=== PATIENT | female | born 1945 | race Caucasian/White ===

== ENCOUNTER 2017-10-27 00:20 | Inpatient (IN) | payer MEDICARE ==
[~2017-10-27] VITALS: Ht 157.5 cm; Wt 48.2 kg
[2017-10-27] MEDS ORDERED: CARB1TAB5 PO (00:30)
[2017-10-27] MEDS ORDERED: QUET25TA5 PO (00:30)
[2017-10-27] MEDS ORDERED: CLON0.5T3 PO (00:30)
[2017-10-27] MEDS ORDERED: MELA5TAB PO (00:30)
[2017-10-27] MEDS ORDERED: CARB1TAB2 PO (00:30)
[2017-10-27] MEDS ORDERED: ESCITALOPRAM OXA5 MG PO (00:30)
[2017-10-27] MEDS ORDERED: ONDA4TAB12 PO (01:00)
[2017-10-27] MEDS ORDERED: MAGN2400 PO (01:00)
[2017-10-27] MEDS ORDERED: ACET325T21 PO (01:00)
[2017-10-27] MEDS ORDERED: METHYL SALICYLATE/MENTHOL TOPICAL OINTMENT 29GM TUBE. TP PRN (01:00)
[2017-10-27] MEDS ORDERED: LOPE2CAP88 PO (01:00)
[2017-10-27] MEDS ORDERED: MAG355OR11 PO (01:00)
[2017-10-27] MEDS ORDERED: MECL25TA3 PO (01:00)
[2017-10-27] MEDS ORDERED: MAG HYDROX/AL HYDROX/SIMETH 30 ML ORAL.SUSP PO PRN (01:15)
[2017-10-27] MEDS ORDERED: MECLIZINE 12.5 MG TABLET. PO PRN (01:15)
[2017-10-27] MEDS ORDERED: LOPERAMIDE 2 MG CAPSULE PO PRN (01:15)
[2017-10-27 01:48] LABS: BACTERIA,URINE FEW /HPF (0-FEW); BILIRUBIN,URINE NEG (NEG); CLARITY,URINE CLEAR; COLOR,URINE YELLOW; GLUCOSE,URINE NEG (NEG); NITRITE,URINE NEG (NEG); RBC,URINE 0 /HPF (0-2); SQUAMOUS EPITHELIAL CELL,UR FEW /LPF; UROBILINOGEN,URINE 0.2 mg/dL (0.2 mg/dL)
[2017-10-27 03:50] VITALS: BP 174/94
[2017-10-27 06:35] VITALS: BP 173/67
[2017-10-27] MEDS: CARBIDOPA/LEVODOPA 25/100MG TABLET PO SCH ×3 (06:39→16:02)
[2017-10-27 07:40] LABS: BASO % 1 % (0-3); EOS % 1 % (0-3); HEMATOCRIT 35.9 % (36.0-47.0); HEMOGLOBIN 12.5 g/dL (12.0-15.5); LYMPH # 0.9 x10^3/uL (1.0-4.8); LYMPH % 16 % (24-48); MEAN CORPUSCULAR HEMOGLOBIN 33 pg (25-35); MEAN CORPUSCULAR HGB CONC 35 g/dL (31-37); MEAN CORPUSCULAR VOLUME 94 fL (79-100); MONO # 0.3 x10^3/uL (0.0-1.1); MONO % 5 % (0-9); NEUT # 4.4 x10^3uL (1.8-7.7); NEUT % 79 % (31-73); PLATELET COUNT 230 x10^3/uL (140-400); RED BLOOD COUNT 3.81 x10^6/uL (3.50-5.40); RED CELL DISTRIBUTION WIDTH 14.8 % (11.5-14.5); WHITE BLOOD COUNT 5.6 x10^3/uL (4.0-11.0)
[2017-10-27 08:00] LABS: ALBUMIN 3.7 g/dL (3.4-5.0); ALBUMIN/GLOBULIN RATIO 0.9 (1.0-1.7); CALCIUM 9.1 mg/dL (8.5-10.1); CREATININE 0.7 mg/dL (0.6-1.0); GFR 82.7; MAGNESIUM 2.1 mg/dL (1.8-2.4); POTASSIUM 3.4 mmol/L (3.5-5.1); TOTAL BILIRUBIN 0.7 mg/dL (0.2-1.0); TOTAL PROTEIN 7.7 g/dL (6.4-8.2)
[2017-10-27] MEDS ORDERED: CITALOPRAM 10 MG TABLET. PO SCH (09:00)
[2017-10-27] MEDS: QUEtiapine 25 MG TABLET. PO SCH (10:12)
[2017-10-27] MEDS: clonazePAM 0.5 MG TABLET PO SCH ×3 (10:12→19:56)
--- NOTE | 2017-10-27 12:34 | EKG ---
[address] [address] Test Date: 2017-10-27 Test Time: 11:27:26 Pat Name: TYLER ODOM Department: Room: [address] [place] [address] Gender: F Outreach Analyst: ASHOK : 1945 Requested By: MARIAH SEAMAN Order Number: [id number] Reading MD: Renaldo Mccoy MD Measurements Intervals [place] Rate: 61 P: 54 HI: 152 QRS: 11 QRSD: 86 T: 21 QT: 464 QTc: 473 Interpretive Statements SINUS RHYTHM NON-SPECIFIC ST/T CHANGES Electronically Signed On 11-04-2017 11:42:23 CDT by Renaldo Mccoy MD
[2017-10-27 14:57] LABS: THYROID STIM HORMONE (TSH) 6.263 uIU/mL (0.358-3.740)
[2017-10-27 16:49] VITALS: BP 170/79
[2017-10-27 18:14] LABS: T3 TOTAL 129 ng/dL (71-180); THYROXINE 6.4 ug/dL (4.5-12.0)
[2017-10-27] MEDS ORDERED: amLODIPine BESYLATE 5 MG TABLET PO ONE (18:45)
[2017-10-27] MEDS: CARBIDOPA/LEVODOPA CR 50/200MG TABLET.SA PO SCH (19:56)
[2017-10-27] MEDS: POTASSIUM CHLORIDE 20 MEQ TABLET.ER. PO SCH (19:57)
[2017-10-27] MEDS: rOPINIRole 0.5 MG TABLET. PO SCH (19:59)
--- NOTE | 2017-10-27 20:56 | PDOC ---
Exam Note: Mike Note: Please also refer to the separate dictated note~for this date of service dictated separately.~Patient seen individually. Discussed the patient with Nursing staff reviewed the chart.~Reviewed interim history and current functioning. Reviewed vital signs,~Labs/ Radiology~and current medications noted below. Continue current treatment with the changes noted in the dictated addendum note Assessment: Vital Signs: Vital Signs Date Time Temp Pulse Resp B/P (MAP) Pulse Ox O2 Delivery O2 Flow Rate FiO2 10/27/17 19:58 59 138/67 10/27/17 16:49 97.1 20 100 10/27/17 03:50 Room Air I&O Intake and Output 10/27/17 07:00 Intake Total 80 ml Balance 80 ml Intake Oral 80 ml Labs: Laboratory Tests Test 10/27/17 01:10 10/27/17 07:23 Urine Collection Type Unknown Urine Color Yellow Urine Clarity Clear Urine pH 7.0 Urine Specific [place] 1.015 Urine Protein Neg (NEG-TRACE) Urine Glucose (UA) Neg mg/dL (NEG) Urine Ketones (Stick) Trace mg/dL (NEG) Urine Blood Neg (NEG) Urine Nitrite Neg (NEG) Urine Bilirubin Neg (NEG) Urine Urobilinogen Dipstick 0.2 mg/dL (0.2 mg/dL) Urine Leukocyte Esterase Trace (NEG) Urine RBC 0 /HPF (0-2) Urine WBC 1-4 /HPF (0-4) Urine Squamous Epithelial Cells Few /LPF Urine Bacteria Few /HPF (0-FEW) White Blood Count 5.6 x10^3/uL (4.0-11.0) Red Blood Count 3.81 x10^6/uL (3.50-5.40) Hemoglobin 12.5 g/dL (12.0-15.5) Hematocrit 35.9 % (36.0-47.0) L Mean Corpuscular Volume 94 fL (79-100) Mean Corpuscular Hemoglobin 33 pg (25-35) Mean Corpuscular Hemoglobin Concent 35 g/dL (31-37) Red Cell Distribution Width 14.8 % (11.5-14.5) H Platelet Count 230 x10^3/uL (140-400) Neutrophils (%) (Auto) 79 % (31-73) H Lymphocytes (%) (Auto) 16 % (24-48) L Monocytes (%) (Auto) 5 % (0-9) Eosinophils (%) (Auto) 1 % (0-3) Basophils (%) (Auto) 1 % (0-3) Neutrophils # (Auto) 4.4 x10^3uL (1.8-7.7) Lymphocytes # (Auto) 0.9 x10^3/uL (1.0-4.8) L Monocytes # (Auto) 0.3 x10^3/uL (0.0-1.1) Eosinophils # (Auto) 0.0 x10^3/uL (0.0-0.7) Basophils # (Auto) 0.0 x10^3/uL (0.0-0.2) Sodium Level 141 mmol/L (136-145) Potassium Level 3.4 mmol/L (3.5-5.1) L Chloride Level 102 mmol/L (98-107) Carbon Dioxide Level 31 mmol/L (21-32) Anion Gap 8 (6-14) Blood Urea Nitrogen 10 mg/dL (7-20) Creatinine 0.7 mg/dL (0.6-1.0) Estimated GFR (Cockcroft-Gault) 82.7 BUN/Creatinine Ratio 14 (6-20) Glucose Level 97 mg/dL (70-99) Calcium Level 9.1 mg/dL (8.5-10.1) Magnesium Level 2.1 mg/dL (1.8-2.4) Iron Level 114 ug/dL (50-170) Total Iron Binding Capacity 258 ug/dL (250-450) Iron Saturation 44 % (15-34) H Total Bilirubin 0.7 mg/dL (0.2-1.0) Aspartate Amino Transferase (AST) 10 U/L (15-37) L Alanine Aminotransferase (ALT) 9 U/L (14-59) L Alkaline Phosphatase 64 U/L (46-116) Total Protein 7.7 g/dL (6.4-8.2) Albumin 3.7 g/dL (3.4-5.0) Albumin/Globulin Ratio 0.9 (1.0-1.7) L Triglycerides Level 94 mg/dL (0-150) Cholesterol Level 224 mg/dL (0-200) H LDL Cholesterol, Calculated 148 mg/dL (0-100) H VLDL Cholesterol, Calculated 18 mg/dL (0-40) Non-HDL Cholesterol Calculated 166 mg/dL (0-129) H HDL Cholesterol 58 mg/dL (40-60) Cholesterol/HDL Ratio 3.0 Thyroid Stimulating Hormone (TSH) 6.263 uIU/mL (0.358-3.740) Thyroxine (T4) 6.4 ug/dL (4.5-12.0) Total Triiodothyronine (TT3) 129 ng/dL (71-180) Rapid Plasma Reagin Pending Current Medications: Meds: Current Medications Multi-Ingredient Ointment (Analgesic [place]) 1 cherie PRN QID PRN TP MUSCLE PAIN; Start 10/27/17 at 01:00 Clonazepam (KlonoPIN) 0.5 mg TID PO Last administered on 10/27/17at 19:56; Start 10/27/17 at 09:00 Quetiapine Fumarate (SEROquel) 12.5 mg DAILY PO Last administered on 10/27/17at 10:12; Start 10/27/17 at 09:00 Citalopram Hydrobromide (CeleXA) 30 mg DAILY PO Last administered on 10/27/17at 10:12; Start 10/27/17 at 09:00; Stop 10/27/17 at 18:35; Status DC Melatonin 3 mg PRN QHS PRN PO INSOMNIA; Start 10/27/17 at 01:15 Acetaminophen (Tylenol) 650 mg PRN Q4HRS PRN PO PAIN / TEMP; Start 10/27/17 at 01:15 Carbidopa/Levodopa (Sinemet 25/100) 1 tab TIDAC PO Last administered on at 16:02; Start 10/27/17 at 07:30 Carbidopa/Levodopa (Sinemet Cr) 1 tab.sa QHS PO Last administered on 10/27/17at 19:56; Start 10/27/17 at 21:00 Loperamide HCl (Imodium) 2 mg PRN QID PRN PO DIARRHEA; Start 10/27/17 at 01:15 Ondansetron HCl (Zofran Odt) 4 mg PRN BID PRN PO NAUSEA/VOMITING; Start at 01:15 Al Hydroxide/Mg Hydroxide (Mylanta Plus Xs) 30 ml PRN Q4HRS PRN PO DYSPEPSIA; Start 10/27/17 at 01:15 Magnesium Hydroxide (Milk Of Magnesia) 2,400 mg PRN DAILY PRN PO CONSTIPATION; Start 10/27/17 at 01:15 Meclizine HCl (Antivert) 25 mg PRN TID PRN PO Dizziness; Start 10/27/17 at 01:15 Duloxetine HCl (Cymbalta) 30 mg DAILY PO ; Start 10/28/17 at 09:00; Stop 10/31/17 at 08:59 Duloxetine HCl (Cymbalta) 60 mg DAILY PO ; Start 10/31/17 at 09:00 Amlodipine Besylate (Norvasc) 5 mg 1X ONCE PO Last administered on 10/27/17at 19 :58; Start 10/27/17 at 18:45; Stop 10/27/17 at 18:49; Status DC Amlodipine Besylate (Norvasc) 10 mg DAILY PO ; Start 10/28/17 at 09:00 Potassium Chloride (Klor-Con) 20 meq TID PO Last administered on 10/27/17at 19:57 ; Start 10/27/17 at 21:00 Ropinirole HCl (Requip) 0.5 mg TID PO Last administered on 10/27/17at 19:59; Start 10/27/17 at 21:00 Active Scripts Active Reported Meclizine Hcl 25 Mg Tablet 25 Mg PO PRN TID PRN Milk Of Magnesia (Magnesium Hydroxide) 2,400 Mg/10 Ml Oral.susp 2,400 Mg PO PRN DAILY PRN Maalox Advanced Suspension (Mag Hydrox/Aluminum Hyd/Simeth) 355 Ml Oral.susp 30 Ml PO PRN Q4HRS PRN Ondansetron Odt (Ondansetron) 4 Mg Tab.rapdis 4 Mg PO PRN BID PRN Imodium A-D (Loperamide HCl) 2 Mg Capsule 2 Mg PO PRN PRN Acetaminophen 325 Mg Tablet 650 Mg PO PRN Q4HRS PRN Sinemet Cr 50-200 Tablet (Carbidopa/Levodopa) 1 Each Tablet.er 1 Tab PO QHS Sinemet 25-100 Mg Tablet (Carbidopa/Levodopa) 1 Each Tablet 1 Tab PO TID AT 0 Seroquel (Quetiapine Fumarate) 25 Mg Tablet 12.5 Mg PO DAILY Melatonin 5 Mg Tablet 5 Mg PO PRN QHS PRN Escitalopram Oxalate 5 Mg Tablet 15 Mg PO DAILY Clonazepam 0.5 Mg Tablet 0.5 Mg PO TID AT 01/07/1900 I have reviewed the current psychotropics carefully including drug interactions. Risk benefit ratio favors no change other than as noted in my dictated progress note. Diagnosis: Problems: (1) Anxiety disorder (2) Major depressive disorder, recurrent episode (3) Impulse control disorder MARIAH SEAMAN MD October 27, 2017 20:56
[2017-10-28 00:13] LABS: HEMOGLOBIN A1C 4.8 % (4.8-5.6)
[2017-10-28 05:39] VITALS: BP 136/77
[2017-10-28] MEDS: CARBIDOPA/LEVODOPA 25/100MG TABLET PO SCH ×3 (07:23→16:48)
[2017-10-28] MEDS: ACETAMINOPHEN 325 MG TABLET PO PRN (07:33)
--- NOTE | 2017-10-28 07:36 | HP ---
ADMIT DATE: 10/27/2017 PSYCHIATRIC ADMISSION HISTORY/EVALUATION This is a late entry for date of service 10/27/2017 and covers the elements not covered in my initial note of 10/27/2017. SUBJECTIVE: I met with the patient evening of 10/27/2017 for this evaluation. Discussed with nursing staff, reviewed the chart and previously discussed with nursing staff on 2 or 3 occasions to gather background historical information prompting this referral for admission from the [facility] Emergency Room, where she presented from [facility] referred by her primary care physician after she attempted suicide by cutting her left forearm with a razor blade and had left a suicide note for the family. CHIEF COMPLAINT: "Yes, I cut my wrist. I cannot deal with this." The patient related to her Parkinson disease and the tremors that is causing her worsening symptoms of depression as a consequence of this. HISTORY OF PRESENT ILLNESS: The patient relates being increasingly depressed, feeling hopeless, helpless, worthless over the past several weeks. She was previously an inpatient at [facility] in 05/2017 and since then has been back at the [facility]. She complains of being overwhelmed with her worsening Parkinson's, having some sleep and appetite changes, and then the resulting suicidal ideation when she decided to end her life and slashed her wrist resulting in their trip to the ER and referral to us. No clear history of bipolar disorder or homicidal ideation. PAST PSYCHIATRIC HISTORY: As above. MEDICAL HISTORY: Parkinson disease, hypertension, short term memory deficits. UA was sent for culture at admission. ALLERGIES: CODEINE, FLAGYL, SULFA. CODE STATUS: DNR. DIET: Regular. Accu-Cheks: None. MEDICATIONS: Takes her medications whole. AMBULATES: with walker. CURRENT PSYCHOTROPICS: Seroquel 12.5 mg daily, started 10/23/2017; Celexa 30 mg a day, Klonopin 0.5 mg 3 times a day, melatonin 3 mg at bedtime. FAMILY HISTORY: Noncontributory. SOCIAL HISTORY: No history of alcohol or drug abuse, physical, sexual or elder abuse. She is not known to be a perpetrator. 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 REACTION TO HOSPITALIZATION: The patient accepting of this assets, stable living at the facility and supportive family. MENTAL STATUS EXAMINATION: The patient was seen individually evening of 10/27/2017. She is alert, oriented, quite verbal open forthcoming. Mood is depressed. Affect is mood congruent. She is quite anxious. She does admit to feeling hopeless, helpless, worthless, speech coherent. Thought processes goal directed. No active suicidal or homicidal ideation, but she does admit she tried to end her life by slashing her wrist. LABORATORY DATA: Reviewed. IMPRESSION: Major depressive disorder, recurrent with suicidal ideation; anxiety disorder, unspecified; cognitive disorder, unspecified. Rest as above. PLAN: Admit to Geropsychiatry Unit at [facility]. I will see the patient daily individually from a psychiatric standpoint, medical followup per Dr. Walters/Dr. Camargo. We will go ahead and change the patient's Celexa to Cymbalta 30 mg a day increasing in 3-5 days up to 60 mg a day in an attempt to change her SSRI to an SNRI, hopefully with added efficacy. May consider augmentation with an increase in Seroquel in due course. Neurology consult with Dr. Crowell for her Parkinson's and further followup at [facility] for her Parkinson disease, where she sees Dr. Baxter. Estimated length of stay 10-12 days and she will return back to [facility] at discharge. MAN Yeni SEAMAN MD DR: SONALI/giovana JOB#: [id number] / [id number]
[2017-10-28] MEDS: POTASSIUM CHLORIDE 20 MEQ TABLET.ER. PO SCH ×3 (09:55→19:48)
[2017-10-28] MEDS: QUEtiapine 25 MG TABLET. PO SCH (09:55)
[2017-10-28] MEDS: rOPINIRole 0.5 MG TABLET. PO SCH ×3 (09:55→19:48)
[2017-10-28] MEDS: DULoxetine HCL 30 MG CAPSULE.DR PO SCH (09:58)
[2017-10-28] MEDS: amLODIPine BESYLATE 10 MG TABLET PO SCH (09:58)
[2017-10-28] MEDS: clonazePAM 0.5 MG TABLET PO SCH ×3 (09:58→19:49)
--- NOTE | 2017-10-28 13:48 | PN ---
DATE: 10/28/2017 SUBJECTIVE: The patient denies any new medical or neurological complaints. She has had Parkinson disease since 2014 and currently presented with chief complaints of resting tremor of the extremities, more prominent in the lower extremities. She has been suffering from major depressions with recent suicidal ideations and attempt by cutting her left forearm. Currently, she stated her tremor has somewhat improved and I did not see any resting tremor of the lower extremity. OBJECTIVE: GENERAL: Well-developed, well-nourished white female, not in acute distress. VITAL SIGNS: Blood pressure is 136/77, respiratory rate 20, pulse is 61, temperature 98.4, oxygen saturation is 96%. HEENT: Normocephalic, atraumatic, otherwise unremarkable. NECK: Supple. Negative for carotid bruit, lymphadenopathy, or thyromegaly. LUNGS: Clear to A and P. CARDIOVASCULAR: Regular rate and rhythm, normal S1, S2. ABDOMEN: Soft. Bowel sounds positive. EXTREMITIES: Negative for cyanosis, clubbing, pitting edema. NEUROLOGICAL EXAMINATION: Mental Status: The patient is alert and oriented x 3. Speech is fluent. There is no language dysfunction. Memory, judgment, and abstracting thinking are fair. The patient denies hallucination or delusion. Cranial nerves are intact. No focal motor or sensory deficit. The patient does not have any resting tremor this morning. Deep tendon reflexes are symmetric and active without pathology responses. Gait: The stance is steady. The patient uses a walker for ambulation. IMPRESSION: 1. Parkinson disease. Currently, started on a dopamine agonist ropinirol at 0.5 mg t.i.d. 2. Hypertension -- improved. 3. Multiple psychiatric problems include depressions, anxiety, and suicidal ideation and recent suicidal attempt. RECOMMENDATIONS: We will continue with current medical and psychiatric care. M Lianne KERNS MD DR: ALIYAH/giovana JOB#: [id number] / [id number] MANUELITO
--- NOTE | 2017-10-28 13:56 | CONS ---
DATE OF CONSULTATION: 10/27/2017 NEUROLOGY CONSULTATION REASON FOR CONSULTATION: Management of Parkinson's disease. HISTORY OF PRESENT ILLNESS: This is a 71-year-old right-handed female who was admitted geropsychiatric unit because of increasing symptoms of depressions. A neuro consult was requested because the patient has had a history of Parkinson's disease diagnosed in 2013. The patient presented to [facility] with a chief complaint of resting tremors of the lower extremities and sometimes of the upper extremities. She has had constant bradykinesia and intermittent balance impairment resulted in multiple falls. The patient has been on carbidopa/levodopa since the diagnosis, but in the last 3 weeks, she has noticed increased symptoms of tremor of the lower extremities, more prominent at rest. The patient was admitted to [facility] Emergency Room, transferred from [facility] after she had suicidal attempt by cutting her left forearm with a scissor blade and left a suicidal note. Currently, she denies headaches, visual disturbances, nausea, vomiting, chest pain, shortness of breath or palpitation, dysarthria, dysphagia, weakness, or paresthesia. PAST MEDICAL HISTORY: Significant for Parkinson disease diagnosed in 2013, hypertension, memory loss, severe depression, and recently suicidal attempt as described above. SOCIAL HISTORY: The patient is a resident of [facility]. 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 She denies smoking, alcohol drinking, or illicit drug use. FAMILY HISTORY: Noncontributory. CURRENT HOME MEDICATIONS: Tylenol, carbidopa/levodopa CR 50/100 at bedtime and carbidopa/levodopa 25/100 t.i.d., clonazepam, Celexa, Imodium, meclizine, melatonin, and Seroquel. ALLERGIES: SULFONAMIDE ANTIBIOTICS, SULFA DRUGS, CODEINE, and metronidazole. REVIEW OF SYSTEMS: Consistent with symptoms of parkinsonism of resting tremor of the upper and lower extremities, bradykinesia, frequent falls, and impaired balance along with depressions. PHYSICAL EXAMINATION: GENERAL: Well developed, well nourished white female, not in acute distress. She weighs 102.3 pounds. VITAL SIGNS: Blood pressure 170/79, respiratory rate 20, pulse is 60, temperature 97.1, oxygen saturation is 100% on room air. HEENT: Normocephalic, atraumatic, otherwise unremarkable. NECK: Supple. Negative for carotid bruit, lymphadenopathy, or thyromegaly. LUNGS: Clear to A and P. CARDIOVASCULAR: Regular rate and rhythm, normal S1-S2. There is no S3, S4 or murmur. ABDOMEN: Soft. Bowel sounds positive. EXTREMITIES: Negative for cyanosis, clubbing, or pitting edema. NEUROLOGICAL: MENTAL STATUS: The patient is alert and oriented x 3. The speech is fluent. There is no language dysfunction. The patient recalls 2/3 immediately and after 1 and 3 minutes. Judgment and abstracting thinking are fair. The patient appears to be anxious and depressed. CRANIAL NERVES: Visual brand are full. The pupils are reactive to light and accommodation. The extraocular movements are intact. There is no nystagmus. There is no facial motor or sensory deficit. Hearing is intact bilaterally. The palate is elevated symmetrically. Sternocleidomastoid muscles are powerful bilaterally. The patient shrugs her shoulders symmetrically. Protrudes her tongue in the midline without fasciculation or atrophy. MOTOR: No focal muscle bulk is seen. The tone is normal. The strength is 5/5 throughout. Sensory examination reveals normal pinprick, light touch, vibratory, and position senses. Deep tendon reflexes are symmetric and active without pathologic responses. Gait: The stance is steady. The patient uses a walker for ambulation. The patient does not swing her arms when she does not use a walker and she has a masked face typical for parkinsonism. Intermittent resting tremor of the lower extremities, more prominent on the left side, was noted, but the tremor disappeared when she stands up. Intermittent tremor of the left upper extremity was also noted, which disappeared when she extends her upper extremities. IMPRESSION: 1. Parkinson disease diagnosed in 2013, presented with intermittent resting tremor of the upper and lower extremities, more prominent in the left lower extremity. The tremor resolved by standing or moving her arms or legs. 2. Major depressions with suicidal ideation and attempt. 3. Anxiety disorders. 4. Hypertension. 5. Possible early dementia. RECOMMENDATION: 1. We will start the patient ropinirole 0.5 mg t.i.d. 2. Continue with current management with carbidopa/levodopa as stated above: 3. Continue with current psychiatric care initiated by Dr. Monreal. M Lianne KERNS MD DR: Vanessa JOB#: [id number] / [id number] MANUELITO
[2017-10-28 16:23] VITALS: BP 123/74
[2017-10-28] MEDS: CARBIDOPA/LEVODOPA CR 50/200MG TABLET.SA PO SCH (19:48)
[2017-10-28] MEDS: MELATONIN 3 MG TABLET PO PRN (19:50)
--- NOTE | 2017-10-28 21:02 | PDOC ---
Exam Note: Mike Note: Please also refer to the separate dictated note~for this date of service dictated separately.~Patient seen individually. Discussed the patient with Nursing staff reviewed the chart.~Reviewed interim history and current functioning. Reviewed vital signs,~Labs/ Radiology~and current medications noted below. Continue current treatment with the changes noted in the dictated addendum note Assessment: Vital Signs: Vital Signs Date Time Temp Pulse Resp B/P (MAP) Pulse Ox O2 Delivery O2 Flow Rate FiO2 10/28/17 16:23 97.1 56 18 123/74 (90) 99 10/27/17 03:50 Room Air I&O Intake and Output 10/28/17 07:00 Intake Total 560 ml Balance 560 ml Intake Oral 560 ml Current Medications: Meds: Current Medications Multi-Ingredient Ointment (Analgesic [place]) 1 cherie PRN QID PRN TP MUSCLE PAIN; Start 10/27/17 at 01:00 Clonazepam (KlonoPIN) 0.5 mg TID PO Last administered on 10/28/17 19:49; Start 10/27/17 at 09:00 Quetiapine Fumarate (SEROquel) 12.5 mg DAILY PO Last administered on 10/28/17 09:55; Start 10/27/17 at 09:00 Citalopram Hydrobromide (CeleXA) 30 mg DAILY PO Last administered on 10/27/17at 10:12; Start 10/27/17 at 09:00; Stop 10/27/17 at 18:35; Status DC Melatonin 3 mg PRN QHS PRN PO INSOMNIA Last administered on 10/28/17at 19:50; Start 10/27/17 at 01:15 Acetaminophen (Tylenol) 650 mg PRN Q4HRS PRN PO PAIN / TEMP Last administered on 10/28/17 07:33; Start 10/27/17 at 01:15 Carbidopa/Levodopa (Sinemet 25/100) 1 tab TIDAC PO Last administered on 16:48; Start 10/27/17 at 07:30 Carbidopa/Levodopa (Sinemet Cr) 1 tab.sa QHS PO Last administered on 10/28/17 19:48; Start 10/27/17 at 21:00 Loperamide HCl (Imodium) 2 mg PRN QID PRN PO DIARRHEA; Start 10/27/17 at 01:15 Ondansetron HCl (Zofran Odt) 4 mg PRN BID PRN PO NAUSEA/VOMITING; Start at 01:15 Al Hydroxide/Mg Hydroxide (Mylanta Plus Xs) 30 ml PRN Q4HRS PRN PO DYSPEPSIA; Start 10/27/17 at 01:15 Magnesium Hydroxide (Milk Of Magnesia) 2,400 mg PRN DAILY PRN PO CONSTIPATION; Start 10/27/17 at 01:15 Meclizine HCl (Antivert) 25 mg PRN TID PRN PO Dizziness; Start 10/27/17 at 01:15 Duloxetine HCl (Cymbalta) 30 mg DAILY PO Last administered on 10/28/17at 09:58; Start 10/28/17 at 09:00; Stop 10/31/17 at 08:59 Duloxetine HCl (Cymbalta) 60 mg DAILY PO ; Start 10/31/17 at 09:00 Amlodipine Besylate (Norvasc) 5 mg 1X ONCE PO Last administered on 10/27/17at 19 :58; Start 10/27/17 at 18:45; Stop 10/27/17 at 18:49; Status DC Amlodipine Besylate (Norvasc) 10 mg DAILY PO Last administered on 10/28/17at 09: 58; Start 10/28/17 at 09:00 Potassium Chloride (Klor-Con) 20 meq TID PO Last administered on 10/28/17at 19:48 ; Start 10/27/17 at 21:00 Ropinirole HCl (Requip) 0.5 mg TID PO Last administered on 10/28/17at 19:48; Start 10/27/17 at 21:00 Active Scripts Active Reported Meclizine Hcl 25 Mg Tablet 25 Mg PO PRN TID PRN Milk Of Magnesia (Magnesium Hydroxide) 2,400 Mg/10 Ml Oral.susp 2,400 Mg PO PRN DAILY PRN Maalox Advanced Suspension (Mag Hydrox/Aluminum Hyd/Simeth) 355 Ml Oral.susp 30 Ml PO PRN Q4HRS PRN Ondansetron Odt (Ondansetron) 4 Mg Tab.rapdis 4 Mg PO PRN BID PRN Imodium A-D (Loperamide HCl) 2 Mg Capsule 2 Mg PO PRN PRN Acetaminophen 325 Mg Tablet 650 Mg PO PRN Q4HRS PRN Sinemet Cr 50-200 Tablet (Carbidopa/Levodopa) 1 Each Tablet.er 1 Tab PO QHS Sinemet 25-100 Mg Tablet (Carbidopa/Levodopa) 1 Each Tablet 1 Tab PO TID AT 0 Seroquel (Quetiapine Fumarate) 25 Mg Tablet 12.5 Mg PO DAILY Melatonin 5 Mg Tablet 5 Mg PO PRN QHS PRN Escitalopram Oxalate 5 Mg Tablet 15 Mg PO DAILY Clonazepam 0.5 Mg Tablet 0.5 Mg PO TID AT 01/07/1900 I have reviewed the current psychotropics carefully including drug interactions. Risk benefit ratio favors no change other than as noted in my dictated progress note. Diagnosis: Problems: (1) Anxiety disorder (2) Major depressive disorder, recurrent episode (3) Impulse control disorder MARIAH SEAMAN MD October 28, 2017 21:02
--- NOTE | 2017-10-29 03:59 | CONS ---
DATE OF CONSULTATION: 10/28/2017 REASON FOR CONSULTATION: Medical management. HISTORY OF PRESENT ILLNESS: The patient is a 71-year-old patient, who basically was referred for admission from [facility], where she presented from [facility] after she attempted suicide by cutting her left forearm with a razor blade, had left a suicide note for her family stating that she cut her wrist and cannot deal with this anymore, stating that her Parkinson disease and tremors are causing her worsening symptoms and depression as a consequence of this. 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 She was basically admitted because of suicidal attempt. PAST MEDICAL HISTORY: Significant for Parkinson's disease, hypertension. ALLERGIES: SHE IS ALLERGIC TO CODEINE, FLAGYL, AND SULFA. MEDICATIONS: She is currently on the following: She is on 650 mg every 4 hours as needed, clonazepam 0.5 mg 3 times a day, escitalopram oxalate 15 mg once a day, quetiapine fumarate 12.5 mg daily, carbidopa/levodopa 25/100 mg 1 tablet 3 times a day and carbidopa and levodopa at bedtime. She is on Maalox 30 mL every 4 hours, loperamide 2 mg p.o. as needed for diarrhea, magnesium hydroxide, milk of magnesia 30 mL p.o. daily for constipation, meclizine 25 mg 3 times a day for dizziness, ondansetron 4 mg twice a day and melatonin for insomnia. FAMILY HISTORY: Unremarkable. SOCIAL HISTORY: She is , has 3 children. She does not smoke, drink alcohol or recreational drugs. She is now living in assisted living. PHYSICAL EXAMINATION: GENERAL: When I examined her this afternoon, she was sitting comfortably in her chair, in no apparent respiratory distress, slightly pale, but no jaundice, cyanosis or thyromegaly. No jugular venous distention. No limb edema. VITAL SIGNS: Her heart rate was 56, blood pressure 123/74, temperature was 97.1, respiratory rate was 18 and oxygen saturation was 99% on room air. HEAD, EYES, EARS, NOSE, and THROAT: Showed normocephalic, atraumatic. NECK: Supple. HEART: Showed normal first and second heart sounds. No gallop, rub or murmur. CHEST: Clear to auscultation. No crepitation or rhonchi. ABDOMEN: Soft, nontender. NEUROLOGIC: She is awake, alert, responding appropriately. All cranial nerves intact. EXTREMITIES: She moves extremities without difficulty. She ambulates with a walker with a slow shuffling gait. She at least when I saw her, she had displayed no evidence of any parkinsonian tremors, although she seemed to be experiencing what . LABORATORY DATA: Her lab work showed a white cell count of 5600, hemoglobin 12.5, hematocrit 36, MCV 94 and platelet count 230,000 with normal manual differential. Her chemistry showed a serum sodium of 141, potassium 3.4, chloride 102, bicarbonate 31, anion gap of 8, BUN 10, creatinine 0.7, estimated GFR was 83, glucose 97, calcium was 9.1, magnesium was 2.1. Total bilirubin, AST, ALT, alkaline phosphatase were normal. Total protein 7.7, albumin 3.7. Her serum Hemoglobin A1c was 4.8%. Serum iron of 14, TIBC 258 and percent saturation was 44%. Her serum triglycerides were 94, total cholesterol 224, LDL was 148, VLDL was only 18 and HDL cholesterol was 58, ratio was 3. Her TSH was slightly elevated 6.63, but total T4 and total T3 were normal. Her vitamin B12 was 333 pg/mL and 25-hydroxyvitamin D was 41 ng/mL, which is well within normal range. Urinalysis was essentially unremarkable and the RPR is nonreactive. IMPRESSION: In summary, this is a 71-year-old female patient, who basically was admitted because she cut her forearm with a razor as a suicidal attempt and left a note to her family. All this in the account of increasingly depressed, feeling hopeless, helpless, worthless over the last several weeks because of worsening Parkinson's disease with recurrent falls. From a medical point of view, at least her vital signs seemed to be stable. Her lab work and medications seemed to be all appropriate. We have already consulted Dr. Crowell to assist with the management of his Parkinson's disease. Meanwhile, I will continue to follow all the lab work, it is still pending at the time of this dictation and make necessary recommendation. Thank you, Dr. Monreal for allowing me to participate in the care of this patient. RENETTA ALVARADO MD DR: RUCHI/giovana JOB#: [id number] / [id number]
[2017-10-29 05:55] VITALS: BP 123/57
[2017-10-29] MEDS: CARBIDOPA/LEVODOPA 25/100MG TABLET PO SCH ×3 (07:17→16:56)
[2017-10-29] MEDS: ACETAMINOPHEN 325 MG TABLET PO PRN (07:20)
[2017-10-29] MEDS: POTASSIUM CHLORIDE 20 MEQ TABLET.ER. PO SCH ×3 (07:46→19:30)
[2017-10-29] MEDS: DULoxetine HCL 30 MG CAPSULE.DR PO SCH (07:46)
[2017-10-29] MEDS: rOPINIRole 0.5 MG TABLET. PO SCH ×3 (07:46→19:30)
[2017-10-29] MEDS: amLODIPine BESYLATE 10 MG TABLET PO SCH (07:47)
[2017-10-29] MEDS: QUEtiapine 25 MG TABLET. PO SCH (07:47)
[2017-10-29] MEDS: clonazePAM 0.5 MG TABLET PO SCH ×3 (07:48→19:30)
[2017-10-29 15:55] VITALS: BP 108/65
[2017-10-29] MEDS: CARBIDOPA/LEVODOPA CR 50/200MG TABLET.SA PO SCH (19:30)
--- NOTE | 2017-10-29 21:04 | PDOC ---
Exam Note: Mike Note: Please also refer to the separate dictated note~for this date of service dictated separately.~Patient seen individually. Discussed the patient with Nursing staff reviewed the chart.~Reviewed interim history and current functioning. Reviewed vital signs,~Labs/ Radiology~and current medications noted below. Continue current treatment with the changes noted in the dictated addendum note Assessment: Vital Signs: Vital Signs Date Time Temp Pulse Resp B/P (MAP) Pulse Ox O2 Delivery O2 Flow Rate FiO2 10/29/17 15:55 97.0 66 16 108/65 (79) 98 10/27/17 03:50 Room Air I&O Intake and Output 10/29/17 07:00 Intake Total 600 ml Balance 600 ml Intake Oral 600 ml Current Medications: Meds: Current Medications Multi-Ingredient Ointment (Analgesic [place]) 1 cherie PRN QID PRN TP MUSCLE PAIN; Start 10/27/17 at 01:00 Clonazepam (KlonoPIN) 0.5 mg TID PO Last administered on 10/29/17 19:30; Start 10/27/17 at 09:00 Quetiapine Fumarate (SEROquel) 12.5 mg DAILY PO Last administered on 10/29/17 07:47; Start 10/27/17 at 09:00 Citalopram Hydrobromide (CeleXA) 30 mg DAILY PO Last administered on 10/27/17 10:12; Start 10/27/17 at 09:00; Stop 10/27/17 at 18:35; Status DC Melatonin 3 mg PRN QHS PRN PO INSOMNIA Last administered on 10/28/17 19:50; Start 10/27/17 at 01:15 Acetaminophen (Tylenol) 650 mg PRN Q4HRS PRN PO PAIN / TEMP Last administered on 10/29/17 07:20; Start 10/27/17 at 01:15 Carbidopa/Levodopa (Sinemet 25/100) 1 tab TIDAC PO Last administered on 16:56; Start 10/27/17 at 07:30 Carbidopa/Levodopa (Sinemet Cr) 1 tab.sa QHS PO Last administered on 10/29/17 19:30; Start 10/27/17 at 21:00 Loperamide HCl (Imodium) 2 mg PRN QID PRN PO DIARRHEA; Start 10/27/17 at 01:15 Ondansetron HCl (Zofran Odt) 4 mg PRN BID PRN PO NAUSEA/VOMITING; Start at 01:15 Al Hydroxide/Mg Hydroxide (Mylanta Plus Xs) 30 ml PRN Q4HRS PRN PO DYSPEPSIA; Start 10/27/17 at 01:15 Magnesium Hydroxide (Milk Of Magnesia) 2,400 mg PRN DAILY PRN PO CONSTIPATION; Start 10/27/17 at 01:15 Meclizine HCl (Antivert) 25 mg PRN TID PRN PO Dizziness; Start 10/27/17 at 01:15 Duloxetine HCl (Cymbalta) 30 mg DAILY PO Last administered on 10/29/17at 07:46; Start 10/28/17 at 09:00; Stop 10/31/17 at 08:59 Duloxetine HCl (Cymbalta) 60 mg DAILY PO ; Start 10/31/17 at 09:00 Amlodipine Besylate (Norvasc) 5 mg 1X ONCE PO Last administered on 10/27/17at 19 :58; Start 10/27/17 at 18:45; Stop 10/27/17 at 18:49; Status DC Amlodipine Besylate (Norvasc) 10 mg DAILY PO Last administered on 10/29/17at 07: 47; Start 10/28/17 at 09:00 Potassium Chloride (Klor-Con) 20 meq TID PO Last administered on 10/29/17at 19:30 ; Start 10/27/17 at 21:00 Ropinirole HCl (Requip) 0.5 mg TID PO Last administered on 10/29/17at 19:30; Start 10/27/17 at 21:00 Active Scripts Active Reported Meclizine Hcl 25 Mg Tablet 25 Mg PO PRN TID PRN Milk Of Magnesia (Magnesium Hydroxide) 2,400 Mg/10 Ml Oral.susp 2,400 Mg PO PRN DAILY PRN Maalox Advanced Suspension (Mag Hydrox/Aluminum Hyd/Simeth) 355 Ml Oral.susp 30 Ml PO PRN Q4HRS PRN Ondansetron Odt (Ondansetron) 4 Mg Tab.rapdis 4 Mg PO PRN BID PRN Imodium A-D (Loperamide HCl) 2 Mg Capsule 2 Mg PO PRN PRN Acetaminophen 325 Mg Tablet 650 Mg PO PRN Q4HRS PRN Sinemet Cr 50-200 Tablet (Carbidopa/Levodopa) 1 Each Tablet.er 1 Tab PO QHS Sinemet 25-100 Mg Tablet (Carbidopa/Levodopa) 1 Each Tablet 1 Tab PO TID AT 0 Seroquel (Quetiapine Fumarate) 25 Mg Tablet 12.5 Mg PO DAILY Melatonin 5 Mg Tablet 5 Mg PO PRN QHS PRN Escitalopram Oxalate 5 Mg Tablet 15 Mg PO DAILY Clonazepam 0.5 Mg Tablet 0.5 Mg PO TID AT 01/07/1900 I have reviewed the current psychotropics carefully including drug interactions. Risk benefit ratio favors no change other than as noted in my dictated progress note. Diagnosis: Problems: (1) Anxiety disorder (2) Major depressive disorder, recurrent episode (3) Impulse control disorder MARIAH SEAMAN MD October 29, 2017 21:04
[2017-10-30 06:19] VITALS: BP 129/75
[2017-10-30] MEDS: amLODIPine BESYLATE 10 MG TABLET PO SCH (07:45)
[2017-10-30] MEDS: POTASSIUM CHLORIDE 20 MEQ TABLET.ER. PO SCH ×3 (07:45→19:33)
[2017-10-30] MEDS: QUEtiapine 25 MG TABLET. PO SCH (07:46)
[2017-10-30] MEDS: rOPINIRole 0.5 MG TABLET. PO SCH ×3 (07:46→19:33)
[2017-10-30] MEDS: DULoxetine HCL 30 MG CAPSULE.DR PO SCH (07:46)
[2017-10-30] MEDS: CARBIDOPA/LEVODOPA 25/100MG TABLET PO SCH ×3 (07:46→16:30)
[2017-10-30] MEDS: clonazePAM 0.5 MG TABLET PO SCH ×3 (07:46→19:33)
[2017-10-30] MEDS: ACETAMINOPHEN 325 MG TABLET PO PRN (16:30)
[2017-10-30 16:53] VITALS: BP 117/62
--- NOTE | 2017-10-30 17:23 | PN ---
DATE: 10/28/2017 This is a late entry 10/28, covers elements not covered in my initial note 10/28. SUBJECTIVE: The patient was staffed at treatment team meeting with the entire team in the morning, seen individually in the evening. The patient remains somewhat depressed, anxious, minimizes circumstances prompting admission, minimizes her admission to the Psychiatry Unit at [facility] in May. States this was for her Parkinson's disease. Insight is rather limited and wanting to be returned back to the assisted living. I addressed with her at length the need for stabilization to prevent repeated hospitalizations or another suicide attempt. REVIEW OF SYSTEMS: Ambulation impaired, with a walker. No CV, , pulmonary, eye, ENT system symptoms on review. MENTAL STATUS EXAM: Reasonably oriented. Speech coherent, has some latency. Abstraction fair, computation impaired, language function intact. Mood and affect still depressed, anxious, but improved. Salima, social science instructor had also called me earlier in the day and she has talked to the patient at length about goals for this hospitalization to prevent readmission. IMPRESSION: Major depressive disorder, in partial remission with status post suicide attempt. PLAN: She is currently on Cymbalta 30 mg a day. We will increase gradually. Continue Seroquel. Rest unchanged including Klonopin, which may need to taper. MARIAH SEAMAN MD DR: SONALI/giovana JOB#: [id number] / [id number]
[2017-10-30] MEDS: CARBIDOPA/LEVODOPA CR 50/200MG TABLET.SA PO SCH (19:33)
--- NOTE | 2017-10-30 23:01 | PDOC ---
Exam Note: Mike Note: Please also refer to the separate dictated note~for this date of service dictated separately.~Patient seen individually. Discussed the patient with Nursing staff reviewed the chart.~Reviewed interim history and current functioning. Reviewed vital signs,~Labs/ Radiology~and current medications noted below. Continue current treatment with the changes noted in the dictated addendum note Assessment: Vital Signs: Vital Signs Date Time Temp Pulse Resp B/P (MAP) Pulse Ox O2 Delivery O2 Flow Rate FiO2 10/30/17 16:53 97.6 62 16 117/62 (80) 91 10/27/17 03:50 Room Air I&O Intake and Output 10/30/17 07:00 Intake Total 760 ml Balance 760 ml Intake Oral 760 ml Current Medications: Meds: Current Medications Multi-Ingredient Ointment (Analgesic [place]) 1 cherie PRN QID PRN TP MUSCLE PAIN; Start 10/27/17 at 01:00 Clonazepam (KlonoPIN) 0.5 mg TID PO Last administered on 10/30/17 19:33; Start 10/27/17 at 09:00 Quetiapine Fumarate (SEROquel) 12.5 mg DAILY PO Last administered on 10/30/17 07:46; Start 10/27/17 at 09:00 Citalopram Hydrobromide (CeleXA) 30 mg DAILY PO Last administered on 10/27/17 10:12; Start 10/27/17 at 09:00; Stop 10/27/17 at 18:35; Status DC Melatonin 3 mg PRN QHS PRN PO INSOMNIA Last administered on 10/28/17 19:50; Start 10/27/17 at 01:15 Acetaminophen (Tylenol) 650 mg PRN Q4HRS PRN PO PAIN / TEMP Last administered on 10/30/17 16:30; Start 10/27/17 at 01:15 Carbidopa/Levodopa (Sinemet 25/100) 1 tab TIDAC PO Last administered on 16:30; Start 10/27/17 at 07:30 Carbidopa/Levodopa (Sinemet Cr) 1 tab.sa QHS PO Last administered on 10/30/17 19:33; Start 10/27/17 at 21:00 Loperamide HCl (Imodium) 2 mg PRN QID PRN PO DIARRHEA; Start 10/27/17 at 01:15 Ondansetron HCl (Zofran Odt) 4 mg PRN BID PRN PO NAUSEA/VOMITING; Start at 01:15 Al Hydroxide/Mg Hydroxide (Mylanta Plus Xs) 30 ml PRN Q4HRS PRN PO DYSPEPSIA; Start 10/27/17 at 01:15 Magnesium Hydroxide (Milk Of Magnesia) 2,400 mg PRN DAILY PRN PO CONSTIPATION; Start 10/27/17 at 01:15 Meclizine HCl (Antivert) 25 mg PRN TID PRN PO Dizziness; Start 10/27/17 at 01:15 Duloxetine HCl (Cymbalta) 30 mg DAILY PO Last administered on 10/30/17at 07:46; Start 10/28/17 at 09:00; Stop 10/31/17 at 08:59 Duloxetine HCl (Cymbalta) 60 mg DAILY PO ; Start 10/31/17 at 09:00 Amlodipine Besylate (Norvasc) 5 mg 1X ONCE PO Last administered on 10/27/17at 19 :58; Start 10/27/17 at 18:45; Stop 10/27/17 at 18:49; Status DC Amlodipine Besylate (Norvasc) 10 mg DAILY PO Last administered on 10/30/17at 07: 45; Start 10/28/17 at 09:00 Potassium Chloride (Klor-Con) 20 meq TID PO Last administered on 10/30/17 19:33 ; Start 10/27/17 at 21:00 Ropinirole HCl (Requip) 0.5 mg TID PO Last administered on 10/30/17 19:33; Start 10/27/17 at 21:00 Active Scripts Active Reported Meclizine Hcl 25 Mg Tablet 25 Mg PO PRN TID PRN Milk Of Magnesia (Magnesium Hydroxide) 2,400 Mg/10 Ml Oral.susp 2,400 Mg PO PRN DAILY PRN Maalox Advanced Suspension (Mag Hydrox/Aluminum Hyd/Simeth) 355 Ml Oral.susp 30 Ml PO PRN Q4HRS PRN Ondansetron Odt (Ondansetron) 4 Mg Tab.rapdis 4 Mg PO PRN BID PRN Imodium A-D (Loperamide HCl) 2 Mg Capsule 2 Mg PO PRN PRN Acetaminophen 325 Mg Tablet 650 Mg PO PRN Q4HRS PRN Sinemet Cr 50-200 Tablet (Carbidopa/Levodopa) 1 Each Tablet.er 1 Tab PO QHS Sinemet 25-100 Mg Tablet (Carbidopa/Levodopa) 1 Each Tablet 1 Tab PO TID AT 0 Seroquel (Quetiapine Fumarate) 25 Mg Tablet 12.5 Mg PO DAILY Melatonin 5 Mg Tablet 5 Mg PO PRN QHS PRN Escitalopram Oxalate 5 Mg Tablet 15 Mg PO DAILY Clonazepam 0.5 Mg Tablet 0.5 Mg PO TID AT 01/07/1900 I have reviewed the current psychotropics carefully including drug interactions. Risk benefit ratio favors no change other than as noted in my dictated progress note. Diagnosis: Problems: (1) Anxiety disorder (2) Major depressive disorder, recurrent episode (3) Impulse control disorder MARIAH SEAMAN MD October 30, 2017 23:01
[2017-10-31 06:24] VITALS: BP 105/54
[2017-10-31] MEDS: ACETAMINOPHEN 325 MG TABLET PO PRN (06:32)
[2017-10-31] MEDS: POTASSIUM CHLORIDE 20 MEQ TABLET.ER. PO SCH ×3 (07:55→20:00)
[2017-10-31] MEDS: CARBIDOPA/LEVODOPA 25/100MG TABLET PO SCH ×3 (07:56→16:30)
[2017-10-31] MEDS: amLODIPine BESYLATE 10 MG TABLET PO SCH (07:56)
[2017-10-31] MEDS: rOPINIRole 0.5 MG TABLET. PO SCH ×3 (07:56→20:00)
[2017-10-31] MEDS: QUEtiapine 25 MG TABLET. PO SCH (07:56)
[2017-10-31] MEDS: DULoxetine HCL 60 MG CAPSULE.DR PO SCH (07:58)
[2017-10-31] MEDS: clonazePAM 0.5 MG TABLET PO SCH ×3 (07:58→20:01)
--- NOTE | 2017-10-31 12:14 | PN ---
DATE: 10/30/2017 SUBJECTIVE: The patient has been crying since this morning. She told me she is very sorry, she tried to commit suicide a few days ago and she is very anxious and depressed. However, resting tremor of the left upper extremity and intermittent tremor of the arms and hands has increased since this morning. She denies headaches, visual disturbances, nausea, vomiting, chest pain, shortness of breath or palpitation. OBJECTIVE: GENERAL: Well-developed, well-nourished white female, not in acute distress. VITAL SIGNS: Blood pressure 129/75, respiratory rate 20, pulse is 79 and regular, temperature 97.2, oxygen saturation 96% on room air. HEENT: Normocephalic, atraumatic, otherwise unremarkable. NECK: Supple. Negative for carotid bruit, lymphadenopathy or thyromegaly. LUNGS: Clear to A and P. CARDIOVASCULAR: Regular rate and rhythm, normal S1, S2. There is no S3, S4 or murmur. ABDOMEN: Soft. Bowel sounds positive. EXTREMITIES: Negative for cyanosis, clubbing or pitting edema. NEUROLOGIC: Mental status: The patient is alert and oriented x 3. Speech is fluent. There is no language dysfunction. Memory, judgment and abstracting thinking are fair. The patient denies hallucination or delusion. She is very depressed and anxious. Cranial nerves are intact. Motor Examination: No focal muscle bulk was seen. The tone is normal. The strength is 5/5 throughout. The patient has intermittent resting tremor of the left lower extremity. The tremor subsided by walking. Sensory: Normal pinprick, light touch, vibratory and position senses. Deep tendon reflexes were symmetric and active without pathology responses. Gait: The patient uses a walker for ambulation. 1. IMPRESSION: History of Parkinson's disease with symptoms and signs of Parkinsonism including resting tremor, bradykinesia and gait disturbances. 2. Multiple psychiatric problems include major depressions, anxiety and recent history of suicide attempt. RECOMMENDATIONS: 1. Continue with current management initiated by Dr. Walters. 2. Continue with carbidopa/levodopa as scheduled along with . M Lianne KERNS MD DR: ALIYAH/giovana JOB#: [id number] / [id number]
[2017-10-31 16:38] VITALS: BP 97/59
--- NOTE | 2017-10-31 18:47 | PDOC ---
Exam Note: Mike Note: Please also refer to the separate dictated note~for this date of service dictated separately.~Patient seen individually. Discussed the patient with Nursing staff reviewed the chart.~Reviewed interim history and current functioning. Reviewed vital signs,~Labs/ Radiology~and current medications noted below. Continue current treatment with the changes noted in the dictated addendum note Assessment: Vital Signs: Vital Signs Date Time Temp Pulse Resp B/P (MAP) Pulse Ox O2 Delivery O2 Flow Rate FiO2 10/31/17 16:38 97.8 74 18 97/59 (72) 100 10/27/17 03:50 Room Air I&O Intake and Output 10/31/17 07:00 Intake Total 1100 ml Balance 1100 ml Intake Oral 1100 ml Current Medications: Meds: Current Medications Multi-Ingredient Ointment (Analgesic [place]) 1 cherie PRN QID PRN TP MUSCLE PAIN; Start 10/27/17 at 01:00 Clonazepam (KlonoPIN) 0.5 mg TID PO Last administered on 10/31/17 14:23; Start 10/27/17 at 09:00 Quetiapine Fumarate (SEROquel) 12.5 mg DAILY PO Last administered on 10/31/17at 07:56; Start 10/27/17 at 09:00 Citalopram Hydrobromide (CeleXA) 30 mg DAILY PO Last administered on 10/27/17at 10:12; Start 10/27/17 at 09:00; Stop 10/27/17 at 18:35; Status DC Melatonin 3 mg PRN QHS PRN PO INSOMNIA Last administered on 10/28/17 19:50; Start 10/27/17 at 01:15 Acetaminophen (Tylenol) 650 mg PRN Q4HRS PRN PO PAIN / TEMP Last administered on 10/31/17 06:32; Start 10/27/17 at 01:15 Carbidopa/Levodopa (Sinemet 25/100) 1 tab TIDAC PO Last administered on 16:30; Start 10/27/17 at 07:30 Carbidopa/Levodopa (Sinemet Cr) 1 tab.sa QHS PO Last administered on 10/30/17 19:33; Start 10/27/17 at 21:00 Loperamide HCl (Imodium) 2 mg PRN QID PRN PO DIARRHEA; Start 10/27/17 at 01:15 Ondansetron HCl (Zofran Odt) 4 mg PRN BID PRN PO NAUSEA/VOMITING; Start at 01:15 Al Hydroxide/Mg Hydroxide (Mylanta Plus Xs) 30 ml PRN Q4HRS PRN PO DYSPEPSIA; Start 10/27/17 at 01:15 Magnesium Hydroxide (Milk Of Magnesia) 2,400 mg PRN DAILY PRN PO CONSTIPATION; Start 10/27/17 at 01:15 Meclizine HCl (Antivert) 25 mg PRN TID PRN PO Dizziness; Start 10/27/17 at 01:15 Duloxetine HCl (Cymbalta) 30 mg DAILY PO Last administered on 10/30/17at 07:46; Start 10/28/17 at 09:00; Stop 10/31/17 at 08:59; Status DC Duloxetine HCl (Cymbalta) 60 mg DAILY PO Last administered on 10/31/17at 07:58; Start 10/31/17 at 09:00 Amlodipine Besylate (Norvasc) 5 mg 1X ONCE PO Last administered on 10/27/17at 19 :58; Start 10/27/17 at 18:45; Stop 10/27/17 at 18:49; Status DC Amlodipine Besylate (Norvasc) 10 mg DAILY PO Last administered on 10/30/17at 07: 45; Start 10/28/17 at 09:00 Potassium Chloride (Klor-Con) 20 meq TID PO Last administered on 10/31/17at 14:24 ; Start 10/27/17 at 21:00 Ropinirole HCl (Requip) 0.5 mg TID PO Last administered on 10/31/17at 14:24; Start 10/27/17 at 21:00 Active Scripts Active Reported Meclizine Hcl 25 Mg Tablet 25 Mg PO PRN TID PRN Milk Of Magnesia (Magnesium Hydroxide) 2,400 Mg/10 Ml Oral.susp 2,400 Mg PO PRN DAILY PRN Maalox Advanced Suspension (Mag Hydrox/Aluminum Hyd/Simeth) 355 Ml Oral.susp 30 Ml PO PRN Q4HRS PRN Ondansetron Odt (Ondansetron) 4 Mg Tab.rapdis 4 Mg PO PRN BID PRN Imodium A-D (Loperamide HCl) 2 Mg Capsule 2 Mg PO PRN PRN Acetaminophen 325 Mg Tablet 650 Mg PO PRN Q4HRS PRN Sinemet Cr 50-200 Tablet (Carbidopa/Levodopa) 1 Each Tablet.er 1 Tab PO QHS Sinemet 25-100 Mg Tablet (Carbidopa/Levodopa) 1 Each Tablet 1 Tab PO TID AT 0 Seroquel (Quetiapine Fumarate) 25 Mg Tablet 12.5 Mg PO DAILY Melatonin 5 Mg Tablet 5 Mg PO PRN QHS PRN Escitalopram Oxalate 5 Mg Tablet 15 Mg PO DAILY Clonazepam 0.5 Mg Tablet 0.5 Mg PO TID AT 01/07/1900 I have reviewed the current psychotropics carefully including drug interactions. Risk benefit ratio favors no change other than as noted in my dictated progress note. Diagnosis: Problems: (1) Dementia in Alzheimer's disease with depression (2) Mild cognitive impairment (3) Impulse control disorder (4) Major depressive disorder, recurrent episode (5) Anxiety disorder MARIAH SEAMAN MD October 31, 2017 18:47
[2017-10-31] MEDS: CARBIDOPA/LEVODOPA CR 50/200MG TABLET.SA PO SCH (20:00)
[2017-10-31] MEDS: MAGNESIUM HYDROXIDE 2,400 MG/30 ML ORAL.SUSP. PO PRN (23:31)
[2017-10-31] MEDS: MELATONIN 3 MG TABLET PO PRN (23:32)
[2017-11-01] MEDS: rOPINIRole 0.5 MG TABLET. PO SCH ×3 (04:50→20:36)
[2017-11-01] MEDS: DULoxetine HCL 60 MG CAPSULE.DR PO SCH (04:51)
[2017-11-01] MEDS: POTASSIUM CHLORIDE 20 MEQ TABLET.ER. PO SCH ×3 (04:52→20:36)
[2017-11-01] MEDS: CARBIDOPA/LEVODOPA 25/100MG TABLET PO SCH ×3 (04:52→16:18)
[2017-11-01] MEDS: amLODIPine BESYLATE 10 MG TABLET PO SCH (04:52)
[2017-11-01] MEDS: QUEtiapine 25 MG TABLET. PO SCH (04:53)
[2017-11-01] MEDS: clonazePAM 0.5 MG TABLET PO SCH ×3 (04:54→20:38)
[2017-11-01 06:27] VITALS: BP 142/59
[2017-11-01] MEDS: ACETAMINOPHEN 325 MG TABLET PO PRN (09:17)
[2017-11-01] MEDS: ONDANSETRON ODT 4 MG TAB.RAPDIS PO PRN (10:39)
[2017-11-01 16:31] VITALS: BP 118/76
[2017-11-01] MEDS: CARBIDOPA/LEVODOPA CR 50/200MG TABLET.SA PO SCH (20:36)
--- NOTE | 2017-11-01 20:58 | PDOC ---
Exam Note: Mike Note: Please also refer to the separate dictated note~for this date of service dictated separately.~Patient seen individually. Discussed the patient with Nursing staff reviewed the chart.~Reviewed interim history and current functioning. Reviewed vital signs,~Labs/ Radiology~and current medications noted below. Continue current treatment with the changes noted in the dictated addendum note Assessment: Vital Signs: Vital Signs Date Time Temp Pulse Resp B/P (MAP) Pulse Ox O2 Delivery O2 Flow Rate FiO2 11/01/17 16:31 97.7 68 20 118/76 (90) 100 10/27/17 03:50 Room Air I&O Intake and Output 11/01/17 07:00 Intake Total 890 ml Balance 890 ml Intake Oral 890 ml Current Medications: Meds: Current Medications Multi-Ingredient Ointment (Analgesic [place]) 1 cherie PRN QID PRN TP MUSCLE PAIN; Start 10/27/17 at 01:00 Clonazepam (KlonoPIN) 0.5 mg TID PO Last administered on 11/01/17at 14:03; Start 10/27/17 at 09:00; Stop 11/01/17 at 19:14; Status DC Quetiapine Fumarate (SEROquel) 12.5 mg DAILY PO Last administered on 11/01/17at 04:53; Start 10/27/17 at 09:00 Citalopram Hydrobromide (CeleXA) 30 mg DAILY PO Last administered on 10/27/17at 10:12; Start 10/27/17 at 09:00; Stop 10/27/17 at 18:35; Status DC Melatonin 3 mg PRN QHS PRN PO INSOMNIA Last administered on 10/31/17at 23:32; Start 10/27/17 at 01:15 Acetaminophen (Tylenol) 650 mg PRN Q4HRS PRN PO PAIN / TEMP Last administered on 11/01/17 09:17; Start 10/27/17 at 01:15 Carbidopa/Levodopa (Sinemet 25/100) 1 tab TIDAC PO Last administered on at 16:18; Start 10/27/17 at 07:30 Carbidopa/Levodopa (Sinemet Cr) 1 tab.sa QHS PO Last administered on 11/01/17at 20:36; Start 10/27/17 at 21:00 Loperamide HCl (Imodium) 2 mg PRN QID PRN PO DIARRHEA; Start 10/27/17 at 01:15 Ondansetron HCl (Zofran Odt) 4 mg PRN BID PRN PO NAUSEA/VOMITING Last administered on 11/01/17 10:39; Start 10/27/17 at 01:15 Al Hydroxide/Mg Hydroxide (Mylanta Plus Xs) 30 ml PRN Q4HRS PRN PO DYSPEPSIA; Start 10/27/17 at 01:15 Magnesium Hydroxide (Milk Of Magnesia) 2,400 mg PRN DAILY PRN PO CONSTIPATION Last administered on 10/31/17 23:31; Start 10/27/17 at 01:15 Meclizine HCl (Antivert) 25 mg PRN TID PRN PO Dizziness; Start 10/27/17 at 01:15 Duloxetine HCl (Cymbalta) 30 mg DAILY PO Last administered on 10/30/17 07:46; Start 10/28/17 at 09:00; Stop 10/31/17 at 08:59; Status DC Duloxetine HCl (Cymbalta) 60 mg DAILY PO Last administered on 11/01/17 04:51; Start 10/31/17 at 09:00 Amlodipine Besylate (Norvasc) 5 mg 1X ONCE PO Last administered on 10/27/17 19 :58; Start 10/27/17 at 18:45; Stop 10/27/17 at 18:49; Status DC Amlodipine Besylate (Norvasc) 10 mg DAILY PO Last administered on 11/01/17 04: 52; Start 10/28/17 at 09:00 Potassium Chloride (Klor-Con) 20 meq TID PO Last administered on 11/01/17 20:36 ; Start 10/27/17 at 21:00 Ropinirole HCl (Requip) 0.5 mg TID PO Last administered on 11/01/17 20:36; Start 10/27/17 at 21:00 Clonazepam (KlonoPIN) 0.5 mg BID92 PO ; Start 11/02/17 at 09:00 Clonazepam (KlonoPIN) 0.25 mg QHS PO Last administered on 11/01/17 20:38; Start 11/01/17 at 21:00 Active Scripts Active Reported Meclizine Hcl 25 Mg Tablet 25 Mg PO PRN TID PRN Milk Of Magnesia (Magnesium Hydroxide) 2,400 Mg/10 Ml Oral.susp 2,400 Mg PO PRN DAILY PRN Maalox Advanced Suspension (Mag Hydrox/Aluminum Hyd/Simeth) 355 Ml Oral.susp 30 Ml PO PRN Q4HRS PRN Ondansetron Odt (Ondansetron) 4 Mg Tab.rapdis 4 Mg PO PRN BID PRN Imodium A-D (Loperamide HCl) 2 Mg Capsule 2 Mg PO PRN PRN Acetaminophen 325 Mg Tablet 650 Mg PO PRN Q4HRS PRN Sinemet Cr 50-200 Tablet (Carbidopa/Levodopa) 1 Each Tablet.er 1 Tab PO QHS Sinemet 25-100 Mg Tablet (Carbidopa/Levodopa) 1 Each Tablet 1 Tab PO TID AT 0 Seroquel (Quetiapine Fumarate) 25 Mg Tablet 12.5 Mg PO DAILY Melatonin 5 Mg Tablet 5 Mg PO PRN QHS PRN Escitalopram Oxalate 5 Mg Tablet 15 Mg PO DAILY Clonazepam 0.5 Mg Tablet 0.5 Mg PO TID AT 01/07/1900 I have reviewed the current psychotropics carefully including drug interactions. Risk benefit ratio favors no change other than as noted in my dictated progress note. Diagnosis: Problems: (1) Mild cognitive impairment (2) Dementia in Alzheimer's disease with depression (3) Anxiety disorder (4) Major depressive disorder, recurrent episode (5) Impulse control disorder MARIAH SEAMAN MD November 01, 2017 20:58
--- NOTE | 2017-11-02 04:16 | PN ---
DATE: 10/29/2017 PSYCHIATRIC PROGRESS NOTE This late entry 10/29/2017 covers elements not covered in my initial note 10/29/2017. SUBJECTIVE: I met with the patient in the evening. The patient slept 5-1/2 hours, somewhat anxious, somatic, short-term memory has impairment. Dr. Crowell saw her regarding her Parkinson's consequent to her tremors, will defer this to Dr. Crowell. REVIEW OF SYSTEMS: Positive for the tremors, anxiety. No CV, , pulmonary, eye system symptoms on review. MENTAL STATUS EXAM: Oriented to herself and situation. Speech is coherent, abstraction fair, computation impaired, language function intact. Mood and affect remain somewhat anxious. LABORATORIES: Reviewed. IMPRESSION: Unchanged from initial note. PLAN: Continue current psychotropics. MAN Yeni SEAMAN MD DR: SONALI/giovana JOB#: [id number] / [id number]
--- NOTE | 2017-11-02 04:31 | PN ---
DATE: 10/31/2017 PSYCHIATRIC PROGRESS NOTE This late entry 10/31/2017 covers elements not covered in my initial note 10/31/2017. SUBJECTIVE: I met with the patient in the evening. The patient's family visited her during the day and nursing staff reported family were pleased since they saw the patient smiling. This was evident even as I met with her individually in the evening. She still has the tremors. REVIEW OF SYSTEMS: No CV, , pulmonary, eye system symptoms on review. MENTAL STATUS EXAM: Oriented to herself and situation. Speech is coherent, abstraction fair, computation impaired, language function intact. Short-term memory is impaired. Mood and affect is still depressed, anxious. No suicidal ideation. IMPRESSION: Unchanged from initial note. PLAN: Continue current psychotropics with the increase of Cymbalta to 60 mg a day. MAN Yeni SEAMAN MD DR: SONALI/giovana JOB#: [id number] / [id number]
--- NOTE | 2017-11-02 04:48 | PN ---
DATE: 10/30/2017 PSYCHIATRIC PROGRESS NOTE This late entry 10/30/2017 covers elements not covered in my initial note 10/30/2017. SUBJECTIVE: I met with the patient in the evening. The patient was tearful in the morning regarding tremors, but doing better after she saw Dr. Crowell. She did not come out for supper, others compliant with her medications, still depressed. REVIEW OF SYSTEMS: No CV, , pulmonary, eye, ENT system symptoms on review. MENTAL STATUS EXAM: Oriented to herself and situation. Speech moderate latency, low in volume, coherent, abstraction fair, computation impaired, language function intact. Short term memory is impaired. No suicidal ideation. LABORATORIES: Reviewed. IMPRESSION: Unchanged from initial note. PLAN: Continue current psychotropics. Cymbalta is being increased. MAN Yeni SEAMAN MD DR: SONALI/giovana JOB#: [id number] / [id number]
[2017-11-02 06:19] VITALS: BP 112/67
[2017-11-02] MEDS: CARBIDOPA/LEVODOPA 25/100MG TABLET PO SCH ×3 (07:38→16:36)
[2017-11-02] MEDS: amLODIPine BESYLATE 10 MG TABLET PO SCH (07:39)
[2017-11-02] MEDS: POTASSIUM CHLORIDE 20 MEQ TABLET.ER. PO SCH ×3 (07:39→19:47)
[2017-11-02] MEDS: DULoxetine HCL 60 MG CAPSULE.DR PO SCH (07:39)
[2017-11-02] MEDS: QUEtiapine 25 MG TABLET. PO SCH (07:40)
[2017-11-02] MEDS: rOPINIRole 0.5 MG TABLET. PO SCH ×3 (07:40→19:48)
[2017-11-02] MEDS: clonazePAM 0.5 MG TABLET PO SCH ×3 (07:42→19:49)
[2017-11-02] MEDS: ACETAMINOPHEN 325 MG TABLET PO PRN (10:58)
[2017-11-02 11:11] LABS: BILIRUBIN,URINE NEG (NEG); CLARITY,URINE CLEAR; COLOR,URINE YELLOW; GLUCOSE,URINE NEG (NEG); NITRITE,URINE NEG (NEG); UROBILINOGEN,URINE 0.2 mg/dL (0.2 mg/dL)
[2017-11-02 11:12] LABS: BACTERIA,URINE FEW /HPF (0-FEW); SQUAMOUS EPITHELIAL CELL,UR OCC /LPF
[2017-11-02] MEDS: ONDANSETRON ODT 4 MG TAB.RAPDIS PO PRN (12:42)
[2017-11-02 16:14] VITALS: BP 100/55
[2017-11-02] MEDS: CARBIDOPA/LEVODOPA CR 50/200MG TABLET.SA PO SCH (19:48)
[2017-11-02] MEDS: MELATONIN 3 MG TABLET PO PRN (20:30)
[2017-11-02] MEDS: MAGNESIUM HYDROXIDE 2,400 MG/30 ML ORAL.SUSP. PO PRN (20:30)
--- NOTE | 2017-11-02 20:52 | PDOC ---
Exam Note: Mike Note: Please also refer to the separate dictated note~for this date of service dictated separately.~Patient seen individually. Discussed the patient with Nursing staff reviewed the chart.~Reviewed interim history and current functioning. Reviewed vital signs,~Labs/ Radiology~and current medications noted below. Continue current treatment with the changes noted in the dictated addendum note Assessment: Vital Signs: Vital Signs Date Time Temp Pulse Resp B/P (MAP) Pulse Ox O2 Delivery O2 Flow Rate FiO2 11/02/17 16:14 98.0 77 18 100/55 (70) 100 I&O Intake and Output 11/02/17 07:00 Intake Total 600 ml Balance 600 ml Intake Oral 600 ml Labs: Laboratory Tests Test 11/02/17 10:25 Urine Collection Type Unknown Urine Color Yellow Urine Clarity Clear Urine pH 5.5 Urine Specific [place] 1.020 Urine Protein 30 mg/dl (NEG-TRACE) Urine Glucose (UA) Neg mg/dL (NEG) Urine Ketones (Stick) 15 mg/dL (NEG) Urine Blood Neg (NEG) Urine Nitrite Neg (NEG) Urine Bilirubin Neg (NEG) Urine Urobilinogen Dipstick 0.2 mg/dL (0.2 mg/dL) Urine Leukocyte Esterase Trace (NEG) Urine RBC 1-2 /HPF (0-2) Urine WBC 1-4 /HPF (0-4) Urine Squamous Epithelial Cells Occ /LPF Urine Bacteria Few /HPF (0-FEW) Urine Mucus Marked /LPF Current Medications: Meds: Current Medications Multi-Ingredient Ointment (Analgesic [place]) 1 cherie PRN QID PRN TP MUSCLE PAIN; Start 10/27/17 at 01:00 Clonazepam (KlonoPIN) 0.5 mg TID PO Last administered on 11/01/17at 14:03; Start 10/27/17 at 09:00; Stop 11/01/17 at 19:14; Status DC Quetiapine Fumarate (SEROquel) 12.5 mg DAILY PO Last administered on 11/02/17at 07:40; Start 10/27/17 at 09:00 Citalopram Hydrobromide (CeleXA) 30 mg DAILY PO Last administered on 10/27/17at 10:12; Start 10/27/17 at 09:00; Stop 10/27/17 at 18:35; Status DC Melatonin 3 mg PRN QHS PRN PO INSOMNIA Last administered on 11/02/17 20:30; Start 10/27/17 at 01:15 Acetaminophen (Tylenol) 650 mg PRN Q4HRS PRN PO PAIN / TEMP Last administered on 11/02/17 10:58; Start 10/27/17 at 01:15 Carbidopa/Levodopa (Sinemet 25/100) 1 tab TIDAC PO Last administered on 16:36; Start 10/27/17 at 07:30 Carbidopa/Levodopa (Sinemet Cr) 1 tab.sa QHS PO Last administered on 11/02/17 19:48; Start 10/27/17 at 21:00 Loperamide HCl (Imodium) 2 mg PRN QID PRN PO DIARRHEA; Start 10/27/17 at 01:15 Ondansetron HCl (Zofran Odt) 4 mg PRN BID PRN PO NAUSEA/VOMITING Last administered on 11/02/17 12:42; Start 10/27/17 at 01:15 Al Hydroxide/Mg Hydroxide (Mylanta Plus Xs) 30 ml PRN Q4HRS PRN PO DYSPEPSIA; Start 10/27/17 at 01:15 Magnesium Hydroxide (Milk Of Magnesia) 2,400 mg PRN DAILY PRN PO CONSTIPATION Last administered on 11/02/17 20:30; Start 10/27/17 at 01:15 Meclizine HCl (Antivert) 25 mg PRN TID PRN PO Dizziness; Start 10/27/17 at 01:15 Duloxetine HCl (Cymbalta) 30 mg DAILY PO Last administered on 10/30/17 07:46; Start 10/28/17 at 09:00; Stop 10/31/17 at 08:59; Status DC Duloxetine HCl (Cymbalta) 60 mg DAILY PO Last administered on 11/02/17 07:39; Start 10/31/17 at 09:00 Amlodipine Besylate (Norvasc) 5 mg 1X ONCE PO Last administered on 10/27/17 19 :58; Start 10/27/17 at 18:45; Stop 10/27/17 at 18:49; Status DC Amlodipine Besylate (Norvasc) 10 mg DAILY PO Last administered on 11/02/17 07: 39; Start 10/28/17 at 09:00 Potassium Chloride (Klor-Con) 20 meq TID PO Last administered on 11/02/17 19:47 ; Start 10/27/17 at 21:00 Ropinirole HCl (Requip) 0.5 mg TID PO Last administered on 11/02/17 19:48; Start 10/27/17 at 21:00 Clonazepam (KlonoPIN) 0.5 mg BID92 PO Last administered on 11/02/17at 13:21; Start 11/02/17 at 09:00; Stop 11/02/17 at 18:52; Status DC Clonazepam (KlonoPIN) 0.25 mg QHS PO Last administered on 11/02/17 19:49; Start 11/01/17 at 21:00 Clonazepam (KlonoPIN) 0.5 mg DAILY@1400 PO ; Start 11/03/17 at 14:00; Stop at 14:00; Status DC Clonazepam (KlonoPIN) 0.25 mg DAILY PO ; Start 11/03/17 at 09:00; Stop 11/04/17 at 09:00 Clonazepam (KlonoPIN) 0.25 mg DAILY PO ; Start 11/04/17 at 09:00; Status UNV Clonazepam (KlonoPIN) 0.5 mg BID92 PO ; Start 11/03/17 at 09:00; Status UNV Active Scripts Active Reported Meclizine Hcl 25 Mg Tablet 25 Mg PO PRN TID PRN Milk Of Magnesia (Magnesium Hydroxide) 2,400 Mg/10 Ml Oral.susp 2,400 Mg PO PRN DAILY PRN Maalox Advanced Suspension (Mag Hydrox/Aluminum Hyd/Simeth) 355 Ml Oral.susp 30 Ml PO PRN Q4HRS PRN Ondansetron Odt (Ondansetron) 4 Mg Tab.rapdis 4 Mg PO PRN BID PRN Imodium A-D (Loperamide HCl) 2 Mg Capsule 2 Mg PO PRN PRN Acetaminophen 325 Mg Tablet 650 Mg PO PRN Q4HRS PRN Sinemet Cr 50-200 Tablet (Carbidopa/Levodopa) 1 Each Tablet.er 1 Tab PO QHS Sinemet 25-100 Mg Tablet (Carbidopa/Levodopa) 1 Each Tablet 1 Tab PO TID AT 07/ 05/1700 Seroquel (Quetiapine Fumarate) 25 Mg Tablet 12.5 Mg PO DAILY Melatonin 5 Mg Tablet 5 Mg PO PRN QHS PRN Escitalopram Oxalate 5 Mg Tablet 15 Mg PO DAILY Clonazepam 0.5 Mg Tablet 0.5 Mg PO TID AT 01/07/1900 I have reviewed the current psychotropics carefully including drug interactions. Risk benefit ratio favors no change other than as noted in my dictated progress note. Diagnosis: Problems: (1) Mild cognitive impairment (2) Dementia in Alzheimer's disease with depression (3) Anxiety disorder (4) Major depressive disorder, recurrent episode (5) Impulse control disorder MARIAH SEAMAN MD November 02, 2017 20:52
--- NOTE | 2017-11-02 22:46 | PN ---
DATE: 11/01/2017 PSYCHIATRIC PROGRESS NOTE This is a late entry for 11/01/2017, covers elements not covered in my initial note of 11/01/2017. SUBJECTIVE: I met with the patient the evening of 11/01/2017. The patient slept 6-1/2 hours, increasingly disorganized, more forgetful on 11/01/2017, questioning the nursing staff if she was going to be spending the night here or going home. REVIEW OF SYSTEMS: No CV, , pulmonary, eye system symptoms on review. MENTAL STATUS EXAM: Oriented to herself and situation. Speech moderate latency, often responses monosyllabic. Abstraction fair, computation impaired, language function intact, attention span short. Mood and affect somewhat anxious, labile. LABORATORY DATA: Reviewed. IMPRESSION: Major depressive disorder in partial remission; major neurocognitive disorder, early Alzheimer, vascular with depression. PLAN: The patient is on Klonopin 0.5 mg 3 times a day. We will reduce the evening dosage to 0.25 mg on a trial basis. Continue rest unchanged including Cymbalta, Seroquel, and melatonin. MAN Yeni SEAMAN MD DR: SONALI/giovana JOB#: [id number] / [id number]
[2017-11-03 05:59] VITALS: BP 108/66
[2017-11-03] MEDS: CARBIDOPA/LEVODOPA 25/100MG TABLET PO SCH ×3 (07:36→17:26)
[2017-11-03] MEDS: DULoxetine HCL 60 MG CAPSULE.DR PO SCH (08:45)
[2017-11-03] MEDS: QUEtiapine 25 MG TABLET. PO SCH ×2 (08:45→10:59)
[2017-11-03] MEDS: POTASSIUM CHLORIDE 20 MEQ TABLET.ER. PO SCH ×3 (08:46→19:31)
[2017-11-03] MEDS: rOPINIRole 0.5 MG TABLET. PO SCH ×3 (08:46→19:29)
[2017-11-03] MEDS: amLODIPine BESYLATE 10 MG TABLET PO SCH (08:47)
[2017-11-03] MEDS: clonazePAM 0.5 MG TABLET PO SCH ×3 (08:49→19:31)
[2017-11-03] MEDS ORDERED: clonazePAM 0.5 MG TABLET PO SCH ×3 (09:00→14:00)
[2017-11-03] MEDS: ACETAMINOPHEN 325 MG TABLET PO PRN ×2 (09:57→19:33)
[2017-11-03 18:17] VITALS: BP 101/50
[2017-11-03] MEDS: CARBIDOPA/LEVODOPA CR 50/200MG TABLET.SA PO SCH (19:29)
--- NOTE | 2017-11-03 22:17 | PDOC ---
Exam Note: Mike Note: Please also refer to the separate dictated note~for this date of service dictated separately.~Patient seen individually. Discussed the patient with Nursing staff reviewed the chart.~Reviewed interim history and current functioning. Reviewed vital signs,~Labs/ Radiology~and current medications noted below. Continue current treatment with the changes noted in the dictated addendum note Assessment: Vital Signs: Vital Signs Date Time Temp Pulse Resp B/P (MAP) Pulse Ox O2 Delivery O2 Flow Rate FiO2 11/03/17 18:17 97.2 64 16 101/50 (67) 100 I&O Intake and Output 11/03/17 07:00 Intake Total 1080 ml Balance 1080 ml Intake Oral 1080 ml Current Medications: Meds: Current Medications Multi-Ingredient Ointment (Analgesic [place]) 1 cherie PRN QID PRN TP MUSCLE PAIN; Start 10/27/17 at 01:00 Clonazepam (KlonoPIN) 0.5 mg TID PO Last administered on 11/01/17at 14:03; Start 10/27/17 at 09:00; Stop 11/01/17 at 19:14; Status DC Quetiapine Fumarate (SEROquel) 12.5 mg DAILY PO Last administered on 11/03/17at 10:59; Start 10/27/17 at 09:00 Citalopram Hydrobromide (CeleXA) 30 mg DAILY PO Last administered on 10/27/17at 10:12; Start 10/27/17 at 09:00; Stop 10/27/17 at 18:35; Status DC Melatonin 3 mg PRN QHS PRN PO INSOMNIA Last administered on 11/02/17at 20:30; Start 10/27/17 at 01:15 Acetaminophen (Tylenol) 650 mg PRN Q4HRS PRN PO PAIN / TEMP Last administered on 11/03/17 19:33; Start 10/27/17 at 01:15 Carbidopa/Levodopa (Sinemet 25/100) 1 tab TIDAC PO Last administered on 17:26; Start 10/27/17 at 07:30 Carbidopa/Levodopa (Sinemet Cr) 1 tab.sa QHS PO Last administered on 11/03/17 19:29; Start 10/27/17 at 21:00 Loperamide HCl (Imodium) 2 mg PRN QID PRN PO DIARRHEA; Start 10/27/17 at 01:15 Ondansetron HCl (Zofran Odt) 4 mg PRN BID PRN PO NAUSEA/VOMITING Last administered on 11/02/17 12:42; Start 10/27/17 at 01:15 Al Hydroxide/Mg Hydroxide (Mylanta Plus Xs) 30 ml PRN Q4HRS PRN PO DYSPEPSIA; Start 10/27/17 at 01:15 Magnesium Hydroxide (Milk Of Magnesia) 2,400 mg PRN DAILY PRN PO CONSTIPATION Last administered on 11/02/17 20:30; Start 10/27/17 at 01:15 Meclizine HCl (Antivert) 25 mg PRN TID PRN PO Dizziness; Start 10/27/17 at 01:15 Duloxetine HCl (Cymbalta) 30 mg DAILY PO Last administered on 10/30/17 07:46; Start 10/28/17 at 09:00; Stop 10/31/17 at 08:59; Status DC Duloxetine HCl (Cymbalta) 60 mg DAILY PO Last administered on 11/03/17 08:45; Start 10/31/17 at 09:00 Amlodipine Besylate (Norvasc) 5 mg 1X ONCE PO Last administered on 10/27/17 19 :58; Start 10/27/17 at 18:45; Stop 10/27/17 at 18:49; Status DC Amlodipine Besylate (Norvasc) 10 mg DAILY PO Last administered on 11/03/17 08: 47; Start 10/28/17 at 09:00 Potassium Chloride (Klor-Con) 20 meq TID PO Last administered on 11/03/17 19:31 ; Start 10/27/17 at 21:00 Ropinirole HCl (Requip) 0.5 mg TID PO Last administered on 11/03/17 19:29; Start 10/27/17 at 21:00 Clonazepam (KlonoPIN) 0.5 mg BID92 PO Last administered on 11/02/17 13:21; Start 11/02/17 at 09:00; Stop 11/02/17 at 18:52; Status DC Clonazepam (KlonoPIN) 0.25 mg QHS PO Last administered on 11/03/17 19:31; Start 11/01/17 at 21:00 Clonazepam (KlonoPIN) 0.5 mg DAILY@1400 PO ; Start 11/03/17 at 14:00; Stop at 14:00; Status DC Clonazepam (KlonoPIN) 0.25 mg DAILY PO ; Start 11/03/17 at 09:00; Stop 11/03/17 at 09:00; Status DC Clonazepam (KlonoPIN) 0.25 mg DAILY PO ; Start 11/04/17 at 09:00 Clonazepam (KlonoPIN) 0.5 mg BID92 PO Last administered on 11/03/17at 12:26; Start 11/03/17 at 09:00; Stop 11/04/17 at 08:59 Clonazepam (KlonoPIN) 0.5 mg DAILY@1400 PO ; Start 11/03/17 at 14:00; Stop at 14:00; Status DC Quetiapine Fumarate (SEROquel) 12.5 mg PRN BID PRN PO ANXIETY/MOOD STABILITY; Start 11/03/17 at 10:15 Clonazepam (KlonoPIN) 0.5 mg DAILY@1400 PO ; Start 11/04/17 at 14:00 Active Scripts Active Reported Meclizine Hcl 25 Mg Tablet 25 Mg PO PRN TID PRN Milk Of Magnesia (Magnesium Hydroxide) 2,400 Mg/10 Ml Oral.susp 2,400 Mg PO PRN DAILY PRN Maalox Advanced Suspension (Mag Hydrox/Aluminum Hyd/Simeth) 355 Ml Oral.susp 30 Ml PO PRN Q4HRS PRN Ondansetron Odt (Ondansetron) 4 Mg Tab.rapdis 4 Mg PO PRN BID PRN Imodium A-D (Loperamide HCl) 2 Mg Capsule 2 Mg PO PRN PRN Acetaminophen 325 Mg Tablet 650 Mg PO PRN Q4HRS PRN Sinemet Cr 50-200 Tablet (Carbidopa/Levodopa) 1 Each Tablet.er 1 Tab PO QHS Sinemet 25-100 Mg Tablet (Carbidopa/Levodopa) 1 Each Tablet 1 Tab PO TID AT 05/1700 Seroquel (Quetiapine Fumarate) 25 Mg Tablet 12.5 Mg PO DAILY Melatonin 5 Mg Tablet 5 Mg PO PRN QHS PRN Escitalopram Oxalate 5 Mg Tablet 15 Mg PO DAILY Clonazepam 0.5 Mg Tablet 0.5 Mg PO TID AT 01/07/1900 I have reviewed the current psychotropics carefully including drug interactions. Risk benefit ratio favors no change other than as noted in my dictated progress note. Diagnosis: Problems: (1) Mild cognitive impairment (2) Dementia in Alzheimer's disease with depression (3) Anxiety disorder (4) Major depressive disorder, recurrent episode (5) Impulse control disorder MARIAH SEAMAN MD November 03, 2017 22:17
--- NOTE | 2017-11-04 02:22 | PN ---
DATE: 11/02/2017 PSYCHIATRIC PROGRESS NOTE This is a late entry 11/02/2017, covers elements not covered in my initial note of 11/02/2017. I met with the patient the evening of 11/02/2017. SUBJECTIVE: The patient slept 8-1/4 hours and was awake at night, slept just for about an hour, was walking for an hour, confused, believing she was here to help other patients. Information from daughter indicated she was diagnosed with dementia in 05/2017. UA has reflex to culture. REVIEW OF SYSTEMS: No CV, , pulmonary, eye, ENT system symptoms on review. MENTAL STATUS EXAM: Oriented to herself and situation. Speech moderate latency, often responses monosyllabic, coherent. Abstraction fair, computation impaired, language function intact. Mood and affect remain withdrawn, somewhat depressed, which she minimizes. No suicidal ideation. LABORATORY DATA: Reviewed. IMPRESSION: Major depressive disorder with a history of suicide attempt, major neurocognitive disorder, early Alzheimer vascular and possibly secondary to Parkinson's with depression. PLAN: Continue current psychotropics including Seroquel, Cymbalta, Klonopin is 0.5 mg b.i.d. and 0.25 mg at bedtime and we will reduce the morning 9:00 a.m. Klonopin down to 0.25 mg as a gradual dose reduction taper. Also discussed the patient with Dr. Crowell, who has seen her for a Neurology consult with social service staff to review background history from the family. MARIAH SEAMAN MD DR: SONALI/giovana JOB#: [id number] / [id number]
[2017-11-04] MEDS: QUEtiapine 25 MG TABLET. PO PRN (03:12)
[2017-11-04] MEDS: CARBIDOPA/LEVODOPA 25/100MG TABLET PO SCH ×3 (07:30→17:24)
[2017-11-04] MEDS: rOPINIRole 0.5 MG TABLET. PO SCH ×3 (09:00→20:28)
[2017-11-04] MEDS: POTASSIUM CHLORIDE 20 MEQ TABLET.ER. PO SCH ×3 (09:00→20:28)
[2017-11-04] MEDS: DULoxetine HCL 60 MG CAPSULE.DR PO SCH (09:00)
[2017-11-04] MEDS: amLODIPine BESYLATE 10 MG TABLET PO SCH (09:00)
[2017-11-04] MEDS: clonazePAM 0.5 MG TABLET PO SCH ×3 (09:00→20:28)
[2017-11-04] MEDS: ACETAMINOPHEN 325 MG TABLET PO PRN (12:46)
[2017-11-04] MEDS: MAGNESIUM HYDROXIDE 2,400 MG/30 ML ORAL.SUSP. PO PRN (17:24)
[2017-11-04 18:17] VITALS: BP 131/63
[2017-11-04] MEDS: CARBIDOPA/LEVODOPA CR 50/200MG TABLET.SA PO SCH (20:28)
--- NOTE | 2017-11-04 20:49 | PDOC ---
Exam Note: Mike Note: Please also refer to the separate dictated note~for this date of service dictated separately.~Patient seen individually. Discussed the patient with Nursing staff reviewed the chart.~Reviewed interim history and current functioning. Reviewed vital signs,~Labs/ Radiology~and current medications noted below. Continue current treatment with the changes noted in the dictated addendum note Assessment: Vital Signs: Vital Signs Date Time Temp Pulse Resp B/P (MAP) Pulse Ox O2 Delivery O2 Flow Rate FiO2 11/04/17 18:17 98.0 63 16 131/63 (85) 99 I&O Intake and Output 11/04/17 07:00 Intake Total 720 ml Balance 720 ml Intake Oral 720 ml # Voids 1 Current Medications: Meds: Current Medications Multi-Ingredient Ointment (Analgesic [place]) 1 cherie PRN QID PRN TP MUSCLE PAIN; Start 10/27/17 at 01:00 Clonazepam (KlonoPIN) 0.5 mg TID PO Last administered on 11/01/17at 14:03; Start 10/27/17 at 09:00; Stop 11/01/17 at 19:14; Status DC Quetiapine Fumarate (SEROquel) 12.5 mg DAILY PO Last administered on 11/03/17at 10:59; Start 10/27/17 at 09:00 Citalopram Hydrobromide (CeleXA) 30 mg DAILY PO Last administered on 10/27/17at 10:12; Start 10/27/17 at 09:00; Stop 10/27/17 at 18:35; Status DC Melatonin 3 mg PRN QHS PRN PO INSOMNIA Last administered on 11/02/17at 20:30; Start 10/27/17 at 01:15 Acetaminophen (Tylenol) 650 mg PRN Q4HRS PRN PO PAIN / TEMP Last administered on 11/04/17at 12:46; Start 10/27/17 at 01:15 Carbidopa/Levodopa (Sinemet 25/100) 1 tab TIDAC PO Last administered on at 17:24; Start 10/27/17 at 07:30 Carbidopa/Levodopa (Sinemet Cr) 1 tab.sa QHS PO Last administered on 11/04/17at 20:28; Start 10/27/17 at 21:00 Loperamide HCl (Imodium) 2 mg PRN QID PRN PO DIARRHEA; Start 10/27/17 at 01:15 Ondansetron HCl (Zofran Odt) 4 mg PRN BID PRN PO NAUSEA/VOMITING Last administered on 11/02/17 12:42; Start 10/27/17 at 01:15 Al Hydroxide/Mg Hydroxide (Mylanta Plus Xs) 30 ml PRN Q4HRS PRN PO DYSPEPSIA; Start 10/27/17 at 01:15 Magnesium Hydroxide (Milk Of Magnesia) 2,400 mg PRN DAILY PRN PO CONSTIPATION Last administered on 11/04/17 17:24; Start 10/27/17 at 01:15 Meclizine HCl (Antivert) 25 mg PRN TID PRN PO Dizziness; Start 10/27/17 at 01:15 Duloxetine HCl (Cymbalta) 30 mg DAILY PO Last administered on 10/30/17 07:46; Start 10/28/17 at 09:00; Stop 10/31/17 at 08:59; Status DC Duloxetine HCl (Cymbalta) 60 mg DAILY PO Last administered on 11/03/17 08:45; Start 10/31/17 at 09:00 Amlodipine Besylate (Norvasc) 5 mg 1X ONCE PO Last administered on 10/27/17 19 :58; Start 10/27/17 at 18:45; Stop 10/27/17 at 18:49; Status DC Amlodipine Besylate (Norvasc) 10 mg DAILY PO Last administered on 11/03/17 08: 47; Start 10/28/17 at 09:00 Potassium Chloride (Klor-Con) 20 meq TID PO Last administered on 11/04/17 20: 28; Start 10/27/17 at 21:00 Ropinirole HCl (Requip) 0.5 mg TID PO Last administered on 11/04/17 20:28; Start 10/27/17 at 21:00 Clonazepam (KlonoPIN) 0.5 mg BID92 PO Last administered on 11/02/17 13:21; Start 11/02/17 at 09:00; Stop 11/02/17 at 18:52; Status DC Clonazepam (KlonoPIN) 0.25 mg QHS PO Last administered on 11/04/17 20:28; Start 11/01/17 at 21:00 Clonazepam (KlonoPIN) 0.5 mg DAILY@1400 PO ; Start 11/03/17 at 14:00; Stop at 14:00; Status DC Clonazepam (KlonoPIN) 0.25 mg DAILY PO ; Start 11/03/17 at 09:00; Stop 11/03/17 at 09:00; Status DC Clonazepam (KlonoPIN) 0.25 mg DAILY PO ; Start 11/04/17 at 09:00 Clonazepam (KlonoPIN) 0.5 mg BID92 PO Last administered on 11/03/17at 12:26; Start 11/03/17 at 09:00; Stop 11/04/17 at 08:59; Status DC Clonazepam (KlonoPIN) 0.5 mg DAILY@1400 PO ; Start 11/03/17 at 14:00; Stop at 14:00; Status DC Quetiapine Fumarate (SEROquel) 12.5 mg PRN BID PRN PO ANXIETY/MOOD STABILITY Last administered on 11/04/17at 03:12; Start 11/03/17 at 10:15 Clonazepam (KlonoPIN) 0.5 mg DAILY@1400 PO Last administered on 11/04/17at 14:06 ; Start 11/04/17 at 14:00 Active Scripts Active Reported Meclizine Hcl 25 Mg Tablet 25 Mg PO PRN TID PRN Milk Of Magnesia (Magnesium Hydroxide) 2,400 Mg/10 Ml Oral.susp 2,400 Mg PO PRN DAILY PRN Maalox Advanced Suspension (Mag Hydrox/Aluminum Hyd/Simeth) 355 Ml Oral.susp 30 Ml PO PRN Q4HRS PRN Ondansetron Odt (Ondansetron) 4 Mg Tab.rapdis 4 Mg PO PRN BID PRN Imodium A-D (Loperamide HCl) 2 Mg Capsule 2 Mg PO PRN PRN Acetaminophen 325 Mg Tablet 650 Mg PO PRN Q4HRS PRN Sinemet Cr 50-200 Tablet (Carbidopa/Levodopa) 1 Each Tablet.er 1 Tab PO QHS Sinemet 25-100 Mg Tablet (Carbidopa/Levodopa) 1 Each Tablet 1 Tab PO TID AT 05/1700 Seroquel (Quetiapine Fumarate) 25 Mg Tablet 12.5 Mg PO DAILY Melatonin 5 Mg Tablet 5 Mg PO PRN QHS PRN Escitalopram Oxalate 5 Mg Tablet 15 Mg PO DAILY Clonazepam 0.5 Mg Tablet 0.5 Mg PO TID AT 01/07/1900 I have reviewed the current psychotropics carefully including drug interactions. Risk benefit ratio favors no change other than as noted in my dictated progress note. Diagnosis: Problems: (1) Mild cognitive impairment (2) Dementia in Alzheimer's disease with depression (3) Anxiety disorder (4) Major depressive disorder, recurrent episode (5) Impulse control disorder MARIAH SEAMAN MD November 04, 2017 20:49
[2017-11-05] MEDS: rOPINIRole 0.5 MG TABLET. PO SCH ×3 (05:25→19:47)
[2017-11-05 05:30] VITALS: BP 140/90
[2017-11-05] MEDS: CARBIDOPA/LEVODOPA 25/100MG TABLET PO SCH ×3 (07:49→16:42)
[2017-11-05] MEDS: ACETAMINOPHEN 325 MG TABLET PO PRN ×2 (07:51→14:43)
[2017-11-05] MEDS: QUEtiapine 25 MG TABLET. PO PRN (07:57)
[2017-11-05] MEDS ORDERED: BISACODYL 10 MG SUPP.RECT PR PRN (08:00)
[2017-11-05] MEDS: DULoxetine HCL 60 MG CAPSULE.DR PO SCH (09:22)
[2017-11-05] MEDS: POTASSIUM CHLORIDE 20 MEQ TABLET.ER. PO SCH ×3 (09:22→19:47)
[2017-11-05] MEDS: QUEtiapine 25 MG TABLET. PO SCH (09:22)
[2017-11-05] MEDS: amLODIPine BESYLATE 10 MG TABLET PO SCH (09:22)
[2017-11-05] MEDS: clonazePAM 0.5 MG TABLET PO SCH ×3 (09:24→19:49)
[2017-11-05 16:39] VITALS: BP 136/80
[2017-11-05] MEDS: CARBIDOPA/LEVODOPA CR 50/200MG TABLET.SA PO SCH (19:47)
--- NOTE | 2017-11-05 20:48 | PDOC ---
Exam Note: Mike Note: Please also refer to the separate dictated note~for this date of service dictated separately.~Patient seen individually. Discussed the patient with Nursing staff reviewed the chart.~Reviewed interim history and current functioning. Reviewed vital signs,~Labs/ Radiology~and current medications noted below. Continue current treatment with the changes noted in the dictated addendum note Assessment: Vital Signs: Vital Signs Date Time Temp Pulse Resp B/P (MAP) Pulse Ox O2 Delivery O2 Flow Rate FiO2 11/05/17 16:39 96.3 85 20 136/80 (98) 100 I&O Intake and Output 11/05/17 07:00 Intake Total 240 ml Balance 240 ml Intake Oral 240 ml Current Medications: Meds: Current Medications Multi-Ingredient Ointment (Analgesic [place]) 1 cherie PRN QID PRN TP MUSCLE PAIN; Start 10/27/17 at 01:00 Clonazepam (KlonoPIN) 0.5 mg TID PO Last administered on 11/01/17at 14:03; Start 10/27/17 at 09:00; Stop 11/01/17 at 19:14; Status DC Quetiapine Fumarate (SEROquel) 12.5 mg DAILY PO Last administered on 11/05/17at 09:22; Start 10/27/17 at 09:00 Citalopram Hydrobromide (CeleXA) 30 mg DAILY PO Last administered on 10/27/17at 10:12; Start 10/27/17 at 09:00; Stop 10/27/17 at 18:35; Status DC Melatonin 3 mg PRN QHS PRN PO INSOMNIA Last administered on 11/02/17at 20:30; Start 10/27/17 at 01:15 Acetaminophen (Tylenol) 650 mg PRN Q4HRS PRN PO PAIN / TEMP Last administered on 11/05/17 14:43; Start 10/27/17 at 01:15 Carbidopa/Levodopa (Sinemet 25/100) 1 tab TIDAC PO Last administered on 16:42; Start 10/27/17 at 07:30 Carbidopa/Levodopa (Sinemet Cr) 1 tab.sa QHS PO Last administered on 11/05/17at 19:47; Start 10/27/17 at 21:00 Loperamide HCl (Imodium) 2 mg PRN QID PRN PO DIARRHEA; Start 10/27/17 at 01:15 Ondansetron HCl (Zofran Odt) 4 mg PRN BID PRN PO NAUSEA/VOMITING Last administered on 11/02/17 12:42; Start 10/27/17 at 01:15 Al Hydroxide/Mg Hydroxide (Mylanta Plus Xs) 30 ml PRN Q4HRS PRN PO DYSPEPSIA; Start 10/27/17 at 01:15 Magnesium Hydroxide (Milk Of Magnesia) 2,400 mg PRN DAILY PRN PO CONSTIPATION Last administered on 11/04/17 17:24; Start 10/27/17 at 01:15 Meclizine HCl (Antivert) 25 mg PRN TID PRN PO Dizziness; Start 10/27/17 at 01:15 Duloxetine HCl (Cymbalta) 30 mg DAILY PO Last administered on 10/30/17 07:46; Start 10/28/17 at 09:00; Stop 10/31/17 at 08:59; Status DC Duloxetine HCl (Cymbalta) 60 mg DAILY PO Last administered on 11/05/17 09:22; Start 10/31/17 at 09:00 Amlodipine Besylate (Norvasc) 5 mg 1X ONCE PO Last administered on 10/27/17 19 :58; Start 10/27/17 at 18:45; Stop 10/27/17 at 18:49; Status DC Amlodipine Besylate (Norvasc) 10 mg DAILY PO Last administered on 11/05/17 09: 22; Start 10/28/17 at 09:00 Potassium Chloride (Klor-Con) 20 meq TID PO Last administered on 11/05/17 19: 47; Start 10/27/17 at 21:00 Ropinirole HCl (Requip) 0.5 mg TID PO Last administered on 11/05/17 19:47; Start 10/27/17 at 21:00 Clonazepam (KlonoPIN) 0.5 mg BID92 PO Last administered on 11/02/17 13:21; Start 11/02/17 at 09:00; Stop 11/02/17 at 18:52; Status DC Clonazepam (KlonoPIN) 0.25 mg QHS PO Last administered on 11/05/17 19:49; Start 11/01/17 at 21:00 Clonazepam (KlonoPIN) 0.5 mg DAILY@1400 PO ; Start 11/03/17 at 14:00; Stop at 14:00; Status DC Clonazepam (KlonoPIN) 0.25 mg DAILY PO ; Start 11/03/17 at 09:00; Stop 11/03/17 at 09:00; Status DC Clonazepam (KlonoPIN) 0.25 mg DAILY PO Last administered on 11/05/17at 09:24; Start 11/04/17 at 09:00 Clonazepam (KlonoPIN) 0.5 mg BID92 PO Last administered on 11/03/17at 12:26; Start 11/03/17 at 09:00; Stop 11/04/17 at 08:59; Status DC Clonazepam (KlonoPIN) 0.5 mg DAILY@1400 PO ; Start 11/03/17 at 14:00; Stop at 14:00; Status DC Quetiapine Fumarate (SEROquel) 12.5 mg PRN BID PRN PO ANXIETY/MOOD STABILITY Last administered on 11/05/17at 07:57; Start 11/03/17 at 10:15 Clonazepam (KlonoPIN) 0.5 mg DAILY@1400 PO Last administered on 11/05/17at 14:40 ; Start 11/04/17 at 14:00 Bisacodyl (Dulcolax Supp) 10 mg PRN DAILY PRN [place] CONSTIPATION Last administered on 11/05/17at 07:58; Start 11/05/17 at 08:00 Active Scripts Active Reported Meclizine Hcl 25 Mg Tablet 25 Mg PO PRN TID PRN Milk Of Magnesia (Magnesium Hydroxide) 2,400 Mg/10 Ml Oral.susp 2,400 Mg PO PRN DAILY PRN Maalox Advanced Suspension (Mag Hydrox/Aluminum Hyd/Simeth) 355 Ml Oral.susp 30 Ml PO PRN Q4HRS PRN Ondansetron Odt (Ondansetron) 4 Mg Tab.rapdis 4 Mg PO PRN BID PRN Imodium A-D (Loperamide HCl) 2 Mg Capsule 2 Mg PO PRN PRN Acetaminophen 325 Mg Tablet 650 Mg PO PRN Q4HRS PRN Sinemet Cr 50-200 Tablet (Carbidopa/Levodopa) 1 Each Tablet.er 1 Tab PO QHS Sinemet 25-100 Mg Tablet (Carbidopa/Levodopa) 1 Each Tablet 1 Tab PO TID AT 05/1700 Seroquel (Quetiapine Fumarate) 25 Mg Tablet 12.5 Mg PO DAILY Melatonin 5 Mg Tablet 5 Mg PO PRN QHS PRN Escitalopram Oxalate 5 Mg Tablet 15 Mg PO DAILY Clonazepam 0.5 Mg Tablet 0.5 Mg PO TID AT 01/07/1900 I have reviewed the current psychotropics carefully including drug interactions. Risk benefit ratio favors no change other than as noted in my dictated progress note. Diagnosis: Problems: (1) Mild cognitive impairment (2) Dementia in Alzheimer's disease with depression (3) Anxiety disorder (4) Major depressive disorder, recurrent episode (5) Impulse control disorder MARIAH SEAMAN MD November 05, 2017 20:48
[2017-11-06 05:59] VITALS: BP 118/62
[2017-11-06] MEDS: clonazePAM 0.5 MG TABLET PO SCH ×3 (06:35→20:21)
[2017-11-06] MEDS: rOPINIRole 0.5 MG TABLET. PO SCH ×3 (06:35→20:19)
[2017-11-06] MEDS: CARBIDOPA/LEVODOPA 25/100MG TABLET PO SCH ×3 (06:35→16:30)
[2017-11-06] MEDS: DULoxetine HCL 60 MG CAPSULE.DR PO SCH (08:17)
[2017-11-06] MEDS: POTASSIUM CHLORIDE 20 MEQ TABLET.ER. PO SCH ×3 (08:17→20:19)
[2017-11-06] MEDS: QUEtiapine 25 MG TABLET. PO SCH ×2 (08:18→13:55)
[2017-11-06] MEDS: amLODIPine BESYLATE 10 MG TABLET PO SCH (08:32)
[2017-11-06] MEDS: ACETAMINOPHEN 325 MG TABLET PO PRN (09:24)
[2017-11-06 09:37] LABS: BASO % 1 % (0-3); EOS # 0.1 x10^3/uL (0.0-0.7); EOS % 1 % (0-3); HEMOGLOBIN 11.9 g/dL (12.0-15.5); LYMPH # 1.3 x10^3/uL (1.0-4.8); LYMPH % 25 % (24-48); MEAN CORPUSCULAR HEMOGLOBIN 33 pg (25-35); MEAN CORPUSCULAR HGB CONC 34 g/dL (31-37); MEAN CORPUSCULAR VOLUME 96 fL (79-100); MONO # 0.4 x10^3/uL (0.0-1.1); MONO % 7 % (0-9); NEUT # 3.6 x10^3uL (1.8-7.7); NEUT % 66 % (31-73); PLATELET COUNT 284 x10^3/uL (140-400); RED BLOOD COUNT 3.64 x10^6/uL (3.50-5.40); RED CELL DISTRIBUTION WIDTH 14.7 % (11.5-14.5); WHITE BLOOD COUNT 5.4 x10^3/uL (4.0-11.0)
[2017-11-06 09:47] LABS: ALBUMIN 3.6 g/dL (3.4-5.0); ALBUMIN/GLOBULIN RATIO 0.9 (1.0-1.7); CALCIUM 9.1 mg/dL (8.5-10.1); CREATININE 0.7 mg/dL (0.6-1.0); GFR 82.7; POTASSIUM 4.4 mmol/L (3.5-5.1); TOTAL BILIRUBIN 0.4 mg/dL (0.2-1.0); TOTAL PROTEIN 7.6 g/dL (6.4-8.2)
--- NOTE | 2017-11-06 12:02 | PN ---
DATE: 11/03/2017 This late entry, 11/03/2017, covers elements not covered in my initial note of 11/03/2017. SUBJECTIVE: I met with the patient in the evening. She slept 5-1/4 hours, somewhat smiling, anxious, but gets very apprehensive if she has any parkinsonian tremors. We have added Seroquel p.r.n. to help with anxiety, mood lability. Other than this, no ambulation is impaired. REVIEW OF SYSTEMS: No CV, , pulmonary, eye system symptoms on review. MENTAL STATUS EXAM: Oriented to herself and situation. Speech has some latency, coherent. Abstraction fair, computation impaired, language function intact. Mood and affect somewhat anxious, showing improvement. LABORATORY DATA: Reviewed. IMPRESSION: Unchanged from initial note. PLAN: Continue psychotropics mentioned in my initial note and Seroquel p.r.n. added. MARIAH SEAMAN MD DR: SONALI/giovana JOB#: [id number] / [id number]
--- NOTE | 2017-11-06 12:05 | PN ---
DATE: 11/04/2017 This late entry, 11/04/2017, covers elements not covered in my initial note of 11/04/2017. SUBJECTIVE: I met with the patient in the evening. The patient was staffed at the entire treatment team meeting in the morning. Her daughter, Iris, attended and the patient attended the lengthy treatment team meeting as well. Reviewed the patient's history, diagnosis, medications, progress, and discharge plans. Sleeping about 7 hours. Appetite 60-70%. REVIEW OF SYSTEMS: Ambulation impaired. Complains of tremors secondary to Parkinson's. No CV, , pulmonary, eye system symptoms on review. MENTAL STATUS EXAM: Oriented to herself and situation. Speech is coherent, abstraction fair, computation impaired, language function intact. Mood and affect somewhat withdrawn and anxious. LABORATORY DATA: Reviewed. IMPRESSION: Unchanged from initial note. PLAN: She received Seroquel at 3:00 a.m. Was anxious at night, better during the day. Continue psychotropics mentioned in my initial note. MARIAH SEAMAN MD DR: SONALI/giovana JOB#: [id number] / [id number]
[2017-11-06 16:07] VITALS: BP 104/65
[2017-11-06] MEDS: CARBIDOPA/LEVODOPA CR 50/200MG TABLET.SA PO SCH (20:19)
[2017-11-06] MEDS: MELATONIN 3 MG TABLET PO PRN (20:25)
--- NOTE | 2017-11-06 22:52 | PDOC ---
Exam Note: Mike Note: Please also refer to the separate dictated note~for this date of service dictated separately.~Patient seen individually. Discussed the patient with Nursing staff reviewed the chart.~Reviewed interim history and current functioning. Reviewed vital signs,~Labs/ Radiology~and current medications noted below. Continue current treatment with the changes noted in the dictated addendum note Assessment: Vital Signs: Vital Signs Date Time Temp Pulse Resp B/P (MAP) Pulse Ox O2 Delivery O2 Flow Rate FiO2 11/06/17 16:07 98.4 63 18 104/65 (78) 99 I&O Intake and Output 11/06/17 07:00 Intake Total 840 ml Balance 840 ml Intake Oral 840 ml Labs: Laboratory Tests Test 11/06/17 09:15 White Blood Count 5.4 x10^3/uL (4.0-11.0) Red Blood Count 3.64 x10^6/uL (3.50-5.40) Hemoglobin 11.9 g/dL (12.0-15.5) L Hematocrit 35.0 % (36.0-47.0) L Mean Corpuscular Volume 96 fL (79-100) Mean Corpuscular Hemoglobin 33 pg (25-35) Mean Corpuscular Hemoglobin Concent 34 g/dL (31-37) Red Cell Distribution Width 14.7 % (11.5-14.5) H Platelet Count 284 x10^3/uL (140-400) Neutrophils (%) (Auto) 66 % (31-73) Lymphocytes (%) (Auto) 25 % (24-48) Monocytes (%) (Auto) 7 % (0-9) Eosinophils (%) (Auto) 1 % (0-3) Basophils (%) (Auto) 1 % (0-3) Neutrophils # (Auto) 3.6 x10^3uL (1.8-7.7) Lymphocytes # (Auto) 1.3 x10^3/uL (1.0-4.8) Monocytes # (Auto) 0.4 x10^3/uL (0.0-1.1) Eosinophils # (Auto) 0.1 x10^3/uL (0.0-0.7) Basophils # (Auto) 0.0 x10^3/uL (0.0-0.2) Sodium Level 138 mmol/L (136-145) Potassium Level 4.4 mmol/L (3.5-5.1) Chloride Level 101 mmol/L (98-107) Carbon Dioxide Level 30 mmol/L (21-32) Anion Gap 7 (6-14) Blood Urea Nitrogen 17 mg/dL (7-20) Creatinine 0.7 mg/dL (0.6-1.0) Estimated GFR (Cockcroft-Gault) 82.7 BUN/Creatinine Ratio 24 (6-20) H Glucose Level 87 mg/dL (70-99) Calcium Level 9.1 mg/dL (8.5-10.1) Total Bilirubin 0.4 mg/dL (0.2-1.0) Aspartate Amino Transferase (AST) 11 U/L (15-37) L Alanine Aminotransferase (ALT) 9 U/L (14-59) L Alkaline Phosphatase 67 U/L (46-116) Total Protein 7.6 g/dL (6.4-8.2) Albumin 3.6 g/dL (3.4-5.0) Albumin/Globulin Ratio 0.9 (1.0-1.7) L Current Medications: Meds: Current Medications Multi-Ingredient Ointment (Analgesic [place]) 1 cherie PRN QID PRN TP MUSCLE PAIN; Start 10/27/17 at 01:00 Clonazepam (KlonoPIN) 0.5 mg TID PO Last administered on 11/01/17at 14:03; Start 10/27/17 at 09:00; Stop 11/01/17 at 19:14; Status DC Quetiapine Fumarate (SEROquel) 12.5 mg DAILY PO Last administered on 11/05/17at 09:22; Start 10/27/17 at 09:00; Stop 11/05/17 at 20:48; Status DC Citalopram Hydrobromide (CeleXA) 30 mg DAILY PO Last administered on 10/27/17at 10:12; Start 10/27/17 at 09:00; Stop 10/27/17 at 18:35; Status DC Melatonin 3 mg PRN QHS PRN PO INSOMNIA Last administered on 11/06/17at 20:25; Start 10/27/17 at 01:15 Acetaminophen (Tylenol) 650 mg PRN Q4HRS PRN PO PAIN / TEMP Last administered on 11/06/17 09:24; Start 10/27/17 at 01:15 Carbidopa/Levodopa (Sinemet 25/100) 1 tab TIDAC PO Last administered on 16:30; Start 10/27/17 at 07:30 Carbidopa/Levodopa (Sinemet Cr) 1 tab.sa QHS PO Last administered on 11/06/17 20:19; Start 10/27/17 at 21:00 Loperamide HCl (Imodium) 2 mg PRN QID PRN PO DIARRHEA; Start 10/27/17 at 01:15 Ondansetron HCl (Zofran Odt) 4 mg PRN BID PRN PO NAUSEA/VOMITING Last administered on 11/02/17 12:42; Start 10/27/17 at 01:15 Al Hydroxide/Mg Hydroxide (Mylanta Plus Xs) 30 ml PRN Q4HRS PRN PO DYSPEPSIA; Start 10/27/17 at 01:15 Magnesium Hydroxide (Milk Of Magnesia) 2,400 mg PRN DAILY PRN PO CONSTIPATION Last administered on 11/04/17 17:24; Start 10/27/17 at 01:15 Meclizine HCl (Antivert) 25 mg PRN TID PRN PO Dizziness; Start 10/27/17 at 01:15 Duloxetine HCl (Cymbalta) 30 mg DAILY PO Last administered on 10/30/17 07:46; Start 10/28/17 at 09:00; Stop 10/31/17 at 08:59; Status DC Duloxetine HCl (Cymbalta) 60 mg DAILY PO Last administered on 11/06/17 08:17; Start 10/31/17 at 09:00 Amlodipine Besylate (Norvasc) 5 mg 1X ONCE PO Last administered on 10/27/17 19 :58; Start 10/27/17 at 18:45; Stop 10/27/17 at 18:49; Status DC Amlodipine Besylate (Norvasc) 10 mg DAILY PO Last administered on 11/05/17 09: 22; Start 10/28/17 at 09:00 Potassium Chloride (Klor-Con) 20 meq TID PO Last administered on 11/06/17 20: 19; Start 10/27/17 at 21:00 Ropinirole HCl (Requip) 0.5 mg TID PO Last administered on 11/06/17 20:19; Start 10/27/17 at 21:00 Clonazepam (KlonoPIN) 0.5 mg BID92 PO Last administered on 11/02/17at 13:21; Start 11/02/17 at 09:00; Stop 11/02/17 at 18:52; Status DC Clonazepam (KlonoPIN) 0.25 mg QHS PO Last administered on 11/06/17at 20:21; Start 11/01/17 at 21:00 Clonazepam (KlonoPIN) 0.5 mg DAILY@1400 PO ; Start 11/03/17 at 14:00; Stop at 14:00; Status DC Clonazepam (KlonoPIN) 0.25 mg DAILY PO ; Start 11/03/17 at 09:00; Stop 11/03/17 at 09:00; Status DC Clonazepam (KlonoPIN) 0.25 mg DAILY PO Last administered on 11/06/17at 06:35; Start 11/04/17 at 09:00 Clonazepam (KlonoPIN) 0.5 mg BID92 PO Last administered on 11/03/17at 12:26; Start 11/03/17 at 09:00; Stop 11/04/17 at 08:59; Status DC Clonazepam (KlonoPIN) 0.5 mg DAILY@1400 PO ; Start 11/03/17 at 14:00; Stop at 14:00; Status DC Quetiapine Fumarate (SEROquel) 12.5 mg PRN BID PRN PO ANXIETY/MOOD STABILITY Last administered on 11/05/17at 07:57; Start 11/03/17 at 10:15 Clonazepam (KlonoPIN) 0.5 mg DAILY@1400 PO Last administered on 11/06/17at 13:54 ; Start 11/04/17 at 14:00 Bisacodyl (Dulcolax Supp) 10 mg PRN DAILY PRN [place] CONSTIPATION Last administered on 11/05/17at 07:58; Start 11/05/17 at 08:00 Quetiapine Fumarate (SEROquel) 12.5 mg BID@0900,1300 PO Last administered on 06/14at 13:55; Start 11/06/17 at 09:00 Active Scripts Active Reported Meclizine Hcl 25 Mg Tablet 25 Mg PO PRN TID PRN Milk Of Magnesia (Magnesium Hydroxide) 2,400 Mg/10 Ml Oral.susp 2,400 Mg PO PRN DAILY PRN Maalox Advanced Suspension (Mag Hydrox/Aluminum Hyd/Simeth) 355 Ml Oral.susp 30 Ml PO PRN Q4HRS PRN Ondansetron Odt (Ondansetron) 4 Mg Tab.rapdis 4 Mg PO PRN BID PRN Imodium A-D (Loperamide HCl) 2 Mg Capsule 2 Mg PO PRN PRN Acetaminophen 325 Mg Tablet 650 Mg PO PRN Q4HRS PRN Sinemet Cr 50-200 Tablet (Carbidopa/Levodopa) 1 Each Tablet.er 1 Tab PO QHS Sinemet 25-100 Mg Tablet (Carbidopa/Levodopa) 1 Each Tablet 1 Tab PO TID AT 0 Seroquel (Quetiapine Fumarate) 25 Mg Tablet 12.5 Mg PO DAILY Melatonin 5 Mg Tablet 5 Mg PO PRN QHS PRN Escitalopram Oxalate 5 Mg Tablet 15 Mg PO DAILY Clonazepam 0.5 Mg Tablet 0.5 Mg PO TID AT 01/07/1900 I have reviewed the current psychotropics carefully including drug interactions. Risk benefit ratio favors no change other than as noted in my dictated progress note. Diagnosis: Problems: (1) Mild cognitive impairment (2) Dementia in Alzheimer's disease with depression (3) Anxiety disorder (4) Major depressive disorder, recurrent episode (5) Impulse control disorder MARIAH SEAMAN MD November 06, 2017 22:52
[2017-11-07 05:37] VITALS: BP 120/67
[2017-11-07] MEDS: rOPINIRole 0.5 MG TABLET. PO SCH ×3 (05:43→20:17)
[2017-11-07] MEDS: clonazePAM 0.5 MG TABLET PO SCH ×3 (09:00→20:18)
[2017-11-07] MEDS: CARBIDOPA/LEVODOPA 25/100MG TABLET PO SCH ×3 (09:16→16:58)
[2017-11-07] MEDS: DULoxetine HCL 60 MG CAPSULE.DR PO SCH (09:16)
[2017-11-07] MEDS: QUEtiapine 25 MG TABLET. PO SCH ×2 (09:16→12:50)
[2017-11-07] MEDS: POTASSIUM CHLORIDE 20 MEQ TABLET.ER. PO SCH ×3 (09:16→20:17)
[2017-11-07] MEDS: amLODIPine BESYLATE 10 MG TABLET PO SCH (09:17)
[2017-11-07] MEDS: ALPRAZolam 0.25 MG TABLET PO PRN ×2 (09:33→15:10)
[2017-11-07 16:47] VITALS: BP 97/54
[2017-11-07] MEDS: ACETAMINOPHEN 325 MG TABLET PO PRN (16:58)
[2017-11-07] MEDS: CARBIDOPA/LEVODOPA CR 50/200MG TABLET.SA PO SCH (20:16)
--- NOTE | 2017-11-07 20:51 | PDOC ---
Exam Note: Mike Note: Please also refer to the separate dictated note~for this date of service dictated separately.~Patient seen individually. Discussed the patient with Nursing staff reviewed the chart.~Reviewed interim history and current functioning. Reviewed vital signs,~Labs/ Radiology~and current medications noted below. Continue current treatment with the changes noted in the dictated addendum note Assessment: Vital Signs: Vital Signs Date Time Temp Pulse Resp B/P (MAP) Pulse Ox O2 Delivery O2 Flow Rate FiO2 11/07/17 16:47 98.8 68 20 97/54 (68) 97 I&O Intake and Output 11/07/17 07:00 Intake Total 1260 ml Balance 1260 ml Intake Oral 1260 ml Current Medications: Meds: Current Medications Multi-Ingredient Ointment (Analgesic [place]) 1 cherie PRN QID PRN TP MUSCLE PAIN; Start 10/27/17 at 01:00 Clonazepam (KlonoPIN) 0.5 mg TID PO Last administered on 11/01/17at 14:03; Start 10/27/17 at 09:00; Stop 11/01/17 at 19:14; Status DC Quetiapine Fumarate (SEROquel) 12.5 mg DAILY PO Last administered on 11/05/17at 09:22; Start 10/27/17 at 09:00; Stop 11/05/17 at 20:48; Status DC Citalopram Hydrobromide (CeleXA) 30 mg DAILY PO Last administered on 10/27/17at 10:12; Start 10/27/17 at 09:00; Stop 10/27/17 at 18:35; Status DC Melatonin 3 mg PRN QHS PRN PO INSOMNIA Last administered on 11/06/17at 20:25; Start 10/27/17 at 01:15 Acetaminophen (Tylenol) 650 mg PRN Q4HRS PRN PO PAIN / TEMP Last administered on 11/07/17 16:58; Start 10/27/17 at 01:15 Carbidopa/Levodopa (Sinemet 25/100) 1 tab TIDAC PO Last administered on 16:58; Start 10/27/17 at 07:30 Carbidopa/Levodopa (Sinemet Cr) 1 tab.sa QHS PO Last administered on 11/07/17at 20:16; Start 10/27/17 at 21:00 Loperamide HCl (Imodium) 2 mg PRN QID PRN PO DIARRHEA; Start 10/27/17 at 01:15 Ondansetron HCl (Zofran Odt) 4 mg PRN BID PRN PO NAUSEA/VOMITING Last administered on 11/02/17 12:42; Start 10/27/17 at 01:15 Al Hydroxide/Mg Hydroxide (Mylanta Plus Xs) 30 ml PRN Q4HRS PRN PO DYSPEPSIA; Start 10/27/17 at 01:15 Magnesium Hydroxide (Milk Of Magnesia) 2,400 mg PRN DAILY PRN PO CONSTIPATION Last administered on 11/04/17 17:24; Start 10/27/17 at 01:15 Meclizine HCl (Antivert) 25 mg PRN TID PRN PO Dizziness; Start 10/27/17 at 01:15 Duloxetine HCl (Cymbalta) 30 mg DAILY PO Last administered on 10/30/17 07:46; Start 10/28/17 at 09:00; Stop 10/31/17 at 08:59; Status DC Duloxetine HCl (Cymbalta) 60 mg DAILY PO Last administered on 11/07/17 09:16; Start 10/31/17 at 09:00 Amlodipine Besylate (Norvasc) 5 mg 1X ONCE PO Last administered on 10/27/17 19 :58; Start 10/27/17 at 18:45; Stop 10/27/17 at 18:49; Status DC Amlodipine Besylate (Norvasc) 10 mg DAILY PO Last administered on 11/07/17 09: 17; Start 10/28/17 at 09:00 Potassium Chloride (Klor-Con) 20 meq TID PO Last administered on 11/07/17 20: 17; Start 10/27/17 at 21:00 Ropinirole HCl (Requip) 0.5 mg TID PO Last administered on 11/07/17 20:17; Start 10/27/17 at 21:00 Clonazepam (KlonoPIN) 0.5 mg BID92 PO Last administered on 11/02/17 13:21; Start 11/02/17 at 09:00; Stop 11/02/17 at 18:52; Status DC Clonazepam (KlonoPIN) 0.25 mg QHS PO Last administered on 11/07/17at 20:18; Start 11/01/17 at 21:00 Clonazepam (KlonoPIN) 0.5 mg DAILY@1400 PO ; Start 11/03/17 at 14:00; Stop at 14:00; Status DC Clonazepam (KlonoPIN) 0.25 mg DAILY PO ; Start 11/03/17 at 09:00; Stop 11/03/17 at 09:00; Status DC Clonazepam (KlonoPIN) 0.25 mg DAILY PO Last administered on 11/07/17at 09:00; Start 11/04/17 at 09:00 Clonazepam (KlonoPIN) 0.5 mg BID92 PO Last administered on 11/03/17at 12:26; Start 11/03/17 at 09:00; Stop 11/04/17 at 08:59; Status DC Clonazepam (KlonoPIN) 0.5 mg DAILY@1400 PO ; Start 11/03/17 at 14:00; Stop at 14:00; Status DC Quetiapine Fumarate (SEROquel) 12.5 mg PRN BID PRN PO ANXIETY/MOOD STABILITY Last administered on 11/05/17at 07:57; Start 11/03/17 at 10:15 Clonazepam (KlonoPIN) 0.5 mg DAILY@1400 PO Last administered on 11/07/17at 12:50 ; Start 11/04/17 at 14:00 Bisacodyl (Dulcolax Supp) 10 mg PRN DAILY PRN [place] CONSTIPATION Last administered on 11/05/17at 07:58; Start 11/05/17 at 08:00 Quetiapine Fumarate (SEROquel) 12.5 mg BID@0900,1300 PO Last administered on at 12:50; Start 11/06/17 at 09:00 Alprazolam (Xanax) 0.25 mg PRN Q2HR PRN PO ANXIETY / AGITATION Last administered on 11/07/17at 15:10; Start 11/07/17 at 09:30 Active Scripts Active Reported Meclizine Hcl 25 Mg Tablet 25 Mg PO PRN TID PRN Milk Of Magnesia (Magnesium Hydroxide) 2,400 Mg/10 Ml Oral.susp 2,400 Mg PO PRN DAILY PRN Maalox Advanced Suspension (Mag Hydrox/Aluminum Hyd/Simeth) 355 Ml Oral.susp 30 Ml PO PRN Q4HRS PRN Ondansetron Odt (Ondansetron) 4 Mg Tab.rapdis 4 Mg PO PRN BID PRN Imodium A-D (Loperamide HCl) 2 Mg Capsule 2 Mg PO PRN PRN Acetaminophen 325 Mg Tablet 650 Mg PO PRN Q4HRS PRN Sinemet Cr 50-200 Tablet (Carbidopa/Levodopa) 1 Each Tablet.er 1 Tab PO QHS Sinemet 25-100 Mg Tablet (Carbidopa/Levodopa) 1 Each Tablet 1 Tab PO TID AT 0 Seroquel (Quetiapine Fumarate) 25 Mg Tablet 12.5 Mg PO DAILY Melatonin 5 Mg Tablet 5 Mg PO PRN QHS PRN Escitalopram Oxalate 5 Mg Tablet 15 Mg PO DAILY Clonazepam 0.5 Mg Tablet 0.5 Mg PO TID AT 01/07/1900 I have reviewed the current psychotropics carefully including drug interactions. Risk benefit ratio favors no change other than as noted in my dictated progress note. Diagnosis: Problems: (1) Mild cognitive impairment (2) Dementia in Alzheimer's disease with depression (3) Anxiety disorder (4) Major depressive disorder, recurrent episode (5) Impulse control disorder MARIAH SEAMAN MD November 07, 2017 20:51
--- NOTE | 2017-11-07 23:22 | PN ---
DATE: 11/05/2017 This is a late entry of 11/05/2017 covers elements not covered in my initial note of 11/05/2017. SUBJECTIVE: I met with the patient in the evening. The patient slept 9-3/4 hours previous evening, has had some constipation, anxious around the time that she receives her Sinemet and anxiety worsens the tremors. REVIEW OF SYSTEMS: No CV, , pulmonary, eye system symptoms on review other than the tremors. MENTAL STATUS EXAM: Oriented to herself and situation. Speech coherent, abstraction fair, computation impaired. Short-term memory is impaired. No suicidal or homicidal ideation. IMPRESSION: Unchanged from initial note. PLAN: Increase Seroquel from 12.5 mg daily to 12.5 mg 09:00 a.m., 01:00 p.m. Continue 12.5 mg b.i.d. p.r.n. along with Cymbalta, Klonopin, melatonin. MARIAH SEAMAN MD DR: SONALI/giovana JOB#: [id number] / [id number]
[2017-11-08] MEDS: ALPRAZolam 0.25 MG TABLET PO PRN ×2 (02:48→10:23)
[2017-11-08 05:49] VITALS: BP 102/55
[2017-11-08] MEDS: CARBIDOPA/LEVODOPA 25/100MG TABLET PO SCH ×3 (08:36→17:16)
[2017-11-08] MEDS: POTASSIUM CHLORIDE 20 MEQ TABLET.ER. PO SCH ×3 (08:36→19:35)
[2017-11-08] MEDS: DULoxetine HCL 60 MG CAPSULE.DR PO SCH (08:36)
[2017-11-08] MEDS: rOPINIRole 0.5 MG TABLET. PO SCH ×2 (08:37→13:11)
[2017-11-08] MEDS: clonazePAM 0.5 MG TABLET PO SCH ×3 (08:39→19:35)
[2017-11-08] MEDS: amLODIPine BESYLATE 10 MG TABLET PO SCH (09:00)
[2017-11-08] MEDS: QUEtiapine 25 MG TABLET. PO SCH ×2 (10:23→13:10)
[2017-11-08 15:53] VITALS: BP 92/59
[2017-11-08] MEDS: MELATONIN 3 MG TABLET PO PRN (19:36)
[2017-11-08] MEDS: CARBIDOPA/LEVODOPA CR 50/200MG TABLET.SA PO SCH (19:36)
[2017-11-08] MEDS: rOPINIRole 1 MG TABLET. PO SCH (19:37)
--- NOTE | 2017-11-08 20:53 | PDOC ---
Exam Note: Mike Note: Please also refer to the separate dictated note~for this date of service dictated separately.~Patient seen individually. Discussed the patient with Nursing staff reviewed the chart.~Reviewed interim history and current functioning. Reviewed vital signs,~Labs/ Radiology~and current medications noted below. Continue current treatment with the changes noted in the dictated addendum note Assessment: Vital Signs: Vital Signs Date Time Temp Pulse Resp B/P (MAP) Pulse Ox O2 Delivery O2 Flow Rate FiO2 11/08/17 15:53 98.9 67 18 92/59 (70) 97 11/08/17 05:49 Room Air I&O Intake and Output 11/08/17 07:00 Intake Total 720 ml Balance 720 ml Intake Oral 720 ml Current Medications: Meds: Current Medications Multi-Ingredient Ointment (Analgesic [place]) 1 cherie PRN QID PRN TP MUSCLE PAIN; Start 10/27/17 at 01:00 Clonazepam (KlonoPIN) 0.5 mg TID PO Last administered on 11/01/17 14:03; Start 10/27/17 at 09:00; Stop 11/01/17 at 19:14; Status DC Quetiapine Fumarate (SEROquel) 12.5 mg DAILY PO Last administered on 11/05/17at 09:22; Start 10/27/17 at 09:00; Stop 11/05/17 at 20:48; Status DC Citalopram Hydrobromide (CeleXA) 30 mg DAILY PO Last administered on 10/27/17at 10:12; Start 10/27/17 at 09:00; Stop 10/27/17 at 18:35; Status DC Melatonin 3 mg PRN QHS PRN PO INSOMNIA Last administered on 11/08/17at 19:36; Start 10/27/17 at 01:15 Acetaminophen (Tylenol) 650 mg PRN Q4HRS PRN PO PAIN / TEMP Last administered on 11/07/17at 16:58; Start 10/27/17 at 01:15 Carbidopa/Levodopa (Sinemet 25/100) 1 tab TIDAC PO Last administered on 17:16; Start 10/27/17 at 07:30 Carbidopa/Levodopa (Sinemet Cr) 1 tab.sa QHS PO Last administered on 11/08/17at 19:36; Start 10/27/17 at 21:00 Loperamide HCl (Imodium) 2 mg PRN QID PRN PO DIARRHEA; Start 10/27/17 at 01:15 Ondansetron HCl (Zofran Odt) 4 mg PRN BID PRN PO NAUSEA/VOMITING Last administered on 11/02/17at 12:42; Start 10/27/17 at 01:15 Al Hydroxide/Mg Hydroxide (Mylanta Plus Xs) 30 ml PRN Q4HRS PRN PO DYSPEPSIA; Start 10/27/17 at 01:15 Magnesium Hydroxide (Milk Of Magnesia) 2,400 mg PRN DAILY PRN PO CONSTIPATION Last administered on 11/04/17 17:24; Start 10/27/17 at 01:15 Meclizine HCl (Antivert) 25 mg PRN TID PRN PO Dizziness; Start 10/27/17 at 01:15 Duloxetine HCl (Cymbalta) 30 mg DAILY PO Last administered on 10/30/17at 07:46; Start 10/28/17 at 09:00; Stop 10/31/17 at 08:59; Status DC Duloxetine HCl (Cymbalta) 60 mg DAILY PO Last administered on 11/08/17at 08:36; Start 10/31/17 at 09:00 Amlodipine Besylate (Norvasc) 5 mg 1X ONCE PO Last administered on 10/27/17 19 :58; Start 10/27/17 at 18:45; Stop 10/27/17 at 18:49; Status DC Amlodipine Besylate (Norvasc) 10 mg DAILY PO Last administered on 11/07/17at 09: 17; Start 10/28/17 at 09:00 Potassium Chloride (Klor-Con) 20 meq TID PO Last administered on 11/08/17 19: 35; Start 10/27/17 at 21:00 Ropinirole HCl (Requip) 0.5 mg TID PO Last administered on 11/08/17 13:11; Start 10/27/17 at 21:00; Stop 11/08/17 at 18:28; Status DC Clonazepam (KlonoPIN) 0.5 mg BID92 PO Last administered on 11/02/17 13:21; Start 11/02/17 at 09:00; Stop 11/02/17 at 18:52; Status DC Clonazepam (KlonoPIN) 0.25 mg QHS PO Last administered on 11/08/17at 19:35; Start 11/01/17 at 21:00 Clonazepam (KlonoPIN) 0.5 mg DAILY@1400 PO ; Start 11/03/17 at 14:00; Stop at 14:00; Status DC Clonazepam (KlonoPIN) 0.25 mg DAILY PO ; Start 11/03/17 at 09:00; Stop 11/03/17 at 09:00; Status DC Clonazepam (KlonoPIN) 0.25 mg DAILY PO Last administered on 11/08/17at 08:39; Start 11/04/17 at 09:00 Clonazepam (KlonoPIN) 0.5 mg BID92 PO Last administered on 11/03/17at 12:26; Start 11/03/17 at 09:00; Stop 11/04/17 at 08:59; Status DC Clonazepam (KlonoPIN) 0.5 mg DAILY@1400 PO ; Start 11/03/17 at 14:00; Stop at 14:00; Status DC Quetiapine Fumarate (SEROquel) 12.5 mg PRN BID PRN PO ANXIETY/MOOD STABILITY Last administered on 11/05/17at 07:57; Start 11/03/17 at 10:15 Clonazepam (KlonoPIN) 0.5 mg DAILY@1400 PO Last administered on 11/08/17at 13:10 ; Start 11/04/17 at 14:00; Stop 11/08/17 at 18:44; Status DC Bisacodyl (Dulcolax Supp) 10 mg PRN DAILY PRN [place] CONSTIPATION Last administered on 11/05/17at 07:58; Start 11/05/17 at 08:00 Quetiapine Fumarate (SEROquel) 12.5 mg BID@0900,1300 PO Last administered on at 13:10; Start 11/06/17 at 09:00 Alprazolam (Xanax) 0.25 mg PRN Q2HR PRN PO ANXIETY / AGITATION Last administered on 11/08/17at 10:23; Start 11/07/17 at 09:30 Ropinirole HCl (Requip) 1 mg TID PO Last administered on 11/08/17at 19:37; Start 11/08/17 at 21:00 Clonazepam (KlonoPIN) 0.25 mg 1400 PO ; Start 11/09/17 at 14:00 Buspirone HCl (Buspar) 5 mg 0900,1300 PO ; Start 11/09/17 at 09:00 Active Scripts Active Reported Meclizine Hcl 25 Mg Tablet 25 Mg PO PRN TID PRN Milk Of Magnesia (Magnesium Hydroxide) 2,400 Mg/10 Ml Oral.susp 2,400 Mg PO PRN DAILY PRN Maalox Advanced Suspension (Mag Hydrox/Aluminum Hyd/Simeth) 355 Ml Oral.susp 30 Ml PO PRN Q4HRS PRN Ondansetron Odt (Ondansetron) 4 Mg Tab.rapdis 4 Mg PO PRN BID PRN Imodium A-D (Loperamide HCl) 2 Mg Capsule 2 Mg PO PRN PRN Acetaminophen 325 Mg Tablet 650 Mg PO PRN Q4HRS PRN Sinemet Cr 50-200 Tablet (Carbidopa/Levodopa) 1 Each Tablet.er 1 Tab PO QHS Sinemet 25-100 Mg Tablet (Carbidopa/Levodopa) 1 Each Tablet 1 Tab PO TID AT 1700 Seroquel (Quetiapine Fumarate) 25 Mg Tablet 12.5 Mg PO DAILY Melatonin 5 Mg Tablet 5 Mg PO PRN QHS PRN Escitalopram Oxalate 5 Mg Tablet 15 Mg PO DAILY Clonazepam 0.5 Mg Tablet 0.5 Mg PO TID AT 01/07/1900 I have reviewed the current psychotropics carefully including drug interactions. Risk benefit ratio favors no change other than as noted in my dictated progress note. Diagnosis: Problems: (1) Mild cognitive impairment (2) Dementia in Alzheimer's disease with depression (3) Anxiety disorder (4) Major depressive disorder, recurrent episode (5) Impulse control disorder MARIAH SEAMAN MD November 08, 2017 20:53
--- NOTE | 2017-11-09 00:34 | PN ---
DATE: 11/06/2017 PSYCHIATRIC PROGRESS NOTE This is a late entry for 11/06/2017 covers elements not covered in my initial note 11/06/2017. SUBJECTIVE: I met with the patient in the evening. The patient slept 8-1/4 hours, less obsessed regarding medications. Affect is a little better this week, still anxious and the anxiety worsens her tremors. REVIEW OF SYSTEMS: No CV, , pulmonary, eye system symptoms on review other than the tremors. MENTAL STATUS EXAM: Oriented to herself and situation. Speech has some latency, coherent. Abstraction fair, computation impaired, language function intact. Mood and affect still anxious, labile at times. LABORATORY DATA: Reviewed. IMPRESSION: Unchanged from initial note. No suicidal ideation. PLAN: Continue current psychotropics. Adjust as indicated from initial note. MAN Yeni SEAMAN MD DR: SONALI/giovana JOB#: [id number] / [id number]
[2017-11-09] MEDS: ALPRAZolam 0.25 MG TABLET PO PRN (01:00)
[2017-11-09] MEDS: ACETAMINOPHEN 325 MG TABLET PO PRN ×2 (01:00→17:25)
--- NOTE | 2017-11-09 05:06 | PN ---
DATE: 11/07/2017 This is a late entry, 11/07/2017, covers the elements not covered in my initial note, 11/07/2017. SUBJECTIVE: I met with the patient in the evening. Overall, the patient had a good night, had a good day during the day on 11/07/2017. Daughter and granddaughter visited and she processed this with me at length. She was very pleased to have her granddaughter visit her, since granddaughter just graduated from and is the oldest of her grandchildren and states it is a favorite grandchild. She is anxious during visiting hours. REVIEW OF SYSTEMS: Positive for some parkinsonian tremors. No CV, , pulmonary, eye system symptoms on review. MENTAL STATUS EXAM: Reasonably oriented to place and situation. Speech moderate latency, low in volume, parkinsonian facial expression, abstraction fair, computation impaired, language function intact. Mood and affect somewhat anxious, dysphoric, but improved. LABORATORY DATA: Reviewed. IMPRESSION: Major depressive disorder in partial remission; anxiety disorder, unspecified; cognitive disorder, unspecified; Parkinson's disease. PLAN: Continue psychotropics as mentioned in my initial note. MAN Yeni SEAMAN MD DR: SONALI/giovana JOB#: [id number] / [id number]
[2017-11-09] MEDS: rOPINIRole 1 MG TABLET. PO SCH ×3 (05:42→20:22)
[2017-11-09 06:21] VITALS: BP 145/78
[2017-11-09] MEDS: DULoxetine HCL 60 MG CAPSULE.DR PO SCH (08:58)
[2017-11-09] MEDS: QUEtiapine 25 MG TABLET. PO SCH ×2 (08:58→13:05)
[2017-11-09] MEDS: POTASSIUM CHLORIDE 20 MEQ TABLET.ER. PO SCH ×3 (08:59→20:22)
[2017-11-09] MEDS: amLODIPine BESYLATE 10 MG TABLET PO SCH (08:59)
[2017-11-09] MEDS: CARBIDOPA/LEVODOPA 25/100MG TABLET PO SCH ×3 (08:59→17:24)
[2017-11-09] MEDS: clonazePAM 0.5 MG TABLET PO SCH ×3 (09:00→20:21)
[2017-11-09] MEDS: busPIRone 5 MG TABLET. PO SCH ×2 (09:01→13:05)
[2017-11-09] MEDS ORDERED: clonazePAM 0.5 MG TABLET PO SCH (14:00)
[2017-11-09 16:34] VITALS: BP 94/53
--- NOTE | 2017-11-09 18:37 | PN ---
DATE: 11/08/2017 This is a late entry 11/08/2017 covers elements not covered in my initial note 11/08/2017. I met with the patient in the evening of 11/08/2017. The patient slept 9-1/2 hours. The patient did well the previous evening, but was anxious [employer] on 11/08/2017 regarding discharge plans, crying, tearful, complains of worsening tremors. Dr. Crowell did see her evening of 11/08/2017 and I discussed with Dr. Crowell as well. Requip is going to be added and adjusted per Dr. Crowell for her Parkinson's. REVIEW OF SYSTEMS: Positive for the tremors, impairment of ambulation with walker. No CV, , pulmonary, eye system symptoms on review. MENTAL STATUS EXAM: Reasonably oriented. Speech moderate latency, often responses monosyllabic. Abstraction fair, computation impaired, language function intact. Mood and affect remains somewhat dysphoric, anxious. No active suicidal ideation, though at times she has voiced suicidal ideation to the nursing staff earlier on 11/08/2017. LABORATORY DATA: Reviewed. IMPRESSION: Major depressive disorder, recurrent, in partial remission; anxiety disorder, unspecified. PLAN: We were attempting to reduce the Klonopin for the 2:00 p.m. dosage from 0.5 mg down to 0.25 mg. However, at the time of this dictation, I was called by the nursing staff earlier the patient's anxiety is worse and we will abstain from reducing the Klonopin just yet and start BuSpar 5 mg twice a day. Continue rest unchanged from initial note. MAN Yeni SEAMAN MD DR: SONALI/giovana JOB#: [id number] / [id number]
--- NOTE | 2017-11-09 20:19 | PDOC ---
Exam Note: Mike Note: Please also refer to the separate dictated note~for this date of service dictated separately.~Patient seen individually. Discussed the patient with Nursing staff reviewed the chart.~Reviewed interim history and current functioning. Reviewed vital signs,~Labs/ Radiology~and current medications noted below. Continue current treatment with the changes noted in the dictated addendum note Assessment: Vital Signs: Vital Signs Date Time Temp Pulse Resp B/P (MAP) Pulse Ox O2 Delivery O2 Flow Rate FiO2 11/09/17 16:34 98.2 69 16 94/53 (67) 99 11/08/17 05:49 Room Air I&O Intake and Output 11/09/17 07:00 Intake Total 600 ml Balance 600 ml Intake Oral 600 ml Current Medications: Meds: Current Medications Multi-Ingredient Ointment (Analgesic [place]) 1 cherie PRN QID PRN TP MUSCLE PAIN; Start 10/27/17 at 01:00 Clonazepam (KlonoPIN) 0.5 mg TID PO Last administered on 11/01/17 14:03; Start 10/27/17 at 09:00; Stop 11/01/17 at 19:14; Status DC Quetiapine Fumarate (SEROquel) 12.5 mg DAILY PO Last administered on 11/05/17at 09:22; Start 10/27/17 at 09:00; Stop 11/05/17 at 20:48; Status DC Citalopram Hydrobromide (CeleXA) 30 mg DAILY PO Last administered on 10/27/17at 10:12; Start 10/27/17 at 09:00; Stop 10/27/17 at 18:35; Status DC Melatonin 3 mg PRN QHS PRN PO INSOMNIA Last administered on 11/08/17at 19:36; Start 10/27/17 at 01:15 Acetaminophen (Tylenol) 650 mg PRN Q4HRS PRN PO PAIN / TEMP Last administered on 11/09/17 17:25; Start 10/27/17 at 01:15 Carbidopa/Levodopa (Sinemet 25/100) 1 tab TIDAC PO Last administered on 17:24; Start 10/27/17 at 07:30 Carbidopa/Levodopa (Sinemet Cr) 1 tab.sa QHS PO Last administered on 11/08/17at 19:36; Start 10/27/17 at 21:00 Loperamide HCl (Imodium) 2 mg PRN QID PRN PO DIARRHEA; Start 10/27/17 at 01:15 Ondansetron HCl (Zofran Odt) 4 mg PRN BID PRN PO NAUSEA/VOMITING Last administered on 11/02/17at 12:42; Start 10/27/17 at 01:15 Al Hydroxide/Mg Hydroxide (Mylanta Plus Xs) 30 ml PRN Q4HRS PRN PO DYSPEPSIA; Start 10/27/17 at 01:15 Magnesium Hydroxide (Milk Of Magnesia) 2,400 mg PRN DAILY PRN PO CONSTIPATION Last administered on 11/04/17 17:24; Start 10/27/17 at 01:15 Meclizine HCl (Antivert) 25 mg PRN TID PRN PO Dizziness; Start 10/27/17 at 01:15 Duloxetine HCl (Cymbalta) 30 mg DAILY PO Last administered on 10/30/17at 07:46; Start 10/28/17 at 09:00; Stop 10/31/17 at 08:59; Status DC Duloxetine HCl (Cymbalta) 60 mg DAILY PO Last administered on 11/09/17at 08:58; Start 10/31/17 at 09:00 Amlodipine Besylate (Norvasc) 5 mg 1X ONCE PO Last administered on 10/27/17 19 :58; Start 10/27/17 at 18:45; Stop 10/27/17 at 18:49; Status DC Amlodipine Besylate (Norvasc) 10 mg DAILY PO Last administered on 11/09/17at 08: 59; Start 10/28/17 at 09:00 Potassium Chloride (Klor-Con) 20 meq TID PO Last administered on 11/09/17 13: 05; Start 10/27/17 at 21:00 Ropinirole HCl (Requip) 0.5 mg TID PO Last administered on 11/08/17 13:11; Start 10/27/17 at 21:00; Stop 11/08/17 at 18:28; Status DC Clonazepam (KlonoPIN) 0.5 mg BID92 PO Last administered on 11/02/17 13:21; Start 11/02/17 at 09:00; Stop 11/02/17 at 18:52; Status DC Clonazepam (KlonoPIN) 0.25 mg QHS PO Last administered on 11/08/17at 19:35; Start 11/01/17 at 21:00; Stop 11/09/17 at 07:50; Status DC Clonazepam (KlonoPIN) 0.5 mg DAILY@1400 PO ; Start 11/03/17 at 14:00; Stop at 14:00; Status DC Clonazepam (KlonoPIN) 0.25 mg DAILY PO ; Start 11/03/17 at 09:00; Stop 11/03/17 at 09:00; Status DC Clonazepam (KlonoPIN) 0.25 mg DAILY PO Last administered on 11/08/17at 08:39; Start 11/04/17 at 09:00; Stop 11/09/17 at 07:50; Status DC Clonazepam (KlonoPIN) 0.5 mg BID92 PO Last administered on 11/03/17at 12:26; Start 11/03/17 at 09:00; Stop 11/04/17 at 08:59; Status DC Clonazepam (KlonoPIN) 0.5 mg DAILY@1400 PO ; Start 11/03/17 at 14:00; Stop at 14:00; Status DC Quetiapine Fumarate (SEROquel) 12.5 mg PRN BID PRN PO ANXIETY/MOOD STABILITY Last administered on 11/05/17at 07:57; Start 11/03/17 at 10:15 Clonazepam (KlonoPIN) 0.5 mg DAILY@1400 PO Last administered on 11/08/17at 13:10 ; Start 11/04/17 at 14:00; Stop 11/08/17 at 18:44; Status DC Bisacodyl (Dulcolax Supp) 10 mg PRN DAILY PRN [place] CONSTIPATION Last administered on 11/05/17at 07:58; Start 11/05/17 at 08:00 Quetiapine Fumarate (SEROquel) 12.5 mg BID@0900,1300 PO Last administered on at 13:05; Start 11/06/17 at 09:00; Stop 11/09/17 at 18:22; Status DC Alprazolam (Xanax) 0.25 mg PRN Q2HR PRN PO ANXIETY / AGITATION Last administered on 11/09/17at 01:00; Start 11/07/17 at 09:30 Ropinirole HCl (Requip) 1 mg TID PO Last administered on 11/09/17at 13:05; Start 11/08/17 at 21:00 Clonazepam (KlonoPIN) 0.25 mg 1400 PO ; Start 11/09/17 at 14:00; Stop 11/09/17 at 14:00; Status DC Buspirone HCl (Buspar) 5 mg 0900,1300 PO Last administered on 11/09/17at 13:05; Start 11/09/17 at 09:00 Clonazepam (KlonoPIN) 0.5 mg TID PO Last administered on 11/09/17at 13:05; Start 11/09/17 at 09:00 Quetiapine Fumarate (SEROquel) 12.5 mg TID@0800,1200,1600 PO ; Start 11/10/17 at 08:00 Quetiapine Fumarate (SEROquel) 12.5 mg DAILY@1800 PO ; Start 11/10/17 at 18:00 Active Scripts Active Reported Meclizine Hcl 25 Mg Tablet 25 Mg PO PRN TID PRN Milk Of Magnesia (Magnesium Hydroxide) 2,400 Mg/10 Ml Oral.susp 2,400 Mg PO PRN DAILY PRN Maalox Advanced Suspension (Mag Hydrox/Aluminum Hyd/Simeth) 355 Ml Oral.susp 30 Ml PO PRN Q4HRS PRN Ondansetron Odt (Ondansetron) 4 Mg Tab.rapdis 4 Mg PO PRN BID PRN Imodium A-D (Loperamide HCl) 2 Mg Capsule 2 Mg PO PRN PRN Acetaminophen 325 Mg Tablet 650 Mg PO PRN Q4HRS PRN Sinemet Cr 50-200 Tablet (Carbidopa/Levodopa) 1 Each Tablet.er 1 Tab PO QHS Sinemet 25-100 Mg Tablet (Carbidopa/Levodopa) 1 Each Tablet 1 Tab PO TID AT 05/1700 Seroquel (Quetiapine Fumarate) 25 Mg Tablet 12.5 Mg PO DAILY Melatonin 5 Mg Tablet 5 Mg PO PRN QHS PRN Escitalopram Oxalate 5 Mg Tablet 15 Mg PO DAILY Clonazepam 0.5 Mg Tablet 0.5 Mg PO TID AT 01/07/1900 I have reviewed the current psychotropics carefully including drug interactions. Risk benefit ratio favors no change other than as noted in my dictated progress note. Diagnosis: Problems: (1) Mild cognitive impairment (2) Dementia in Alzheimer's disease with depression (3) Anxiety disorder (4) Major depressive disorder, recurrent episode (5) Impulse control disorder MARIAH SEAMAN MD November 09, 2017 20:19
[2017-11-09] MEDS: MAGNESIUM HYDROXIDE 2,400 MG/30 ML ORAL.SUSP. PO PRN (20:22)
[2017-11-09] MEDS: MELATONIN 3 MG TABLET PO PRN (20:22)
[2017-11-09] MEDS: CARBIDOPA/LEVODOPA CR 50/200MG TABLET.SA PO SCH (20:22)
[2017-11-10 06:02] VITALS: BP 105/53
[2017-11-10] MEDS: ACETAMINOPHEN 325 MG TABLET PO PRN ×2 (06:29→14:51)
[2017-11-10 07:31] VITALS: BP 110/64
[2017-11-10] MEDS: CARBIDOPA/LEVODOPA 25/100MG TABLET PO SCH ×3 (07:43→16:11)
[2017-11-10] MEDS: QUEtiapine 25 MG TABLET. PO SCH ×4 (07:44→17:40)
[2017-11-10] MEDS: amLODIPine BESYLATE 10 MG TABLET PO SCH (07:45)
[2017-11-10] MEDS: busPIRone 5 MG TABLET. PO SCH ×2 (07:45→13:33)
[2017-11-10] MEDS: POTASSIUM CHLORIDE 20 MEQ TABLET.ER. PO SCH ×3 (07:46→20:19)
[2017-11-10] MEDS: rOPINIRole 1 MG TABLET. PO SCH ×3 (07:47→20:19)
[2017-11-10] MEDS: DULoxetine HCL 60 MG CAPSULE.DR PO SCH (07:47)
[2017-11-10] MEDS: clonazePAM 0.5 MG TABLET PO SCH ×3 (07:47→20:20)
[2017-11-10] MEDS: POLYETHYLENE GLYCOL 3350 17 GM PACKET. PO SCH (11:30)
[2017-11-10 18:20] VITALS: BP 101/59
--- NOTE | 2017-11-10 22:15 | PDOC ---
Exam Note: Mike Note: Please also refer to the separate dictated note~for this date of service dictated separately.~Patient seen individually. Discussed the patient with Nursing staff reviewed the chart.~Reviewed interim history and current functioning. Reviewed vital signs,~Labs/ Radiology~and current medications noted below. Continue current treatment with the changes noted in the dictated addendum note Assessment: Vital Signs: Vital Signs Date Time Temp Pulse Resp B/P (MAP) Pulse Ox O2 Delivery O2 Flow Rate FiO2 11/10/17 18:20 97.8 65 18 101/59 (73) 97 11/10/17 07:31 Room Air I&O Intake and Output 11/10/17 07:00 Intake Total 840 ml Balance 840 ml Intake Oral 840 ml Current Medications: Meds: Current Medications Multi-Ingredient Ointment (Analgesic [place]) 1 cherie PRN QID PRN TP MUSCLE PAIN; Start 10/27/17 at 01:00 Clonazepam (KlonoPIN) 0.5 mg TID PO Last administered on 11/01/17at 14:03; Start 10/27/17 at 09:00; Stop 11/01/17 at 19:14; Status DC Quetiapine Fumarate (SEROquel) 12.5 mg DAILY PO Last administered on 11/05/17at 09:22; Start 10/27/17 at 09:00; Stop 11/05/17 at 20:48; Status DC Citalopram Hydrobromide (CeleXA) 30 mg DAILY PO Last administered on 10/27/17at 10:12; Start 10/27/17 at 09:00; Stop 10/27/17 at 18:35; Status DC Melatonin 3 mg PRN QHS PRN PO INSOMNIA Last administered on 11/09/17at 20:22; Start 10/27/17 at 01:15 Acetaminophen (Tylenol) 650 mg PRN Q4HRS PRN PO PAIN / TEMP Last administered on 11/10/17at 14:51; Start 10/27/17 at 01:15 Carbidopa/Levodopa (Sinemet 25/100) 1 tab TIDAC PO Last administered on at 16:11; Start 10/27/17 at 07:30; Stop 11/10/17 at 18:28; Status DC Carbidopa/Levodopa (Sinemet Cr) 1 tab.sa QHS PO Last administered on 11/09/17 20:22; Start 10/27/17 at 21:00; Stop 11/10/17 at 18:26; Status DC Loperamide HCl (Imodium) 2 mg PRN QID PRN PO DIARRHEA; Start 10/27/17 at 01:15 Ondansetron HCl (Zofran Odt) 4 mg PRN BID PRN PO NAUSEA/VOMITING Last administered on 11/02/17at 12:42; Start 10/27/17 at 01:15 Al Hydroxide/Mg Hydroxide (Mylanta Plus Xs) 30 ml PRN Q4HRS PRN PO DYSPEPSIA; Start 10/27/17 at 01:15 Magnesium Hydroxide (Milk Of Magnesia) 2,400 mg PRN DAILY PRN PO CONSTIPATION Last administered on 11/09/17 20:22; Start 10/27/17 at 01:15 Meclizine HCl (Antivert) 25 mg PRN TID PRN PO Dizziness; Start 10/27/17 at 01:15 Duloxetine HCl (Cymbalta) 30 mg DAILY PO Last administered on 10/30/17at 07:46; Start 10/28/17 at 09:00; Stop 10/31/17 at 08:59; Status DC Duloxetine HCl (Cymbalta) 60 mg DAILY PO Last administered on 11/10/17at 07:47; Start 10/31/17 at 09:00 Amlodipine Besylate (Norvasc) 5 mg 1X ONCE PO Last administered on 10/27/17 19 :58; Start 10/27/17 at 18:45; Stop 10/27/17 at 18:49; Status DC Amlodipine Besylate (Norvasc) 10 mg DAILY PO Last administered on 11/10/17at 07: 45; Start 10/28/17 at 09:00 Potassium Chloride (Klor-Con) 20 meq TID PO Last administered on 11/10/17at 20: 19; Start 10/27/17 at 21:00 Ropinirole HCl (Requip) 0.5 mg TID PO Last administered on 11/08/17at 13:11; Start 10/27/17 at 21:00; Stop 11/08/17 at 18:28; Status DC Clonazepam (KlonoPIN) 0.5 mg BID92 PO Last administered on 11/02/17at 13:21; Start 11/02/17 at 09:00; Stop 11/02/17 at 18:52; Status DC Clonazepam (KlonoPIN) 0.25 mg QHS PO Last administered on 11/08/17at 19:35; Start 11/01/17 at 21:00; Stop 11/09/17 at 07:50; Status DC Clonazepam (KlonoPIN) 0.5 mg DAILY@1400 PO ; Start 11/03/17 at 14:00; Stop at 14:00; Status DC Clonazepam (KlonoPIN) 0.25 mg DAILY PO ; Start 11/03/17 at 09:00; Stop 11/03/17 at 09:00; Status DC Clonazepam (KlonoPIN) 0.25 mg DAILY PO Last administered on 11/08/17at 08:39; Start 11/04/17 at 09:00; Stop 11/09/17 at 07:50; Status DC Clonazepam (KlonoPIN) 0.5 mg BID92 PO Last administered on 11/03/17at 12:26; Start 11/03/17 at 09:00; Stop 11/04/17 at 08:59; Status DC Clonazepam (KlonoPIN) 0.5 mg DAILY@1400 PO ; Start 11/03/17 at 14:00; Stop at 14:00; Status DC Quetiapine Fumarate (SEROquel) 12.5 mg PRN BID PRN PO ANXIETY/MOOD STABILITY Last administered on 11/05/17at 07:57; Start 11/03/17 at 10:15 Clonazepam (KlonoPIN) 0.5 mg DAILY@1400 PO Last administered on 11/08/17at 13:10 ; Start 11/04/17 at 14:00; Stop 11/08/17 at 18:44; Status DC Bisacodyl (Dulcolax Supp) 10 mg PRN DAILY PRN [place] CONSTIPATION Last administered on 11/05/17at 07:58; Start 11/05/17 at 08:00 Quetiapine Fumarate (SEROquel) 12.5 mg BID@0900,1300 PO Last administered on at 13:05; Start 11/06/17 at 09:00; Stop 11/09/17 at 18:22; Status DC Alprazolam (Xanax) 0.25 mg PRN Q2HR PRN PO ANXIETY / AGITATION Last administered on 11/09/17at 01:00; Start 11/07/17 at 09:30 Ropinirole HCl (Requip) 1 mg TID PO Last administered on 11/10/17at 20:19; Start 11/08/17 at 21:00 Clonazepam (KlonoPIN) 0.25 mg 1400 PO ; Start 11/09/17 at 14:00; Stop 11/09/17 at 14:00; Status DC Buspirone HCl (Buspar) 5 mg 0900,1300 PO Last administered on 11/10/17at 13:33; Start 11/09/17 at 09:00 Clonazepam (KlonoPIN) 0.5 mg TID PO Last administered on 11/10/17at 20:20; Start 11/09/17 at 09:00 Quetiapine Fumarate (SEROquel) 12.5 mg TID@0800,1200,1600 PO Last administered on 11/10/17at 16:09; Start 11/10/17 at 08:00 Quetiapine Fumarate (SEROquel) 12.5 mg DAILY@1800 PO Last administered on at 17:40; Start 11/10/17 at 18:00 Polyethylene Glycol (miraLAX) 17 gm DAILY PO Last administered on 11/10/17at 11: 30; Start 11/10/17 at 11:30 Carbidopa/Levodopa (Sinemet 25/100) 1 tab Q6H PO ; Start 11/11/17 at 06:00 Active Scripts Active Reported Meclizine Hcl 25 Mg Tablet 25 Mg PO PRN TID PRN Milk Of Magnesia (Magnesium Hydroxide) 2,400 Mg/10 Ml Oral.susp 2,400 Mg PO PRN DAILY PRN Maalox Advanced Suspension (Mag Hydrox/Aluminum Hyd/Simeth) 355 Ml Oral.susp 30 Ml PO PRN Q4HRS PRN Ondansetron Odt (Ondansetron) 4 Mg Tab.rapdis 4 Mg PO PRN BID PRN Imodium A-D (Loperamide HCl) 2 Mg Capsule 2 Mg PO PRN PRN Acetaminophen 325 Mg Tablet 650 Mg PO PRN Q4HRS PRN Sinemet Cr 50-200 Tablet (Carbidopa/Levodopa) 1 Each Tablet.er 1 Tab PO QHS Sinemet 25-100 Mg Tablet (Carbidopa/Levodopa) 1 Each Tablet 1 Tab PO TID AT 05/1700 Seroquel (Quetiapine Fumarate) 25 Mg Tablet 12.5 Mg PO DAILY Melatonin 5 Mg Tablet 5 Mg PO PRN QHS PRN Escitalopram Oxalate 5 Mg Tablet 15 Mg PO DAILY Clonazepam 0.5 Mg Tablet 0.5 Mg PO TID AT 01/07/1900 I have reviewed the current psychotropics carefully including drug interactions. Risk benefit ratio favors no change other than as noted in my dictated progress note. Diagnosis: Problems: (1) Mild cognitive impairment (2) Dementia in Alzheimer's disease with depression (3) Anxiety disorder (4) Major depressive disorder, recurrent episode (5) Impulse control disorder MARIAH SEAMAN MD November 10, 2017 22:14
--- NOTE | 2017-11-11 01:24 | PN ---
DATE: 11/09/2017 This late entry 11/09/2017 covers elements not covered in my initial note 11/09/2017. SUBJECTIVE: I met with the patient evening of 11/09/2017. The patient slept 7-1/4 hours, extremely anxious in the morning. During the day, the nursing staff paged me as an emergency as she was more anxious and we were planning to taper off the Klonopin. I stopped the dose reduction of Klonopin and we will reassess in a day or so. She made some vague suicidal ideation statements to the nursing staff. If her tremors do not get better, she might as well end her life. REVIEW OF SYSTEMS: Positive for the tremors, difficulty with ambulation. No CV, , pulmonary, eye system symptoms on review. MENTAL STATUS EXAM: Oriented to herself and situation. Speech coherent, has some latency. Abstraction fair, computation impaired, language function intact. Mood and affect dysphoric, anxious. LABORATORY DATA: Reviewed. 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 Rest unchanged. PLAN: Increase Seroquel to 12.5 mg four times a day. Continue rest unchanged. MARIAH SEAMAN MD DR: SONALI/giovana JOB#: [id number] / [id number]
[2017-11-11] MEDS: CARBIDOPA/LEVODOPA 25/100MG TABLET PO SCH ×3 (05:49→17:41)
[2017-11-11 06:04] VITALS: BP 119/58
[2017-11-11] MEDS: POTASSIUM CHLORIDE 20 MEQ TABLET.ER. PO SCH ×3 (08:53→21:24)
[2017-11-11] MEDS: rOPINIRole 1 MG TABLET. PO SCH ×3 (08:53→21:24)
[2017-11-11] MEDS: DULoxetine HCL 60 MG CAPSULE.DR PO SCH (08:54)
[2017-11-11] MEDS: busPIRone 5 MG TABLET. PO SCH ×2 (08:55→14:05)
[2017-11-11] MEDS: POLYETHYLENE GLYCOL 3350 17 GM PACKET. PO SCH (08:55)
[2017-11-11] MEDS: QUEtiapine 25 MG TABLET. PO SCH ×4 (08:55→17:41)
[2017-11-11] MEDS: clonazePAM 0.5 MG TABLET PO SCH ×3 (08:56→21:26)
[2017-11-11 09:27] VITALS: BP 130/62
[2017-11-11] MEDS: amLODIPine BESYLATE 10 MG TABLET PO SCH (09:28)
[2017-11-11 16:45] VITALS: BP 95/54
--- NOTE | 2017-11-11 20:17 | PDOC ---
Exam Note: Mike Note: Please also refer to the separate dictated note~for this date of service dictated separately.~Patient seen individually. Discussed the patient with Nursing staff reviewed the chart.~Reviewed interim history and current functioning. Reviewed vital signs,~Labs/ Radiology~and current medications noted below. Continue current treatment with the changes noted in the dictated addendum note Assessment: Vital Signs: Vital Signs Date Time Temp Pulse Resp B/P (MAP) Pulse Ox O2 Delivery O2 Flow Rate FiO2 11/11/17 16:45 98.1 65 20 95/54 (68) 97 Room Air I&O Intake and Output 11/11/17 07:00 Intake Total 1680 ml Balance 1680 ml Intake Oral 1680 ml Current Medications: Meds: Current Medications Multi-Ingredient Ointment (Analgesic [place]) 1 cherie PRN QID PRN TP MUSCLE PAIN; Start 10/27/17 at 01:00 Clonazepam (KlonoPIN) 0.5 mg TID PO Last administered on 11/01/17at 14:03; Start 10/27/17 at 09:00; Stop 11/01/17 at 19:14; Status DC Quetiapine Fumarate (SEROquel) 12.5 mg DAILY PO Last administered on 11/05/17at 09:22; Start 10/27/17 at 09:00; Stop 11/05/17 at 20:48; Status DC Citalopram Hydrobromide (CeleXA) 30 mg DAILY PO Last administered on 10/27/17at 10:12; Start 10/27/17 at 09:00; Stop 10/27/17 at 18:35; Status DC Melatonin 3 mg PRN QHS PRN PO INSOMNIA Last administered on 11/09/17at 20:22; Start 10/27/17 at 01:15 Acetaminophen (Tylenol) 650 mg PRN Q4HRS PRN PO PAIN / TEMP Last administered on 11/10/17at 14:51; Start 10/27/17 at 01:15 Carbidopa/Levodopa (Sinemet 25/100) 1 tab TIDAC PO Last administered on at 16:11; Start 10/27/17 at 07:30; Stop 11/10/17 at 18:28; Status DC Carbidopa/Levodopa (Sinemet Cr) 1 tab.sa QHS PO Last administered on 11/09/17 20:22; Start 10/27/17 at 21:00; Stop 11/10/17 at 18:26; Status DC Loperamide HCl (Imodium) 2 mg PRN QID PRN PO DIARRHEA; Start 10/27/17 at 01:15 Ondansetron HCl (Zofran Odt) 4 mg PRN BID PRN PO NAUSEA/VOMITING Last administered on 11/02/17 12:42; Start 10/27/17 at 01:15 Al Hydroxide/Mg Hydroxide (Mylanta Plus Xs) 30 ml PRN Q4HRS PRN PO DYSPEPSIA; Start 10/27/17 at 01:15 Magnesium Hydroxide (Milk Of Magnesia) 2,400 mg PRN DAILY PRN PO CONSTIPATION Last administered on 11/09/17 20:22; Start 10/27/17 at 01:15 Meclizine HCl (Antivert) 25 mg PRN TID PRN PO Dizziness; Start 10/27/17 at 01:15 Duloxetine HCl (Cymbalta) 30 mg DAILY PO Last administered on 10/30/17 07:46; Start 10/28/17 at 09:00; Stop 10/31/17 at 08:59; Status DC Duloxetine HCl (Cymbalta) 60 mg DAILY PO Last administered on 11/11/17 08:54; Start 10/31/17 at 09:00 Amlodipine Besylate (Norvasc) 5 mg 1X ONCE PO Last administered on 10/27/17 19 :58; Start 10/27/17 at 18:45; Stop 10/27/17 at 18:49; Status DC Amlodipine Besylate (Norvasc) 10 mg DAILY PO Last administered on 11/11/17at 09: 28; Start 10/28/17 at 09:00 Potassium Chloride (Klor-Con) 20 meq TID PO Last administered on 11/11/17 14: 05; Start 10/27/17 at 21:00 Ropinirole HCl (Requip) 0.5 mg TID PO Last administered on 11/08/17 13:11; Start 10/27/17 at 21:00; Stop 11/08/17 at 18:28; Status DC Clonazepam (KlonoPIN) 0.5 mg BID92 PO Last administered on 5/8/18at 13:21; Start 11/02/17 at 09:00; Stop 11/02/17 at 18:52; Status DC Clonazepam (KlonoPIN) 0.25 mg QHS PO Last administered on 11/08/17at 19:35; Start 11/01/17 at 21:00; Stop 11/09/17 at 07:50; Status DC Clonazepam (KlonoPIN) 0.5 mg DAILY@1400 PO ; Start 11/03/17 at 14:00; Stop at 14:00; Status DC Clonazepam (KlonoPIN) 0.25 mg DAILY PO ; Start 11/03/17 at 09:00; Stop 11/03/17 at 09:00; Status DC Clonazepam (KlonoPIN) 0.25 mg DAILY PO Last administered on 11/08/17at 08:39; Start 11/04/17 at 09:00; Stop 11/09/17 at 07:50; Status DC Clonazepam (KlonoPIN) 0.5 mg BID92 PO Last administered on 11/03/17at 12:26; Start 11/03/17 at 09:00; Stop 11/04/17 at 08:59; Status DC Clonazepam (KlonoPIN) 0.5 mg DAILY@1400 PO ; Start 11/03/17 at 14:00; Stop at 14:00; Status DC Quetiapine Fumarate (SEROquel) 12.5 mg PRN BID PRN PO ANXIETY/MOOD STABILITY Last administered on 11/05/17at 07:57; Start 11/03/17 at 10:15 Clonazepam (KlonoPIN) 0.5 mg DAILY@1400 PO Last administered on 11/08/17at 13:10 ; Start 11/04/17 at 14:00; Stop 11/08/17 at 18:44; Status DC Bisacodyl (Dulcolax Supp) 10 mg PRN DAILY PRN [place] CONSTIPATION Last administered on 11/05/17at 07:58; Start 11/05/17 at 08:00 Quetiapine Fumarate (SEROquel) 12.5 mg BID@0900,1300 PO Last administered on at 13:05; Start 11/06/17 at 09:00; Stop 11/09/17 at 18:22; Status DC Alprazolam (Xanax) 0.25 mg PRN Q2HR PRN PO ANXIETY / AGITATION Last administered on 11/09/17at 01:00; Start 11/07/17 at 09:30 Ropinirole HCl (Requip) 1 mg TID PO Last administered on 11/11/17at 14:05; Start 11/08/17 at 21:00 Clonazepam (KlonoPIN) 0.25 mg 1400 PO ; Start 11/09/17 at 14:00; Stop 11/09/17 at 14:00; Status DC Buspirone HCl (Buspar) 5 mg 0900,1300 PO Last administered on 11/11/17at 14:05; Start 11/09/17 at 09:00 Clonazepam (KlonoPIN) 0.5 mg TID PO Last administered on 11/11/17at 14:05; Start 11/09/17 at 09:00 Quetiapine Fumarate (SEROquel) 12.5 mg TID@0800,1200,1600 PO Last administered on 11/11/17at 15:42; Start 11/10/17 at 08:00 Quetiapine Fumarate (SEROquel) 12.5 mg DAILY@1800 PO Last administered on at 17:41; Start 11/10/17 at 18:00 Polyethylene Glycol (miraLAX) 17 gm DAILY PO Last administered on 11/11/17at 08: 55; Start 11/10/17 at 11:30 Carbidopa/Levodopa (Sinemet 25/100) 1 tab Q6H PO Last administered on at 17:41; Start 11/11/17 at 06:00 Active Scripts Active Reported Meclizine Hcl 25 Mg Tablet 25 Mg PO PRN TID PRN Milk Of Magnesia (Magnesium Hydroxide) 2,400 Mg/10 Ml Oral.susp 2,400 Mg PO PRN DAILY PRN Maalox Advanced Suspension (Mag Hydrox/Aluminum Hyd/Simeth) 355 Ml Oral.susp 30 Ml PO PRN Q4HRS PRN Ondansetron Odt (Ondansetron) 4 Mg Tab.rapdis 4 Mg PO PRN BID PRN Imodium A-D (Loperamide HCl) 2 Mg Capsule 2 Mg PO PRN PRN Acetaminophen 325 Mg Tablet 650 Mg PO PRN Q4HRS PRN Sinemet Cr 50-200 Tablet (Carbidopa/Levodopa) 1 Each Tablet.er 1 Tab PO QHS Sinemet 25-100 Mg Tablet (Carbidopa/Levodopa) 1 Each Tablet 1 Tab PO TID AT 05/1700 Seroquel (Quetiapine Fumarate) 25 Mg Tablet 12.5 Mg PO DAILY Melatonin 5 Mg Tablet 5 Mg PO PRN QHS PRN Escitalopram Oxalate 5 Mg Tablet 15 Mg PO DAILY Clonazepam 0.5 Mg Tablet 0.5 Mg PO TID AT 01/07/1900 I have reviewed the current psychotropics carefully including drug interactions. Risk benefit ratio favors no change other than as noted in my dictated progress note. 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
[2017-11-12] MEDS: CARBIDOPA/LEVODOPA 25/100MG TABLET PO SCH ×4 (04:29→17:41)
[2017-11-12 05:42] VITALS: BP 104/51
[2017-11-12] MEDS: QUEtiapine 25 MG TABLET. PO SCH ×4 (07:45→17:41)
[2017-11-12] MEDS: POLYETHYLENE GLYCOL 3350 17 GM PACKET. PO SCH (07:45)
[2017-11-12] MEDS: DULoxetine HCL 60 MG CAPSULE.DR PO SCH (07:45)
[2017-11-12] MEDS: busPIRone 5 MG TABLET. PO SCH ×2 (07:46→12:36)
[2017-11-12] MEDS: rOPINIRole 1 MG TABLET. PO SCH ×3 (07:46→19:48)
[2017-11-12] MEDS: POTASSIUM CHLORIDE 20 MEQ TABLET.ER. PO SCH ×3 (07:46→19:48)
[2017-11-12] MEDS: clonazePAM 0.5 MG TABLET PO SCH ×3 (07:47→19:48)
[2017-11-12] MEDS: amLODIPine BESYLATE 10 MG TABLET PO SCH (07:47)
[2017-11-12] MEDS: ALPRAZolam 0.25 MG TABLET PO PRN ×2 (08:59→16:07)
[2017-11-12 16:20] VITALS: BP 112/53
--- NOTE | 2017-11-13 02:54 | PN ---
DATE: 11/10/2017 This late entry 11/10/2017 covers elements not covered in my initial note 11/10/2017. SUBJECTIVE: I met with the patient in the evening staffed at a treatment team meeting with the entire team and the patient's daughter, Iris, attended the treatment team meeting. The patient is sleeping about 8-1/2 hours. Appetite 85%. Constipated, received milk of mag, MiraLax. Daughter informed us that she has been accepted at [facility] in [facility]. Also discussed the patient with Dr. Crowell and Dr. Crowell is considering changing the extended release Sinemet to immediate release more frequently given to help with her symptoms. REVIEW OF SYSTEMS: Positive for ongoing tremors. No CV, , pulmonary, eye system symptoms on review. MENTAL STATUS EXAM: Oriented to herself and situation. Speech is coherent, has some latency. Abstraction fair, computation impaired, language function intact. Mood and affect remain somewhat anxious. LABORATORY DATA: Reviewed. IMPRESSION: Unchanged from initial note. PLAN: Continue current psychotropics. Anxiety seems better. MAN Yeni SEAMAN MD DR: SONALI/giovana JOB#: [id number] / [id number]
--- NOTE | 2017-11-13 02:55 | PN ---
DATE: 11/11/2017 This late entry 11/11/2017 covers elements not covered in my initial note 11/11/2017. SUBJECTIVE: I met with the patient in the evening. The patient is doing a little better, less anxious, less tremulous with the immediate release Sinemet, slept 8 hours previous evening. REVIEW OF SYSTEMS: Ambulation impaired, but less tremulous. No CV, , pulmonary, eye system symptoms on review. MENTAL STATUS EXAM: Reasonably oriented to place and situation. Speech has some latency, coherent, often responses monosyllabic. Abstraction fair, computation impaired, language function intact. Mood and affect still dysphoric, anxious, but improved. IMPRESSION: Unchanged from initial note. PLAN: No change from initial note. MAN Yeni SEAMAN MD DR: SONALI/giovana JOB#: [id number] / [id number]
[2017-11-13] MEDS: CARBIDOPA/LEVODOPA 25/100MG TABLET PO SCH ×6 (05:20→19:45)
[2017-11-13] MEDS: ALPRAZolam 0.25 MG TABLET PO PRN ×2 (05:21→09:54)
[2017-11-13 06:09] VITALS: BP 106/57
[2017-11-13 07:48] LABS: BASO % 1 % (0-3); EOS # 0.1 x10^3/uL (0.0-0.7); EOS % 1 % (0-3); HEMATOCRIT 33.2 % (36.0-47.0); HEMOGLOBIN 11.5 g/dL (12.0-15.5); LYMPH # 1.1 x10^3/uL (1.0-4.8); LYMPH % 21 % (24-48); MEAN CORPUSCULAR HEMOGLOBIN 33 pg (25-35); MEAN CORPUSCULAR HGB CONC 35 g/dL (31-37); MEAN CORPUSCULAR VOLUME 96 fL (79-100); MONO # 0.4 x10^3/uL (0.0-1.1); MONO % 7 % (0-9); NEUT # 3.7 x10^3uL (1.8-7.7); NEUT % 71 % (31-73); PLATELET COUNT 252 x10^3/uL (140-400); RED BLOOD COUNT 3.44 x10^6/uL (3.50-5.40); RED CELL DISTRIBUTION WIDTH 14.8 % (11.5-14.5); WHITE BLOOD COUNT 5.3 x10^3/uL (4.0-11.0)
[2017-11-13] MEDS: POLYETHYLENE GLYCOL 3350 17 GM PACKET. PO SCH (08:11)
[2017-11-13] MEDS: DULoxetine HCL 60 MG CAPSULE.DR PO SCH (08:12)
[2017-11-13] MEDS: amLODIPine BESYLATE 10 MG TABLET PO SCH (08:12)
[2017-11-13] MEDS: busPIRone 5 MG TABLET. PO SCH ×2 (08:12→15:00)
[2017-11-13] MEDS: rOPINIRole 1 MG TABLET. PO SCH ×3 (08:13→19:46)
[2017-11-13] MEDS: QUEtiapine 25 MG TABLET. PO SCH ×4 (08:13→18:00)
[2017-11-13] MEDS: POTASSIUM CHLORIDE 20 MEQ TABLET.ER. PO SCH ×3 (08:13→19:46)
[2017-11-13] MEDS: clonazePAM 0.5 MG TABLET PO SCH ×3 (08:16→19:47)
[2017-11-13 08:27] LABS: ALBUMIN 3.3 g/dL (3.4-5.0); ALBUMIN/GLOBULIN RATIO 0.9 (1.0-1.7); CALCIUM 9.1 mg/dL (8.5-10.1); CREATININE 0.7 mg/dL (0.6-1.0); GFR 82.7; POTASSIUM 4.6 mmol/L (3.5-5.1); TOTAL BILIRUBIN 0.4 mg/dL (0.2-1.0); TOTAL PROTEIN 7.1 g/dL (6.4-8.2)
[2017-11-13 16:36] VITALS: BP 111/54
--- NOTE | 2017-11-13 22:43 | PDOC ---
Exam Note: Mike Note: Late entry for date of service November 12, 2017. Please also refer to the separate dictated note~for this date of service dictated separately.~Patient seen individually. Discussed the patient with Nursing staff reviewed the chart.~ Reviewed interim history and current functioning. Reviewed vital signs,~Labs/ Radiology~and current medications noted below. Continue current treatment with the changes noted in the dictated addendum note Assessment: Vital Signs: VS - Last 72 Hours, by Label Date Time Temp Pulse Resp B/P (MAP) Pulse Ox O2 Delivery O2 Flow Rate FiO2 11/13/17 16:36 97.6 61 18 111/54 (73) 98 11/13/17 08:12 68 106/57 11/13/17 06:09 97.5 68 14 106/57 (73) 98 11/12/17 16:20 97.4 65 18 112/53 (72) 97 11/12/17 07:47 64 104/51 11/12/17 05:42 98.0 64 18 104/51 (68) 97 11/11/17 16:45 98.1 65 20 95/54 (68) 97 Room Air 11/11/17 09:28 73 130/62 11/11/17 09:27 73 130/62 (84) Room Air 11/11/17 06:04 97.4 65 18 119/58 (78) 98 Vital Signs Date Time Temp Pulse Resp B/P (MAP) Pulse Ox O2 Delivery O2 Flow Rate FiO2 11/13/17 16:36 97.6 61 18 111/54 (73) 98 11/11/17 16:45 Room Air I&O Intake and Output 11/13/17 07:00 Intake Total 1560 ml Balance 1560 ml Intake Oral 1560 ml Labs: Laboratory Tests Test 11/13/17 06:55 White Blood Count 5.3 x10^3/uL (4.0-11.0) Red Blood Count 3.44 x10^6/uL (3.50-5.40) L Hemoglobin 11.5 g/dL (12.0-15.5) L Hematocrit 33.2 % (36.0-47.0) L Mean Corpuscular Volume 96 fL (79-100) Mean Corpuscular Hemoglobin 33 pg (25-35) Mean Corpuscular Hemoglobin Concent 35 g/dL (31-37) Red Cell Distribution Width 14.8 % (11.5-14.5) H Platelet Count 252 x10^3/uL (140-400) Neutrophils (%) (Auto) 71 % (31-73) Lymphocytes (%) (Auto) 21 % (24-48) L Monocytes (%) (Auto) 7 % (0-9) Eosinophils (%) (Auto) 1 % (0-3) Basophils (%) (Auto) 1 % (0-3) Neutrophils # (Auto) 3.7 x10^3uL (1.8-7.7) Lymphocytes # (Auto) 1.1 x10^3/uL (1.0-4.8) Monocytes # (Auto) 0.4 x10^3/uL (0.0-1.1) Eosinophils # (Auto) 0.1 x10^3/uL (0.0-0.7) Basophils # (Auto) 0.0 x10^3/uL (0.0-0.2) Sodium Level 142 mmol/L (136-145) Potassium Level 4.6 mmol/L (3.5-5.1) Chloride Level 105 mmol/L (98-107) Carbon Dioxide Level 31 mmol/L (21-32) Anion Gap 6 (6-14) Blood Urea Nitrogen 16 mg/dL (7-20) Creatinine 0.7 mg/dL (0.6-1.0) Estimated GFR (Cockcroft-Gault) 82.7 BUN/Creatinine Ratio 23 (6-20) H Glucose Level 83 mg/dL (70-99) Calcium Level 9.1 mg/dL (8.5-10.1) Total Bilirubin 0.4 mg/dL (0.2-1.0) Aspartate Amino Transferase (AST) 13 U/L (15-37) L Alanine Aminotransferase (ALT) 7 U/L (14-59) L Alkaline Phosphatase 65 U/L (46-116) Total Protein 7.1 g/dL (6.4-8.2) Albumin 3.3 g/dL (3.4-5.0) L Albumin/Globulin Ratio 0.9 (1.0-1.7) L Current Medications: Meds: Current Medications Multi-Ingredient Ointment (Analgesic [place]) 1 cherie PRN QID PRN TP MUSCLE PAIN; Start 10/27/17 at 01:00 Clonazepam (KlonoPIN) 0.5 mg TID PO Last administered on 11/01/17 14:03; Start 10/27/17 at 09:00; Stop 11/01/17 at 19:14; Status DC Quetiapine Fumarate (SEROquel) 12.5 mg DAILY PO Last administered on 11/05/17at 09:22; Start 10/27/17 at 09:00; Stop 11/05/17 at 20:48; Status DC Citalopram Hydrobromide (CeleXA) 30 mg DAILY PO Last administered on 10/27/17at 10:12; Start 10/27/17 at 09:00; Stop 10/27/17 at 18:35; Status DC Melatonin 3 mg PRN QHS PRN PO INSOMNIA Last administered on 11/09/17 20:22; Start 10/27/17 at 01:15 Acetaminophen (Tylenol) 650 mg PRN Q4HRS PRN PO PAIN / TEMP Last administered on 11/10/17at 14:51; Start 10/27/17 at 01:15 Carbidopa/Levodopa (Sinemet 25/100) 1 tab TIDAC PO Last administered on 16:11; Start 10/27/17 at 07:30; Stop 11/10/17 at 18:28; Status DC Carbidopa/Levodopa (Sinemet Cr) 1 tab.sa QHS PO Last administered on 11/09/17 20:22; Start 10/27/17 at 21:00; Stop 11/10/17 at 18:26; Status DC Loperamide HCl (Imodium) 2 mg PRN QID PRN PO DIARRHEA; Start 10/27/17 at 01:15 Ondansetron HCl (Zofran Odt) 4 mg PRN BID PRN PO NAUSEA/VOMITING Last administered on 11/02/17 12:42; Start 10/27/17 at 01:15 Al Hydroxide/Mg Hydroxide (Mylanta Plus Xs) 30 ml PRN Q4HRS PRN PO DYSPEPSIA; Start 10/27/17 at 01:15 Magnesium Hydroxide (Milk Of Magnesia) 2,400 mg PRN DAILY PRN PO CONSTIPATION Last administered on 11/09/17at 20:22; Start 10/27/17 at 01:15 Meclizine HCl (Antivert) 25 mg PRN TID PRN PO Dizziness; Start 10/27/17 at 01:15 Duloxetine HCl (Cymbalta) 30 mg DAILY PO Last administered on 10/30/17 07:46; Start 10/28/17 at 09:00; Stop 10/31/17 at 08:59; Status DC Duloxetine HCl (Cymbalta) 60 mg DAILY PO Last administered on 11/13/17at 08:12; Start 10/31/17 at 09:00 Amlodipine Besylate (Norvasc) 5 mg 1X ONCE PO Last administered on 10/27/17 19 :58; Start 10/27/17 at 18:45; Stop 10/27/17 at 18:49; Status DC Amlodipine Besylate (Norvasc) 10 mg DAILY PO Last administered on 11/11/17at 09: 28; Start 10/28/17 at 09:00 Potassium Chloride (Klor-Con) 20 meq TID PO Last administered on 11/13/17at 19: 46; Start 10/27/17 at 21:00 Ropinirole HCl (Requip) 0.5 mg TID PO Last administered on 11/08/17 13:11; Start 10/27/17 at 21:00; Stop 11/08/17 at 18:28; Status DC Clonazepam (KlonoPIN) 0.5 mg BID92 PO Last administered on 11/02/17at 13:21; Start 11/02/17 at 09:00; Stop 11/02/17 at 18:52; Status DC Clonazepam (KlonoPIN) 0.25 mg QHS PO Last administered on 11/08/17at 19:35; Start 11/01/17 at 21:00; Stop 11/09/17 at 07:50; Status DC Clonazepam (KlonoPIN) 0.5 mg DAILY@1400 PO ; Start 11/03/17 at 14:00; Stop at 14:00; Status DC Clonazepam (KlonoPIN) 0.25 mg DAILY PO ; Start 11/03/17 at 09:00; Stop 11/03/17 at 09:00; Status DC Clonazepam (KlonoPIN) 0.25 mg DAILY PO Last administered on 11/08/17at 08:39; Start 11/04/17 at 09:00; Stop 11/09/17 at 07:50; Status DC Clonazepam (KlonoPIN) 0.5 mg BID92 PO Last administered on 11/03/17at 12:26; Start 11/03/17 at 09:00; Stop 11/04/17 at 08:59; Status DC Clonazepam (KlonoPIN) 0.5 mg DAILY@1400 PO ; Start 11/03/17 at 14:00; Stop at 14:00; Status DC Quetiapine Fumarate (SEROquel) 12.5 mg PRN BID PRN PO ANXIETY/MOOD STABILITY Last administered on 11/05/17at 07:57; Start 11/03/17 at 10:15 Clonazepam (KlonoPIN) 0.5 mg DAILY@1400 PO Last administered on 11/08/17at 13:10 ; Start 11/04/17 at 14:00; Stop 11/08/17 at 18:44; Status DC Bisacodyl (Dulcolax Supp) 10 mg PRN DAILY PRN DC CONSTIPATION Last administered on 11/05/17at 07:58; Start 11/05/17 at 08:00 Quetiapine Fumarate (SEROquel) 12.5 mg BID@0900,1300 PO Last administered on at 13:05; Start 11/06/17 at 09:00; Stop 11/09/17 at 18:22; Status DC Alprazolam (Xanax) 0.25 mg PRN Q2HR PRN PO ANXIETY / AGITATION Last administered on 11/13/17at 09:54; Start 11/07/17 at 09:30 Ropinirole HCl (Requip) 1 mg TID PO Last administered on 11/13/17at 19:46; Start 11/08/17 at 21:00 Clonazepam (KlonoPIN) 0.25 mg 1400 PO ; Start 11/09/17 at 14:00; Stop 11/09/17 at 14:00; Status DC Buspirone HCl (Buspar) 5 mg 0900,1300 PO Last administered on 11/13/17at 15:00; Start 11/09/17 at 09:00 Clonazepam (KlonoPIN) 0.5 mg TID PO Last administered on 11/13/17at 19:47; Start 11/09/17 at 09:00 Quetiapine Fumarate (SEROquel) 12.5 mg TID@0800,1200,1600 PO Last administered on 11/13/17at 16:00; Start 11/10/17 at 08:00 Quetiapine Fumarate (SEROquel) 12.5 mg DAILY@1800 PO Last administered on at 18:00; Start 11/10/17 at 18:00; Stop 11/13/17 at 19:38; Status DC Polyethylene Glycol (miraLAX) 17 gm DAILY PO Last administered on 11/13/17at 08: 11; Start 11/10/17 at 11:30 Carbidopa/Levodopa (Sinemet 25/100) 1 tab Q6H PO Last administered on at 08:13; Start 11/11/17 at 06:00; Stop 11/13/17 at 15:51; Status DC Carbidopa/Levodopa (Sinemet 25/100) 1 tab 6XDAY PO Last administered on at 19:45; Start 11/13/17 at 16:00 Quetiapine Fumarate (SEROquel) 12.5 mg HS PO ; Start 11/14/17 at 21:00 Active Scripts Active Reported Meclizine Hcl 25 Mg Tablet 25 Mg PO PRN TID PRN Milk Of Magnesia (Magnesium Hydroxide) 2,400 Mg/10 Ml Oral.susp 2,400 Mg PO PRN DAILY PRN Maalox Advanced Suspension (Mag Hydrox/Aluminum Hyd/Simeth) 355 Ml Oral.susp 30 Ml PO PRN Q4HRS PRN Ondansetron Odt (Ondansetron) 4 Mg Tab.rapdis 4 Mg PO PRN BID PRN Imodium A-D (Loperamide HCl) 2 Mg Capsule 2 Mg PO PRN PRN Acetaminophen 325 Mg Tablet 650 Mg PO PRN Q4HRS PRN Sinemet Cr 50-200 Tablet (Carbidopa/Levodopa) 1 Each Tablet.er 1 Tab PO QHS Sinemet 25-100 Mg Tablet (Carbidopa/Levodopa) 1 Each Tablet 1 Tab PO TID AT 1700 Seroquel (Quetiapine Fumarate) 25 Mg Tablet 12.5 Mg PO DAILY Melatonin 5 Mg Tablet 5 Mg PO PRN QHS PRN Escitalopram Oxalate 5 Mg Tablet 15 Mg PO DAILY Clonazepam 0.5 Mg Tablet 0.5 Mg PO TID AT 01/07/1900 I have reviewed the current psychotropics carefully including drug interactions. Risk benefit ratio favors no change other than as noted in my dictated progress note. Diagnosis: Problems: (1) Mild cognitive impairment (2) Dementia in Alzheimer's disease with depression (3) Anxiety disorder (4) Major depressive disorder, recurrent episode (5) Impulse control disorder MARIAH SEAMAN MD November 13, 2017 22:43
--- NOTE | 2017-11-13 23:15 | PDOC ---
Exam Note: Mike Note: Please also refer to the separate dictated note~for this date of service dictated separately.~Patient seen individually. Discussed the patient with Nursing staff reviewed the chart.~Reviewed interim history and current functioning. Reviewed vital signs,~Labs/ Radiology~and current medications noted below. Continue current treatment with the changes noted in the dictated addendum note Assessment: Vital Signs: Vital Signs Date Time Temp Pulse Resp B/P (MAP) Pulse Ox O2 Delivery O2 Flow Rate FiO2 11/13/17 16:36 97.6 61 18 111/54 (73) 98 11/11/17 16:45 Room Air I&O Intake and Output 11/13/17 07:00 Intake Total 1560 ml Balance 1560 ml Intake Oral 1560 ml Labs: Laboratory Tests Test 11/13/17 06:55 White Blood Count 5.3 x10^3/uL (4.0-11.0) Red Blood Count 3.44 x10^6/uL (3.50-5.40) L Hemoglobin 11.5 g/dL (12.0-15.5) L Hematocrit 33.2 % (36.0-47.0) L Mean Corpuscular Volume 96 fL (79-100) Mean Corpuscular Hemoglobin 33 pg (25-35) Mean Corpuscular Hemoglobin Concent 35 g/dL (31-37) Red Cell Distribution Width 14.8 % (11.5-14.5) H Platelet Count 252 x10^3/uL (140-400) Neutrophils (%) (Auto) 71 % (31-73) Lymphocytes (%) (Auto) 21 % (24-48) L Monocytes (%) (Auto) 7 % (0-9) Eosinophils (%) (Auto) 1 % (0-3) Basophils (%) (Auto) 1 % (0-3) Neutrophils # (Auto) 3.7 x10^3uL (1.8-7.7) Lymphocytes # (Auto) 1.1 x10^3/uL (1.0-4.8) Monocytes # (Auto) 0.4 x10^3/uL (0.0-1.1) Eosinophils # (Auto) 0.1 x10^3/uL (0.0-0.7) Basophils # (Auto) 0.0 x10^3/uL (0.0-0.2) Sodium Level 142 mmol/L (136-145) Potassium Level 4.6 mmol/L (3.5-5.1) Chloride Level 105 mmol/L (98-107) Carbon Dioxide Level 31 mmol/L (21-32) Anion Gap 6 (6-14) Blood Urea Nitrogen 16 mg/dL (7-20) Creatinine 0.7 mg/dL (0.6-1.0) Estimated GFR (Cockcroft-Gault) 82.7 BUN/Creatinine Ratio 23 (6-20) H Glucose Level 83 mg/dL (70-99) Calcium Level 9.1 mg/dL (8.5-10.1) Total Bilirubin 0.4 mg/dL (0.2-1.0) Aspartate Amino Transferase (AST) 13 U/L (15-37) L Alanine Aminotransferase (ALT) 7 U/L (14-59) L Alkaline Phosphatase 65 U/L (46-116) Total Protein 7.1 g/dL (6.4-8.2) Albumin 3.3 g/dL (3.4-5.0) L Albumin/Globulin Ratio 0.9 (1.0-1.7) L Current Medications: Meds: Current Medications Multi-Ingredient Ointment (Analgesic [place]) 1 cherie PRN QID PRN TP MUSCLE PAIN; Start 10/27/17 at 01:00 Clonazepam (KlonoPIN) 0.5 mg TID PO Last administered on 11/01/17at 14:03; Start 10/27/17 at 09:00; Stop 11/01/17 at 19:14; Status DC Quetiapine Fumarate (SEROquel) 12.5 mg DAILY PO Last administered on 11/05/17at 09:22; Start 10/27/17 at 09:00; Stop 11/05/17 at 20:48; Status DC Citalopram Hydrobromide (CeleXA) 30 mg DAILY PO Last administered on 10/27/17at 10:12; Start 10/27/17 at 09:00; Stop 10/27/17 at 18:35; Status DC Melatonin 3 mg PRN QHS PRN PO INSOMNIA Last administered on 11/09/17at 20:22; Start 10/27/17 at 01:15 Acetaminophen (Tylenol) 650 mg PRN Q4HRS PRN PO PAIN / TEMP Last administered on 11/10/17 14:51; Start 10/27/17 at 01:15 Carbidopa/Levodopa (Sinemet 25/100) 1 tab TIDAC PO Last administered on at 16:11; Start 10/27/17 at 07:30; Stop 11/10/17 at 18:28; Status DC Carbidopa/Levodopa (Sinemet Cr) 1 tab.sa QHS PO Last administered on 11/09/17at 20:22; Start 10/27/17 at 21:00; Stop 11/10/17 at 18:26; Status DC Loperamide HCl (Imodium) 2 mg PRN QID PRN PO DIARRHEA; Start 10/27/17 at 01:15 Ondansetron HCl (Zofran Odt) 4 mg PRN BID PRN PO NAUSEA/VOMITING Last administered on 11/02/17 12:42; Start 10/27/17 at 01:15 Al Hydroxide/Mg Hydroxide (Mylanta Plus Xs) 30 ml PRN Q4HRS PRN PO DYSPEPSIA; Start 10/27/17 at 01:15 Magnesium Hydroxide (Milk Of Magnesia) 2,400 mg PRN DAILY PRN PO CONSTIPATION Last administered on 11/09/17 20:22; Start 10/27/17 at 01:15 Meclizine HCl (Antivert) 25 mg PRN TID PRN PO Dizziness; Start 10/27/17 at 01:15 Duloxetine HCl (Cymbalta) 30 mg DAILY PO Last administered on 10/30/17at 07:46; Start 10/28/17 at 09:00; Stop 10/31/17 at 08:59; Status DC Duloxetine HCl (Cymbalta) 60 mg DAILY PO Last administered on 11/13/17at 08:12; Start 10/31/17 at 09:00 Amlodipine Besylate (Norvasc) 5 mg 1X ONCE PO Last administered on 10/27/17at 19 :58; Start 10/27/17 at 18:45; Stop 10/27/17 at 18:49; Status DC Amlodipine Besylate (Norvasc) 10 mg DAILY PO Last administered on 11/11/17at 09: 28; Start 10/28/17 at 09:00 Potassium Chloride (Klor-Con) 20 meq TID PO Last administered on 11/13/17at 19: 46; Start 10/27/17 at 21:00 Ropinirole HCl (Requip) 0.5 mg TID PO Last administered on 11/08/17at 13:11; Start 10/27/17 at 21:00; Stop 11/08/17 at 18:28; Status DC Clonazepam (KlonoPIN) 0.5 mg BID92 PO Last administered on 11/02/17at 13:21; Start 11/02/17 at 09:00; Stop 11/02/17 at 18:52; Status DC Clonazepam (KlonoPIN) 0.25 mg QHS PO Last administered on 11/08/17at 19:35; Start 11/01/17 at 21:00; Stop 11/09/17 at 07:50; Status DC Clonazepam (KlonoPIN) 0.5 mg DAILY@1400 PO ; Start 11/03/17 at 14:00; Stop at 14:00; Status DC Clonazepam (KlonoPIN) 0.25 mg DAILY PO ; Start 11/03/17 at 09:00; Stop 11/03/17 at 09:00; Status DC Clonazepam (KlonoPIN) 0.25 mg DAILY PO Last administered on 11/08/17at 08:39; Start 11/04/17 at 09:00; Stop 11/09/17 at 07:50; Status DC Clonazepam (KlonoPIN) 0.5 mg BID92 PO Last administered on 11/03/17at 12:26; Start 11/03/17 at 09:00; Stop 11/04/17 at 08:59; Status DC Clonazepam (KlonoPIN) 0.5 mg DAILY@1400 PO ; Start 11/03/17 at 14:00; Stop at 14:00; Status DC Quetiapine Fumarate (SEROquel) 12.5 mg PRN BID PRN PO ANXIETY/MOOD STABILITY Last administered on 11/05/17at 07:57; Start 11/03/17 at 10:15 Clonazepam (KlonoPIN) 0.5 mg DAILY@1400 PO Last administered on 11/08/17at 13:10 ; Start 11/04/17 at 14:00; Stop 11/08/17 at 18:44; Status DC Bisacodyl (Dulcolax Supp) 10 mg PRN DAILY PRN AR CONSTIPATION Last administered on 11/05/17at 07:58; Start 11/05/17 at 08:00 Quetiapine Fumarate (SEROquel) 12.5 mg BID@0900,1300 PO Last administered on at 13:05; Start 11/06/17 at 09:00; Stop 11/09/17 at 18:22; Status DC Alprazolam (Xanax) 0.25 mg PRN Q2HR PRN PO ANXIETY / AGITATION Last administered on 11/13/17at 09:54; Start 11/07/17 at 09:30 Ropinirole HCl (Requip) 1 mg TID PO Last administered on 11/13/17at 19:46; Start 11/08/17 at 21:00 Clonazepam (KlonoPIN) 0.25 mg 1400 PO ; Start 11/09/17 at 14:00; Stop 11/09/17 at 14:00; Status DC Buspirone HCl (Buspar) 5 mg 0900,1300 PO Last administered on 11/13/17at 15:00; Start 11/09/17 at 09:00 Clonazepam (KlonoPIN) 0.5 mg TID PO Last administered on 11/13/17at 19:47; Start 11/09/17 at 09:00 Quetiapine Fumarate (SEROquel) 12.5 mg TID@0800,1200,1600 PO Last administered on 11/13/17at 16:00; Start 11/10/17 at 08:00 Quetiapine Fumarate (SEROquel) 12.5 mg DAILY@1800 PO Last administered on at 18:00; Start 11/10/17 at 18:00; Stop 11/13/17 at 19:38; Status DC Polyethylene Glycol (miraLAX) 17 gm DAILY PO Last administered on 11/13/17at 08: 11; Start 11/10/17 at 11:30 Carbidopa/Levodopa (Sinemet 25/100) 1 tab Q6H PO Last administered on at 08:13; Start 11/11/17 at 06:00; Stop 11/13/17 at 15:51; Status DC Carbidopa/Levodopa (Sinemet 25/100) 1 tab 6XDAY PO Last administered on at 19:45; Start 11/13/17 at 16:00 Quetiapine Fumarate (SEROquel) 12.5 mg HS PO ; Start 11/14/17 at 21:00 Active Scripts Active Reported Meclizine Hcl 25 Mg Tablet 25 Mg PO PRN TID PRN Milk Of Magnesia (Magnesium Hydroxide) 2,400 Mg/10 Ml Oral.susp 2,400 Mg PO PRN DAILY PRN Maalox Advanced Suspension (Mag Hydrox/Aluminum Hyd/Simeth) 355 Ml Oral.susp 30 Ml PO PRN Q4HRS PRN Ondansetron Odt (Ondansetron) 4 Mg Tab.rapdis 4 Mg PO PRN BID PRN Imodium A-D (Loperamide HCl) 2 Mg Capsule 2 Mg PO PRN PRN Acetaminophen 325 Mg Tablet 650 Mg PO PRN Q4HRS PRN Sinemet Cr 50-200 Tablet (Carbidopa/Levodopa) 1 Each Tablet.er 1 Tab PO QHS Sinemet 25-100 Mg Tablet (Carbidopa/Levodopa) 1 Each Tablet 1 Tab PO TID AT 0 Seroquel (Quetiapine Fumarate) 25 Mg Tablet 12.5 Mg PO DAILY Melatonin 5 Mg Tablet 5 Mg PO PRN QHS PRN Escitalopram Oxalate 5 Mg Tablet 15 Mg PO DAILY Clonazepam 0.5 Mg Tablet 0.5 Mg PO TID AT 01/07/1900 I have reviewed the current psychotropics carefully including drug interactions. Risk benefit ratio favors no change other than as noted in my dictated progress note. Diagnosis: Problems: (1) Mild cognitive impairment (2) Dementia in Alzheimer's disease with depression (3) Anxiety disorder (4) Major depressive disorder, recurrent episode (5) Impulse control disorder MARIAH SEAMAN MD November 13, 2017 23:15
[2017-11-14] MEDS: CARBIDOPA/LEVODOPA 25/100MG TABLET PO SCH ×6 (05:45→21:10)
[2017-11-14 06:01] VITALS: BP 95/62
[2017-11-14] MEDS: amLODIPine BESYLATE 10 MG TABLET PO SCH (09:00)
[2017-11-14] MEDS: QUEtiapine 25 MG TABLET. PO SCH ×4 (09:38→21:10)
[2017-11-14] MEDS: POLYETHYLENE GLYCOL 3350 17 GM PACKET. PO SCH (09:38)
[2017-11-14] MEDS: rOPINIRole 1 MG TABLET. PO SCH ×3 (09:38→21:09)
[2017-11-14] MEDS: busPIRone 5 MG TABLET. PO SCH ×2 (09:39→13:15)
[2017-11-14] MEDS: POTASSIUM CHLORIDE 20 MEQ TABLET.ER. PO SCH ×3 (09:39→21:09)
[2017-11-14] MEDS: DULoxetine HCL 60 MG CAPSULE.DR PO SCH (09:39)
[2017-11-14] MEDS: clonazePAM 0.5 MG TABLET PO SCH ×3 (09:41→21:10)
[2017-11-14 15:39] VITALS: BP 106/58
[2017-11-14] MEDS: ACETAMINOPHEN 325 MG TABLET PO PRN (18:41)
--- NOTE | 2017-11-14 20:46 | PDOC ---
Exam Note: Mike Note: Please also refer to the separate dictated note~for this date of service dictated separately.~Patient seen individually. Discussed the patient with Nursing staff reviewed the chart.~Reviewed interim history and current functioning. Reviewed vital signs,~Labs/ Radiology~and current medications noted below. Continue current treatment with the changes noted in the dictated addendum note Assessment: Vital Signs: Vital Signs Date Time Temp Pulse Resp B/P (MAP) Pulse Ox O2 Delivery O2 Flow Rate FiO2 11/14/17 15:39 98.4 71 16 106/58 (74) 99 11/11/17 16:45 Room Air I&O Intake and Output 11/14/17 07:00 Intake Total 1440 ml Balance 1440 ml Intake Oral 1440 ml Current Medications: Meds: Current Medications Multi-Ingredient Ointment (Analgesic [place]) 1 cherie PRN QID PRN TP MUSCLE PAIN; Start 10/27/17 at 01:00 Clonazepam (KlonoPIN) 0.5 mg TID PO Last administered on 11/01/17at 14:03; Start 10/27/17 at 09:00; Stop 11/01/17 at 19:14; Status DC Quetiapine Fumarate (SEROquel) 12.5 mg DAILY PO Last administered on 11/05/17at 09:22; Start 10/27/17 at 09:00; Stop 11/05/17 at 20:48; Status DC Citalopram Hydrobromide (CeleXA) 30 mg DAILY PO Last administered on 10/27/17at 10:12; Start 10/27/17 at 09:00; Stop 10/27/17 at 18:35; Status DC Melatonin 3 mg PRN QHS PRN PO INSOMNIA Last administered on 11/09/17at 20:22; Start 10/27/17 at 01:15 Acetaminophen (Tylenol) 650 mg PRN Q4HRS PRN PO PAIN / TEMP Last administered on 11/14/17at 18:41; Start 10/27/17 at 01:15 Carbidopa/Levodopa (Sinemet 25/100) 1 tab TIDAC PO Last administered on at 16:11; Start 10/27/17 at 07:30; Stop 11/10/17 at 18:28; Status DC Carbidopa/Levodopa (Sinemet Cr) 1 tab.sa QHS PO Last administered on 11/09/17 20:22; Start 10/27/17 at 21:00; Stop 11/10/17 at 18:26; Status DC Loperamide HCl (Imodium) 2 mg PRN QID PRN PO DIARRHEA; Start 10/27/17 at 01:15 Ondansetron HCl (Zofran Odt) 4 mg PRN BID PRN PO NAUSEA/VOMITING Last administered on 11/02/17at 12:42; Start 10/27/17 at 01:15 Al Hydroxide/Mg Hydroxide (Mylanta Plus Xs) 30 ml PRN Q4HRS PRN PO DYSPEPSIA; Start 10/27/17 at 01:15 Magnesium Hydroxide (Milk Of Magnesia) 2,400 mg PRN DAILY PRN PO CONSTIPATION Last administered on 11/09/17 20:22; Start 10/27/17 at 01:15 Meclizine HCl (Antivert) 25 mg PRN TID PRN PO Dizziness; Start 10/27/17 at 01:15 Duloxetine HCl (Cymbalta) 30 mg DAILY PO Last administered on 10/30/17at 07:46; Start 10/28/17 at 09:00; Stop 10/31/17 at 08:59; Status DC Duloxetine HCl (Cymbalta) 60 mg DAILY PO Last administered on 11/14/17at 09:39; Start 10/31/17 at 09:00 Amlodipine Besylate (Norvasc) 5 mg 1X ONCE PO Last administered on 10/27/17 19 :58; Start 10/27/17 at 18:45; Stop 10/27/17 at 18:49; Status DC Amlodipine Besylate (Norvasc) 10 mg DAILY PO Last administered on 11/11/17at 09: 28; Start 10/28/17 at 09:00 Potassium Chloride (Klor-Con) 20 meq TID PO Last administered on 11/14/17 13: 15; Start 10/27/17 at 21:00 Ropinirole HCl (Requip) 0.5 mg TID PO Last administered on 11/08/17 13:11; Start 10/27/17 at 21:00; Stop 11/08/17 at 18:28; Status DC Clonazepam (KlonoPIN) 0.5 mg BID92 PO Last administered on 11/02/17at 13:21; Start 11/02/17 at 09:00; Stop 11/02/17 at 18:52; Status DC Clonazepam (KlonoPIN) 0.25 mg QHS PO Last administered on 11/08/17at 19:35; Start 11/01/17 at 21:00; Stop 11/09/17 at 07:50; Status DC Clonazepam (KlonoPIN) 0.5 mg DAILY@1400 PO ; Start 11/03/17 at 14:00; Stop at 14:00; Status DC Clonazepam (KlonoPIN) 0.25 mg DAILY PO ; Start 11/03/17 at 09:00; Stop 11/03/17 at 09:00; Status DC Clonazepam (KlonoPIN) 0.25 mg DAILY PO Last administered on 11/08/17at 08:39; Start 11/04/17 at 09:00; Stop 11/09/17 at 07:50; Status DC Clonazepam (KlonoPIN) 0.5 mg BID92 PO Last administered on 11/03/17at 12:26; Start 11/03/17 at 09:00; Stop 11/04/17 at 08:59; Status DC Clonazepam (KlonoPIN) 0.5 mg DAILY@1400 PO ; Start 11/03/17 at 14:00; Stop at 14:00; Status DC Quetiapine Fumarate (SEROquel) 12.5 mg PRN BID PRN PO ANXIETY/MOOD STABILITY Last administered on 11/05/17at 07:57; Start 11/03/17 at 10:15 Clonazepam (KlonoPIN) 0.5 mg DAILY@1400 PO Last administered on 11/08/17at 13:10 ; Start 11/04/17 at 14:00; Stop 11/08/17 at 18:44; Status DC Bisacodyl (Dulcolax Supp) 10 mg PRN DAILY PRN [place] CONSTIPATION Last administered on 11/05/17at 07:58; Start 11/05/17 at 08:00 Quetiapine Fumarate (SEROquel) 12.5 mg BID@0900,1300 PO Last administered on at 13:05; Start 11/06/17 at 09:00; Stop 11/09/17 at 18:22; Status DC Alprazolam (Xanax) 0.25 mg PRN Q2HR PRN PO ANXIETY / AGITATION Last administered on 11/13/17at 09:54; Start 11/07/17 at 09:30 Ropinirole HCl (Requip) 1 mg TID PO Last administered on 11/14/17 13:16; Start 11/08/17 at 21:00 Clonazepam (KlonoPIN) 0.25 mg 1400 PO ; Start 11/09/17 at 14:00; Stop 11/09/17 at 14:00; Status DC Buspirone HCl (Buspar) 5 mg 0900,1300 PO Last administered on 11/14/17 13:15; Start 11/09/17 at 09:00 Clonazepam (KlonoPIN) 0.5 mg TID PO Last administered on 11/14/17at 13:15; Start 11/09/17 at 09:00 Quetiapine Fumarate (SEROquel) 12.5 mg TID@0800,1200,1600 PO Last administered on 11/14/17at 16:04; Start 11/10/17 at 08:00 Quetiapine Fumarate (SEROquel) 12.5 mg DAILY@1800 PO Last administered on at 18:00; Start 11/10/17 at 18:00; Stop 11/13/17 at 19:38; Status DC Polyethylene Glycol (miraLAX) 17 gm DAILY PO Last administered on 11/14/17at 09: 38; Start 11/10/17 at 11:30 Carbidopa/Levodopa (Sinemet 25/100) 1 tab Q6H PO Last administered on at 08:13; Start 11/11/17 at 06:00; Stop 11/13/17 at 15:51; Status DC Carbidopa/Levodopa (Sinemet 25/100) 1 tab 6XDAY PO Last administered on at 18:41; Start 11/13/17 at 16:00 Quetiapine Fumarate (SEROquel) 12.5 mg HS PO ; Start 11/14/17 at 21:00 Active Scripts Active Reported Meclizine Hcl 25 Mg Tablet 25 Mg PO PRN TID PRN Milk Of Magnesia (Magnesium Hydroxide) 2,400 Mg/10 Ml Oral.susp 2,400 Mg PO PRN DAILY PRN Maalox Advanced Suspension (Mag Hydrox/Aluminum Hyd/Simeth) 355 Ml Oral.susp 30 Ml PO PRN Q4HRS PRN Ondansetron Odt (Ondansetron) 4 Mg Tab.rapdis 4 Mg PO PRN BID PRN Imodium A-D (Loperamide HCl) 2 Mg Capsule 2 Mg PO PRN PRN Acetaminophen 325 Mg Tablet 650 Mg PO PRN Q4HRS PRN Sinemet Cr 50-200 Tablet (Carbidopa/Levodopa) 1 Each Tablet.er 1 Tab PO QHS Sinemet 25-100 Mg Tablet (Carbidopa/Levodopa) 1 Each Tablet 1 Tab PO TID AT 0 Seroquel (Quetiapine Fumarate) 25 Mg Tablet 12.5 Mg PO DAILY Melatonin 5 Mg Tablet 5 Mg PO PRN QHS PRN Escitalopram Oxalate 5 Mg Tablet 15 Mg PO DAILY Clonazepam 0.5 Mg Tablet 0.5 Mg PO TID AT 01/07/1900 I have reviewed the current psychotropics carefully including drug interactions. Risk benefit ratio favors no change other than as noted in my dictated progress note. Diagnosis: Problems: (1) Mild cognitive impairment (2) Dementia in Alzheimer's disease with depression (3) Anxiety disorder (4) Major depressive disorder, recurrent episode (5) Impulse control disorder MARIAH SEAMAN MD November 14, 2017 20:46
--- NOTE | 2017-11-14 21:14 | PN ---
DATE: 11/12/2017 PSYCHIATRIC PROGRESS NOTE This late entry 11/12/2017 covers elements not covered in my initial note 11/12/2017. SUBJECTIVE: I met with the patient in the evening. The patient has been quite anxious, tremulous, believe she needs her Sinemet increased. We will defer to Dr. Crowell/neurology. REVIEW OF SYSTEMS: Ambulation impaired with walker. No CV, , pulmonary, eye, ENT system symptoms on review. MENTAL STATUS EXAM: Oriented to herself and situation. Speech is coherent, has some latency. Abstraction fair, computation impaired, language function intact. Mood and affect still somewhat anxious and she is tremulous at times. LABORATORIES: Reviewed. IMPRESSION: Unchanged from initial note. PLAN: Continue current psychotropics including Seroquel, Cymbalta, Klonopin, BuSpar and melatonin. MAN Yeni SEAMAN MD DR: SONALI/giovana JOB#: [id number] / [id number]
[2017-11-15 06:10] VITALS: BP 103/56
[2017-11-15] MEDS: CARBIDOPA/LEVODOPA 25/100MG TABLET PO SCH ×6 (06:35→20:31)
[2017-11-15] MEDS: POLYETHYLENE GLYCOL 3350 17 GM PACKET. PO SCH (08:55)
[2017-11-15] MEDS: QUEtiapine 25 MG TABLET. PO SCH ×4 (08:57→20:28)
[2017-11-15] MEDS: rOPINIRole 1 MG TABLET. PO SCH ×3 (08:57→20:27)
[2017-11-15] MEDS: amLODIPine BESYLATE 10 MG TABLET PO SCH (08:59)
[2017-11-15] MEDS: clonazePAM 0.5 MG TABLET PO SCH ×3 (08:59→20:31)
[2017-11-15] MEDS: busPIRone 5 MG TABLET. PO SCH ×2 (09:00→12:19)
[2017-11-15] MEDS: POTASSIUM CHLORIDE 20 MEQ TABLET.ER. PO SCH ×3 (09:00→20:27)
[2017-11-15] MEDS: DULoxetine HCL 60 MG CAPSULE.DR PO SCH (09:00)
[2017-11-15 09:13] VITALS: BP 129/76
--- NOTE | 2017-11-15 12:50 | PN ---
DATE: 11/13/2017 PSYCHIATRIC PROGRESS NOTE This late entry 11/13/2017 covers elements not covered in my initial note 11/13/2017. SUBJECTIVE: I met with the patient in the evening. The patient complains of tremors. Dr. Crowell is adjusting her Sinemet immediate release to every 3 hours. She gets anxious as the tremors worsen. REVIEW OF SYSTEMS: Other than this, ambulation impaired. No CV, , pulmonary, eye system symptoms on review. MENTAL STATUS EXAM: Reasonably oriented. Speech is coherent, has some latency, low in volume. Abstraction fair, computation impaired, language function intact, attention span short. Mood and affect still somewhat dysphoric, anxious, but showing improvement. LABORATORIES: Reviewed. IMPRESSION: Unchanged from initial note. PLAN: Continue current psychotropics, change the 1800 Seroquel to bedtime since she gets the earlier dosage at 1600. Defer management of Parkinson's to Dr. Crowell. MARIAH SEAMAN MD DR: SONALI/giovana JOB#: [id number] / [id number]
--- NOTE | 2017-11-15 14:19 | PN ---
DATE: 11/14/2017 PSYCHIATRIC PROGRESS NOTE This note covers elements not covered in my initial note 11/14/2017. SUBJECTIVE: I met with the patient the evening of 11/14/2017. The patient slept 6-1/4 hours. She has been anxious and fairly dramatic, per nursing report writing down the name of she is not happy with. Dr. Crowell has changed to every 3 hours, which is being helpful. REVIEW OF SYSTEMS: Ambulation impaired with walker. Complains of tremors which are better. Some anxiety. No CV, , pulmonary, eye system symptoms on review. MENTAL STATUS EXAM: Oriented to herself and situation. Speech has some latency, low in volume, coherent, abstraction fair, computation impaired, language function intact, attention span short. Mood and affect still withdrawn, showing improvement. No suicidal ideation. LABORATORY DATA: Reviewed. IMPRESSION: Major depressive disorder in partial remission; anxiety disorder, unspecified. PLAN: No change in psychotropics from initial note. MARIAH SEAMAN MD DR: SONALI/giovana JOB#: [id number] / [id number]
[2017-11-15 16:18] VITALS: BP 93/51
--- NOTE | 2017-11-15 20:43 | PDOC ---
Exam Note: Mike Note: Please also refer to the separate dictated note~for this date of service dictated separately.~Patient seen individually. Discussed the patient with Nursing staff reviewed the chart.~Reviewed interim history and current functioning. Reviewed vital signs,~Labs/ Radiology~and current medications noted below. Continue current treatment with the changes noted in the dictated addendum note Assessment: Vital Signs: Vital Signs Date Time Temp Pulse Resp B/P (MAP) Pulse Ox O2 Delivery O2 Flow Rate FiO2 11/15/17 16:18 97.7 68 16 93/51 (65) 96 11/11/17 16:45 Room Air I&O Intake and Output 11/15/17 07:00 Intake Total 1680 ml Balance 1680 ml Intake Oral 1680 ml # Bowel Movements 1 Current Medications: Meds: Current Medications Multi-Ingredient Ointment (Analgesic [place]) 1 cherie PRN QID PRN TP MUSCLE PAIN; Start 10/27/17 at 01:00 Clonazepam (KlonoPIN) 0.5 mg TID PO Last administered on 11/01/17at 14:03; Start 10/27/17 at 09:00; Stop 11/01/17 at 19:14; Status DC Quetiapine Fumarate (SEROquel) 12.5 mg DAILY PO Last administered on 11/05/17at 09:22; Start 10/27/17 at 09:00; Stop 11/05/17 at 20:48; Status DC Citalopram Hydrobromide (CeleXA) 30 mg DAILY PO Last administered on 10/27/17at 10:12; Start 10/27/17 at 09:00; Stop 10/27/17 at 18:35; Status DC Melatonin 3 mg PRN QHS PRN PO INSOMNIA Last administered on 11/09/17at 20:22; Start 10/27/17 at 01:15 Acetaminophen (Tylenol) 650 mg PRN Q4HRS PRN PO PAIN / TEMP Last administered on 11/14/17at 18:41; Start 10/27/17 at 01:15 Carbidopa/Levodopa (Sinemet 25/100) 1 tab TIDAC PO Last administered on at 16:11; Start 10/27/17 at 07:30; Stop 11/10/17 at 18:28; Status DC Carbidopa/Levodopa (Sinemet Cr) 1 tab.sa QHS PO Last administered on 11/09/17 20:22; Start 10/27/17 at 21:00; Stop 11/10/17 at 18:26; Status DC Loperamide HCl (Imodium) 2 mg PRN QID PRN PO DIARRHEA; Start 10/27/17 at 01:15 Ondansetron HCl (Zofran Odt) 4 mg PRN BID PRN PO NAUSEA/VOMITING Last administered on 11/02/17 12:42; Start 10/27/17 at 01:15 Al Hydroxide/Mg Hydroxide (Mylanta Plus Xs) 30 ml PRN Q4HRS PRN PO DYSPEPSIA; Start 10/27/17 at 01:15 Magnesium Hydroxide (Milk Of Magnesia) 2,400 mg PRN DAILY PRN PO CONSTIPATION Last administered on 11/09/17 20:22; Start 10/27/17 at 01:15 Meclizine HCl (Antivert) 25 mg PRN TID PRN PO Dizziness; Start 10/27/17 at 01:15 Duloxetine HCl (Cymbalta) 30 mg DAILY PO Last administered on 10/30/17 07:46; Start 10/28/17 at 09:00; Stop 10/31/17 at 08:59; Status DC Duloxetine HCl (Cymbalta) 60 mg DAILY PO Last administered on 11/15/17at 09:00; Start 10/31/17 at 09:00 Amlodipine Besylate (Norvasc) 5 mg 1X ONCE PO Last administered on 10/27/17 19 :58; Start 10/27/17 at 18:45; Stop 10/27/17 at 18:49; Status DC Amlodipine Besylate (Norvasc) 10 mg DAILY PO Last administered on 11/15/17at 08: 59; Start 10/28/17 at 09:00 Potassium Chloride (Klor-Con) 20 meq TID PO Last administered on 11/15/17at 20: 27; Start 10/27/17 at 21:00 Ropinirole HCl (Requip) 0.5 mg TID PO Last administered on 11/08/17at 13:11; Start 10/27/17 at 21:00; Stop 11/08/17 at 18:28; Status DC Clonazepam (KlonoPIN) 0.5 mg BID92 PO Last administered on 11/02/17at 13:21; Start 11/02/17 at 09:00; Stop 11/02/17 at 18:52; Status DC Clonazepam (KlonoPIN) 0.25 mg QHS PO Last administered on 11/08/17at 19:35; Start 11/01/17 at 21:00; Stop 11/09/17 at 07:50; Status DC Clonazepam (KlonoPIN) 0.5 mg DAILY@1400 PO ; Start 11/03/17 at 14:00; Stop at 14:00; Status DC Clonazepam (KlonoPIN) 0.25 mg DAILY PO ; Start 11/03/17 at 09:00; Stop 11/03/17 at 09:00; Status DC Clonazepam (KlonoPIN) 0.25 mg DAILY PO Last administered on 11/08/17at 08:39; Start 11/04/17 at 09:00; Stop 11/09/17 at 07:50; Status DC Clonazepam (KlonoPIN) 0.5 mg BID92 PO Last administered on 11/03/17at 12:26; Start 11/03/17 at 09:00; Stop 11/04/17 at 08:59; Status DC Clonazepam (KlonoPIN) 0.5 mg DAILY@1400 PO ; Start 11/03/17 at 14:00; Stop at 14:00; Status DC Quetiapine Fumarate (SEROquel) 12.5 mg PRN BID PRN PO ANXIETY/MOOD STABILITY Last administered on 11/05/17at 07:57; Start 11/03/17 at 10:15 Clonazepam (KlonoPIN) 0.5 mg DAILY@1400 PO Last administered on 11/08/17at 13:10 ; Start 11/04/17 at 14:00; Stop 11/08/17 at 18:44; Status DC Bisacodyl (Dulcolax Supp) 10 mg PRN DAILY PRN [place] CONSTIPATION Last administered on 11/05/17at 07:58; Start 11/05/17 at 08:00 Quetiapine Fumarate (SEROquel) 12.5 mg BID@0900,1300 PO Last administered on at 13:05; Start 11/06/17 at 09:00; Stop 11/09/17 at 18:22; Status DC Alprazolam (Xanax) 0.25 mg PRN Q2HR PRN PO ANXIETY / AGITATION Last administered on 11/13/17 09:54; Start 11/07/17 at 09:30 Ropinirole HCl (Requip) 1 mg TID PO Last administered on 11/15/17 20:27; Start 11/08/17 at 21:00 Clonazepam (KlonoPIN) 0.25 mg 1400 PO ; Start 11/09/17 at 14:00; Stop 11/09/17 at 14:00; Status DC Buspirone HCl (Buspar) 5 mg 0900,1300 PO Last administered on 11/15/17 12:19; Start 11/09/17 at 09:00 Clonazepam (KlonoPIN) 0.5 mg TID PO Last administered on 11/15/17 20:31; Start 11/09/17 at 09:00 Quetiapine Fumarate (SEROquel) 12.5 mg TID@0800,1200,1600 PO Last administered on 11/15/17 16:46; Start 11/10/17 at 08:00 Quetiapine Fumarate (SEROquel) 12.5 mg DAILY@1800 PO Last administered on at 18:00; Start 11/10/17 at 18:00; Stop 11/13/17 at 19:38; Status DC Polyethylene Glycol (miraLAX) 17 gm DAILY PO Last administered on 11/15/17 08: 55; Start 11/10/17 at 11:30 Carbidopa/Levodopa (Sinemet 25/100) 1 tab Q6H PO Last administered on at 08:13; Start 11/11/17 at 06:00; Stop 11/13/17 at 15:51; Status DC Carbidopa/Levodopa (Sinemet 25/100) 1 tab 6XDAY PO Last administered on 20:31; Start 11/13/17 at 16:00 Quetiapine Fumarate (SEROquel) 12.5 mg HS PO Last administered on 11/15/17 20: 28; Start 11/14/17 at 21:00 Active Scripts Active Reported Meclizine Hcl 25 Mg Tablet 25 Mg PO PRN TID PRN Milk Of Magnesia (Magnesium Hydroxide) 2,400 Mg/10 Ml Oral.susp 2,400 Mg PO PRN DAILY PRN Maalox Advanced Suspension (Mag Hydrox/Aluminum Hyd/Simeth) 355 Ml Oral.susp 30 Ml PO PRN Q4HRS PRN Ondansetron Odt (Ondansetron) 4 Mg Tab.rapdis 4 Mg PO PRN BID PRN Imodium A-D (Loperamide HCl) 2 Mg Capsule 2 Mg PO PRN PRN Acetaminophen 325 Mg Tablet 650 Mg PO PRN Q4HRS PRN Sinemet Cr 50-200 Tablet (Carbidopa/Levodopa) 1 Each Tablet.er 1 Tab PO QHS Sinemet 25-100 Mg Tablet (Carbidopa/Levodopa) 1 Each Tablet 1 Tab PO TID AT 05/1700 Seroquel (Quetiapine Fumarate) 25 Mg Tablet 12.5 Mg PO DAILY Melatonin 5 Mg Tablet 5 Mg PO PRN QHS PRN Escitalopram Oxalate 5 Mg Tablet 15 Mg PO DAILY Clonazepam 0.5 Mg Tablet 0.5 Mg PO TID AT 01/07/1900 I have reviewed the current psychotropics carefully including drug interactions. Risk benefit ratio favors no change other than as noted in my dictated progress note. Diagnosis: Problems: (1) Mild cognitive impairment (2) Dementia in Alzheimer's disease with depression (3) Anxiety disorder (4) Major depressive disorder, recurrent episode (5) Impulse control disorder MARIAH SEAMAN MD November 15, 2017 20:43
[2017-11-16] MEDS: CARBIDOPA/LEVODOPA 25/100MG TABLET PO SCH ×6 (05:53→22:46)
[2017-11-16 08:11] VITALS: BP 131/65
[2017-11-16] MEDS: rOPINIRole 1 MG TABLET. PO SCH ×3 (08:17→19:25)
[2017-11-16] MEDS: amLODIPine BESYLATE 10 MG TABLET PO SCH (08:18)
[2017-11-16] MEDS: POTASSIUM CHLORIDE 20 MEQ TABLET.ER. PO SCH ×3 (08:18→19:25)
[2017-11-16] MEDS: POLYETHYLENE GLYCOL 3350 17 GM PACKET. PO SCH (08:19)
[2017-11-16] MEDS: QUEtiapine 25 MG TABLET. PO SCH ×3 (08:19→16:06)
[2017-11-16] MEDS: busPIRone 5 MG TABLET. PO SCH ×2 (08:19→13:16)
[2017-11-16] MEDS: DULoxetine HCL 60 MG CAPSULE.DR PO SCH (08:19)
[2017-11-16] MEDS: clonazePAM 0.5 MG TABLET PO SCH ×3 (08:21→19:25)
[2017-11-16 16:41] VITALS: BP 107/56
[2017-11-16] MEDS: MELATONIN 3 MG TABLET PO PRN (19:35)
--- NOTE | 2017-11-16 20:28 | PN ---
DATE: 11/15/2017 SUBJECTIVE: The patient was seen today, met with the staff, chart reviewed. The patient continues to complain of having tremors of her both upper and lower extremities. The patient is also having difficulty with sleep, feeling nervous all the time. OBSERVATION: VITAL SIGNS: Temperature 98.0, blood pressure 103/56, pulse 69, respirations 14, and O2 sat 98%. Slept about 8 hours last night. MEDICATIONS: The patient's medications reviewed. Currently on Seroquel, Celexa, and also Klonopin. The patient is also on Sinemet. The patient is also on BuSpar 5 mg b.i.d. She is also on ____ 5 mg b.i.d., Xanax 0.25 mg q.2 hours p.r.n. The patient is on Cymbalta 60 mg daily. She is also on ____ and potassium chloride. The patient is also on melatonin 3 mg at night p.r.n. for sleep. The patient apparently had been seeing Dr. Crowell for the tremors. The patient is still having some mood swings, irritability, but no major behavior problems. No major side effects. ASSESSMENT: Major depression, recurrent, without psychotic features. PLAN: Continue with meds. ARABELLA FERMIN MD DR: JAYCE/giovana JOB#: [id number] / [id number]
[2017-11-16] MEDS ORDERED: QUEtiapine 25 MG TABLET. PO SCH (21:00)
[2017-11-17] MEDS: QUEtiapine 25 MG TABLET. PO SCH ×4 (06:13→17:29)
[2017-11-17] MEDS: CARBIDOPA/LEVODOPA 25/100MG TABLET PO SCH ×6 (06:13→19:35)
[2017-11-17 06:33] VITALS: BP 130/58
[2017-11-17] MEDS: POLYETHYLENE GLYCOL 3350 17 GM PACKET. PO SCH (08:04)
[2017-11-17] MEDS: rOPINIRole 1 MG TABLET. PO SCH ×3 (08:04→19:35)
[2017-11-17] MEDS: DULoxetine HCL 60 MG CAPSULE.DR PO SCH (08:05)
[2017-11-17] MEDS: busPIRone 5 MG TABLET. PO SCH ×2 (08:05→13:32)
[2017-11-17] MEDS: POTASSIUM CHLORIDE 20 MEQ TABLET.ER. PO SCH ×3 (08:05→19:35)
[2017-11-17] MEDS: amLODIPine BESYLATE 10 MG TABLET PO SCH (08:05)
[2017-11-17] MEDS: clonazePAM 0.5 MG TABLET PO SCH ×3 (08:07→19:34)
[2017-11-17 16:28] VITALS: BP 93/50
[2017-11-17] MEDS: MELATONIN 3 MG TABLET PO PRN (19:38)
[2017-11-17] MEDS: ACETAMINOPHEN 325 MG TABLET PO PRN (19:49)
--- NOTE | 2017-11-17 19:56 | PDOC ---
Exam Note: Mike Note: Late entry for date of service November 16, 2017. Please also refer to the separate dictated note~for this date of service dictated separately.~Patient seen individually. Discussed the patient with Nursing staff reviewed the chart.~ Reviewed interim history and current functioning. Reviewed vital signs,~Labs/ Radiology~and current medications noted below. Continue current treatment with the changes noted in the dictated addendum note Assessment: Vital Signs: VS - Last 72 Hours, by Label Date Time Temp Pulse Resp B/P (MAP) Pulse Ox O2 Delivery O2 Flow Rate FiO2 11/17/17 16:28 98.3 75 18 93/50 (64) 98 11/17/17 08:05 63 130/58 11/17/17 06:33 97.6 63 18 130/58 (82) 99 11/16/17 16:41 97.6 75 16 107/56 (73) 98 Room Air 11/16/17 08:18 76 131/65 11/16/17 08:11 97.0 76 18 131/65 (87) 99 11/15/17 16:18 97.7 68 16 93/51 (65) 96 11/15/17 09:13 76 129/76 (93) 11/15/17 08:59 76 129/76 11/15/17 06:10 98.0 69 14 103/56 (72) 98 Vital Signs Date Time Temp Pulse Resp B/P (MAP) Pulse Ox O2 Delivery O2 Flow Rate FiO2 11/17/17 16:28 98.3 75 18 93/50 (64) 98 11/16/17 16:41 Room Air I&O Intake and Output 11/17/17 07:00 Intake Total 1200 ml Balance 1200 ml Intake Oral 1200 ml Current Medications: Meds: Current Medications Multi-Ingredient Ointment (Analgesic [place]) 1 cherie PRN QID PRN TP MUSCLE PAIN; Start 10/27/17 at 01:00 Clonazepam (KlonoPIN) 0.5 mg TID PO Last administered on 11/01/17at 14:03; Start 10/27/17 at 09:00; Stop 11/01/17 at 19:14; Status DC Quetiapine Fumarate (SEROquel) 12.5 mg DAILY PO Last administered on 11/05/17at 09:22; Start 10/27/17 at 09:00; Stop 11/05/17 at 20:48; Status DC Citalopram Hydrobromide (CeleXA) 30 mg DAILY PO Last administered on 10/27/17 10:12; Start 10/27/17 at 09:00; Stop 10/27/17 at 18:35; Status DC Melatonin 3 mg PRN QHS PRN PO INSOMNIA Last administered on 11/17/17at 19:38; Start 10/27/17 at 01:15 Acetaminophen (Tylenol) 650 mg PRN Q4HRS PRN PO PAIN / TEMP Last administered on 11/17/17 19:49; Start 10/27/17 at 01:15 Carbidopa/Levodopa (Sinemet 25/100) 1 tab TIDAC PO Last administered on 16:11; Start 10/27/17 at 07:30; Stop 11/10/17 at 18:28; Status DC Carbidopa/Levodopa (Sinemet Cr) 1 tab.sa QHS PO Last administered on 11/09/17 20:22; Start 10/27/17 at 21:00; Stop 11/10/17 at 18:26; Status DC Loperamide HCl (Imodium) 2 mg PRN QID PRN PO DIARRHEA; Start 10/27/17 at 01:15 Ondansetron HCl (Zofran Odt) 4 mg PRN BID PRN PO NAUSEA/VOMITING Last administered on 11/02/17at 12:42; Start 10/27/17 at 01:15 Al Hydroxide/Mg Hydroxide (Mylanta Plus Xs) 30 ml PRN Q4HRS PRN PO DYSPEPSIA; Start 10/27/17 at 01:15 Magnesium Hydroxide (Milk Of Magnesia) 2,400 mg PRN DAILY PRN PO CONSTIPATION Last administered on 11/09/17 20:22; Start 10/27/17 at 01:15 Meclizine HCl (Antivert) 25 mg PRN TID PRN PO Dizziness; Start 10/27/17 at 01:15 Duloxetine HCl (Cymbalta) 30 mg DAILY PO Last administered on 10/30/17at 07:46; Start 10/28/17 at 09:00; Stop 10/31/17 at 08:59; Status DC Duloxetine HCl (Cymbalta) 60 mg DAILY PO Last administered on 11/17/17 08:05; Start 10/31/17 at 09:00 Amlodipine Besylate (Norvasc) 5 mg 1X ONCE PO Last administered on 10/27/17 19 :58; Start 10/27/17 at 18:45; Stop 10/27/17 at 18:49; Status DC Amlodipine Besylate (Norvasc) 10 mg DAILY PO Last administered on 11/17/17 08: 05; Start 10/28/17 at 09:00 Potassium Chloride (Klor-Con) 20 meq TID PO Last administered on 11/17/17 19: 35; Start 10/27/17 at 21:00 Ropinirole HCl (Requip) 0.5 mg TID PO Last administered on 11/08/17 13:11; Start 10/27/17 at 21:00; Stop 11/08/17 at 18:28; Status DC Clonazepam (KlonoPIN) 0.5 mg BID92 PO Last administered on 11/02/17at 13:21; Start 11/02/17 at 09:00; Stop 11/02/17 at 18:52; Status DC Clonazepam (KlonoPIN) 0.25 mg QHS PO Last administered on 11/08/17at 19:35; Start 11/01/17 at 21:00; Stop 11/09/17 at 07:50; Status DC Clonazepam (KlonoPIN) 0.5 mg DAILY@1400 PO ; Start 11/03/17 at 14:00; Stop at 14:00; Status DC Clonazepam (KlonoPIN) 0.25 mg DAILY PO ; Start 11/03/17 at 09:00; Stop 11/03/17 at 09:00; Status DC Clonazepam (KlonoPIN) 0.25 mg DAILY PO Last administered on 11/08/17at 08:39; Start 11/04/17 at 09:00; Stop 11/09/17 at 07:50; Status DC Clonazepam (KlonoPIN) 0.5 mg BID92 PO Last administered on 11/03/17at 12:26; Start 11/03/17 at 09:00; Stop 11/04/17 at 08:59; Status DC Clonazepam (KlonoPIN) 0.5 mg DAILY@1400 PO ; Start 11/03/17 at 14:00; Stop at 14:00; Status DC Quetiapine Fumarate (SEROquel) 12.5 mg PRN BID PRN PO ANXIETY/MOOD STABILITY Last administered on 11/05/17at 07:57; Start 11/03/17 at 10:15 Clonazepam (KlonoPIN) 0.5 mg DAILY@1400 PO Last administered on 11/08/17at 13:10 ; Start 11/04/17 at 14:00; Stop 11/08/17 at 18:44; Status DC Bisacodyl (Dulcolax Supp) [address] CONSTIPATION Last administered on 11/05/17at 07:58; Start 11/05/17 at 08:00 Quetiapine Fumarate (SEROquel) 12.5 mg BID@0900,1300 PO Last administered on at 13:05; Start 11/06/17 at 09:00; Stop 11/09/17 at 18:22; Status DC Alprazolam (Xanax) 0.25 mg PRN Q2HR PRN PO ANXIETY / AGITATION Last administered on 11/13/17at 09:54; Start 11/07/17 at 09:30 Ropinirole HCl (Requip) 1 mg TID PO Last administered on 11/17/17at 19:35; Start 11/08/17 at 21:00 Clonazepam (KlonoPIN) 0.25 mg 1400 PO ; Start 11/09/17 at 14:00; Stop 11/09/17 at 14:00; Status DC Buspirone HCl (Buspar) 5 mg 0900,1300 PO Last administered on 11/17/17at 13:32; Start 11/09/17 at 09:00 Clonazepam (KlonoPIN) 0.5 mg TID PO Last administered on 11/17/17at 19:34; Start 11/09/17 at 09:00 Quetiapine Fumarate (SEROquel) 12.5 mg TID@0800,1200,1600 PO Last administered on 11/16/17at 16:06; Start 11/10/17 at 08:00; Stop 11/16/17 at 18:13; Status DC Quetiapine Fumarate (SEROquel) 12.5 mg DAILY@1800 PO Last administered on at 18:00; Start 11/10/17 at 18:00; Stop 11/13/17 at 19:38; Status DC Polyethylene Glycol (miraLAX) 17 gm DAILY PO Last administered on 11/17/17at 08: 04; Start 11/10/17 at 11:30 Carbidopa/Levodopa (Sinemet 25/100) 1 tab Q6H PO Last administered on at 08:13; Start 11/11/17 at 06:00; Stop 11/13/17 at 15:51; Status DC Carbidopa/Levodopa (Sinemet 25/100) 1 tab 6XDAY PO Last administered on at 19:35; Start 11/13/17 at 16:00 Quetiapine Fumarate (SEROquel) 12.5 mg HS PO Last administered on 11/15/17at 20: 28; Start 11/14/17 at 21:00; Stop 11/16/17 at 18:13; Status DC Quetiapine Fumarate (SEROquel) 12.5 mg QID PO ; Start 11/16/17 at 21:00; Stop at 21:00; Status DC Quetiapine Fumarate (SEROquel) 12.5 mg 0700,1200,1400,1700 PO Last administered on 11/17/17at 17:29; Start 11/17/17 at 07:00 Active Scripts Active Reported Meclizine Hcl 25 Mg Tablet 25 Mg PO PRN TID PRN Milk Of Magnesia (Magnesium Hydroxide) 2,400 Mg/10 Ml Oral.susp 2,400 Mg PO PRN DAILY PRN Maalox Advanced Suspension (Mag Hydrox/Aluminum Hyd/Simeth) 355 Ml Oral.susp 30 Ml PO PRN Q4HRS PRN Ondansetron Odt (Ondansetron) 4 Mg Tab.rapdis 4 Mg PO PRN BID PRN Imodium A-D (Loperamide HCl) 2 Mg Capsule 2 Mg PO PRN PRN Acetaminophen 325 Mg Tablet 650 Mg PO PRN Q4HRS PRN Sinemet Cr 50-200 Tablet (Carbidopa/Levodopa) 1 Each Tablet.er 1 Tab PO QHS Sinemet 25-100 Mg Tablet (Carbidopa/Levodopa) 1 Each Tablet 1 Tab PO TID AT 05/1700 Seroquel (Quetiapine Fumarate) 25 Mg Tablet 12.5 Mg PO DAILY Melatonin 5 Mg Tablet 5 Mg PO PRN QHS PRN Escitalopram Oxalate 5 Mg Tablet 15 Mg PO DAILY Clonazepam 0.5 Mg Tablet 0.5 Mg PO TID AT 01/07/1900 I have reviewed the current psychotropics carefully including drug interactions. Risk benefit ratio favors no change other than as noted in my dictated progress note. Diagnosis: Problems: (1) Mild cognitive impairment (2) Dementia in Alzheimer's disease with depression (3) Anxiety disorder (4) Major depressive disorder, recurrent episode (5) Impulse control disorder MARIAH SEAMAN MD November 17, 2017 19:56
--- NOTE | 2017-11-17 20:31 | PDOC ---
Exam Note: Mike Note: Please also refer to the separate dictated note~for this date of service dictated separately.~Patient seen individually. Discussed the patient with Nursing staff reviewed the chart.~Reviewed interim history and current functioning. Reviewed vital signs,~Labs/ Radiology~and current medications noted below. Continue current treatment with the changes noted in the dictated addendum note Assessment: Vital Signs: Vital Signs Date Time Temp Pulse Resp B/P (MAP) Pulse Ox O2 Delivery O2 Flow Rate FiO2 11/17/17 16:28 98.3 75 18 93/50 (64) 98 11/16/17 16:41 Room Air I&O Intake and Output 11/17/17 07:00 Intake Total 1200 ml Balance 1200 ml Intake Oral 1200 ml Current Medications: Meds: Current Medications Multi-Ingredient Ointment (Analgesic [place]) 1 cherie PRN QID PRN TP MUSCLE PAIN; Start 10/27/17 at 01:00 Clonazepam (KlonoPIN) 0.5 mg TID PO Last administered on 11/01/17at 14:03; Start 10/27/17 at 09:00; Stop 11/01/17 at 19:14; Status DC Quetiapine Fumarate (SEROquel) 12.5 mg DAILY PO Last administered on 11/05/17at 09:22; Start 10/27/17 at 09:00; Stop 11/05/17 at 20:48; Status DC Citalopram Hydrobromide (CeleXA) 30 mg DAILY PO Last administered on 10/27/17at 10:12; Start 10/27/17 at 09:00; Stop 10/27/17 at 18:35; Status DC Melatonin 3 mg PRN QHS PRN PO INSOMNIA Last administered on 11/17/17at 19:38; Start 10/27/17 at 01:15 Acetaminophen (Tylenol) 650 mg PRN Q4HRS PRN PO PAIN / TEMP Last administered on 11/17/17at 19:49; Start 10/27/17 at 01:15 Carbidopa/Levodopa (Sinemet 25/100) 1 tab TIDAC PO Last administered on at 16:11; Start 10/27/17 at 07:30; Stop 11/10/17 at 18:28; Status DC Carbidopa/Levodopa (Sinemet Cr) 1 tab.sa QHS PO Last administered on 11/09/17 20:22; Start 10/27/17 at 21:00; Stop 11/10/17 at 18:26; Status DC Loperamide HCl (Imodium) 2 mg PRN QID PRN PO DIARRHEA; Start 10/27/17 at 01:15 Ondansetron HCl (Zofran Odt) 4 mg PRN BID PRN PO NAUSEA/VOMITING Last administered on 11/02/17at 12:42; Start 10/27/17 at 01:15 Al Hydroxide/Mg Hydroxide (Mylanta Plus Xs) 30 ml PRN Q4HRS PRN PO DYSPEPSIA; Start 10/27/17 at 01:15 Magnesium Hydroxide (Milk Of Magnesia) 2,400 mg PRN DAILY PRN PO CONSTIPATION Last administered on 11/09/17at 20:22; Start 10/27/17 at 01:15 Meclizine HCl (Antivert) 25 mg PRN TID PRN PO Dizziness; Start 10/27/17 at 01:15 Duloxetine HCl (Cymbalta) 30 mg DAILY PO Last administered on 10/30/17at 07:46; Start 10/28/17 at 09:00; Stop 10/31/17 at 08:59; Status DC Duloxetine HCl (Cymbalta) 60 mg DAILY PO Last administered on 11/17/17at 08:05; Start 10/31/17 at 09:00 Amlodipine Besylate (Norvasc) 5 mg 1X ONCE PO Last administered on 10/27/17at 19 :58; Start 10/27/17 at 18:45; Stop 10/27/17 at 18:49; Status DC Amlodipine Besylate (Norvasc) 10 mg DAILY PO Last administered on 11/17/17at 08: 05; Start 10/28/17 at 09:00 Potassium Chloride (Klor-Con) 20 meq TID PO Last administered on 11/17/17at 19: 35; Start 10/27/17 at 21:00 Ropinirole HCl (Requip) 0.5 mg TID PO Last administered on 11/08/17at 13:11; Start 10/27/17 at 21:00; Stop 11/08/17 at 18:28; Status DC Clonazepam (KlonoPIN) 0.5 mg BID92 PO Last administered on 11/02/17at 13:21; Start 11/02/17 at 09:00; Stop 11/02/17 at 18:52; Status DC Clonazepam (KlonoPIN) 0.25 mg QHS PO Last administered on 11/08/17at 19:35; Start 11/01/17 at 21:00; Stop 11/09/17 at 07:50; Status DC Clonazepam (KlonoPIN) 0.5 mg DAILY@1400 PO ; Start 11/03/17 at 14:00; Stop at 14:00; Status DC Clonazepam (KlonoPIN) 0.25 mg DAILY PO ; Start 11/03/17 at 09:00; Stop 11/03/17 at 09:00; Status DC Clonazepam (KlonoPIN) 0.25 mg DAILY PO Last administered on 11/08/17at 08:39; Start 11/04/17 at 09:00; Stop 11/09/17 at 07:50; Status DC Clonazepam (KlonoPIN) 0.5 mg BID92 PO Last administered on 11/03/17at 12:26; Start 11/03/17 at 09:00; Stop 11/04/17 at 08:59; Status DC Clonazepam (KlonoPIN) 0.5 mg DAILY@1400 PO ; Start 11/03/17 at 14:00; Stop at 14:00; Status DC Quetiapine Fumarate (SEROquel) 12.5 mg PRN BID PRN PO ANXIETY/MOOD STABILITY Last administered on 11/05/17at 07:57; Start 11/03/17 at 10:15 Clonazepam (KlonoPIN) 0.5 mg DAILY@1400 PO Last administered on 11/08/17at 13:10 ; Start 11/04/17 at 14:00; Stop 11/08/17 at 18:44; Status DC Bisacodyl (Dulcolax Supp) 10 mg PRN DAILY PRN [place] CONSTIPATION Last administered on 11/05/17at 07:58; Start 11/05/17 at 08:00 Quetiapine Fumarate (SEROquel) 12.5 mg BID@0900,1300 PO Last administered on at 13:05; Start 11/06/17 at 09:00; Stop 11/09/17 at 18:22; Status DC Alprazolam (Xanax) 0.25 mg PRN Q2HR PRN PO ANXIETY / AGITATION Last administered on 11/13/17at 09:54; Start 11/07/17 at 09:30 Ropinirole HCl (Requip) 1 mg TID PO Last administered on 11/17/17 19:35; Start 11/08/17 at 21:00 Clonazepam (KlonoPIN) 0.25 mg 1400 PO ; Start 11/09/17 at 14:00; Stop 11/09/17 at 14:00; Status DC Buspirone HCl (Buspar) 5 mg 0900,1300 PO Last administered on 11/17/17at 13:32; Start 11/09/17 at 09:00 Clonazepam (KlonoPIN) 0.5 mg TID PO Last administered on 11/17/17at 19:34; Start 11/09/17 at 09:00 Quetiapine Fumarate (SEROquel) 12.5 mg TID@0800,1200,1600 PO Last administered on 11/16/17at 16:06; Start 11/10/17 at 08:00; Stop 11/16/17 at 18:13; Status DC Quetiapine Fumarate (SEROquel) 12.5 mg DAILY@1800 PO Last administered on at 18:00; Start 11/10/17 at 18:00; Stop 11/13/17 at 19:38; Status DC Polyethylene Glycol (miraLAX) 17 gm DAILY PO Last administered on 11/17/17at 08: 04; Start 11/10/17 at 11:30 Carbidopa/Levodopa (Sinemet 25/100) 1 tab Q6H PO Last administered on at 08:13; Start 11/11/17 at 06:00; Stop 11/13/17 at 15:51; Status DC Carbidopa/Levodopa (Sinemet 25/100) 1 tab 6XDAY PO Last administered on at 19:35; Start 11/13/17 at 16:00 Quetiapine Fumarate (SEROquel) 12.5 mg HS PO Last administered on 11/15/17at 20: 28; Start 11/14/17 at 21:00; Stop 11/16/17 at 18:13; Status DC Quetiapine Fumarate (SEROquel) 12.5 mg QID PO ; Start 11/16/17 at 21:00; Stop at 21:00; Status DC Quetiapine Fumarate (SEROquel) 12.5 mg 0700,1200,1400,1700 PO Last administered on 11/17/17at 17:29; Start 11/17/17 at 07:00 Active Scripts Active Reported Meclizine Hcl 25 Mg Tablet 25 Mg PO PRN TID PRN Milk Of Magnesia (Magnesium Hydroxide) 2,400 Mg/10 Ml Oral.susp 2,400 Mg PO PRN DAILY PRN Maalox Advanced Suspension (Mag Hydrox/Aluminum Hyd/Simeth) 355 Ml Oral.susp 30 Ml PO PRN Q4HRS PRN Ondansetron Odt (Ondansetron) 4 Mg Tab.rapdis 4 Mg PO PRN BID PRN Imodium A-D (Loperamide HCl) 2 Mg Capsule 2 Mg PO PRN PRN Acetaminophen 325 Mg Tablet 650 Mg PO PRN Q4HRS PRN Sinemet Cr 50-200 Tablet (Carbidopa/Levodopa) 1 Each Tablet.er 1 Tab PO QHS Sinemet 25-100 Mg Tablet (Carbidopa/Levodopa) 1 Each Tablet 1 Tab PO TID AT 05/1700 Seroquel (Quetiapine Fumarate) 25 Mg Tablet 12.5 Mg PO DAILY Melatonin 5 Mg Tablet 5 Mg PO PRN QHS PRN Escitalopram Oxalate 5 Mg Tablet 15 Mg PO DAILY Clonazepam 0.5 Mg Tablet 0.5 Mg PO TID AT 01/07/1900 I have reviewed the current psychotropics carefully including drug interactions. Risk benefit ratio favors no change other than as noted in my dictated progress note. Diagnosis: Problems: (1) Mild cognitive impairment (2) Dementia in Alzheimer's disease with depression (3) Anxiety disorder (4) Major depressive disorder, recurrent episode (5) Impulse control disorder MARIAH SEAMAN MD November 17, 2017 20:31
--- NOTE | 2017-11-18 00:17 | PN ---
DATE: 11/16/2017 PSYCHIATRIC PROGRESS NOTE This is a late entry 11/16/2017 covers elements not covered in my initial note 11/16/2017. SUBJECTIVE: I met with the patient in the evening. The patient slept 7-3/4 hours previous evening, remains somewhat anxious, but little better with respect to tremors which helps reduce anxiety as well. She is receiving Sinemet 6 times [address] day per Dr[address] Crowell, frequently coming to the nursing staff wanting her next dosage of Sinemet as she gets closer to the administration time. REVIEW OF SYSTEMS: No CV, , pulmonary, eye, ENT system symptoms on review. Does admit to the tremors. MENTAL STATUS EXAM: Oriented to herself and situation. Speech moderate latency, often responses monosyllabic. Abstraction fair, computation impaired, language function intact. Mood and affect remain somewhat anxious, but improved. LABORATORY DATA: Reviewed. IMPRESSION: Unchanged from initial note. PLAN: Increase Seroquel. She is currently on 12.5 mg 4 times a day 8 a.m., 12 noon, 1600, 2100. We will change the 2100 dosage to the daytime to help reduce some of her anxiety, mood lability during the day since the bedtime dosage would have minimal effect for this especially at this low dosage. MAN Yeni SEAMAN MD DR: SONALI/giovana JOB#: [id number] / [id number]
[2017-11-18] MEDS: QUEtiapine 25 MG TABLET. PO SCH ×4 (05:36→17:08)
[2017-11-18] MEDS: CARBIDOPA/LEVODOPA 25/100MG TABLET PO SCH ×6 (05:37→22:12)
[2017-11-18 05:54] VITALS: BP 131/74
[2017-11-18] MEDS: rOPINIRole 1 MG TABLET. PO SCH ×3 (08:25→19:38)
[2017-11-18] MEDS: POLYETHYLENE GLYCOL 3350 17 GM PACKET. PO SCH (08:25)
[2017-11-18] MEDS: amLODIPine BESYLATE 10 MG TABLET PO SCH (08:26)
[2017-11-18] MEDS: busPIRone 5 MG TABLET. PO SCH ×2 (08:26→12:20)
[2017-11-18] MEDS: DULoxetine HCL 60 MG CAPSULE.DR PO SCH (08:26)
[2017-11-18] MEDS: POTASSIUM CHLORIDE 20 MEQ TABLET.ER. PO SCH ×3 (08:27→19:38)
[2017-11-18] MEDS: clonazePAM 0.5 MG TABLET PO SCH ×3 (08:28→19:39)
[2017-11-18 16:06] VITALS: BP 96/54
[2017-11-18] MEDS: MELATONIN 3 MG TABLET PO PRN (19:48)
--- NOTE | 2017-11-18 20:48 | PDOC ---
Exam Note: Mike Note: Please also refer to the separate dictated note~for this date of service dictated separately.~Patient seen individually. Discussed the patient with Nursing staff reviewed the chart.~Reviewed interim history and current functioning. Reviewed vital signs,~Labs/ Radiology~and current medications noted below. Continue current treatment with the changes noted in the dictated addendum note Assessment: Vital Signs: Vital Signs Date Time Temp Pulse Resp B/P (MAP) Pulse Ox O2 Delivery O2 Flow Rate FiO2 11/18/17 16:06 97.8 72 18 96/54 (68) 100 11/16/17 16:41 Room Air I&O Intake and Output 11/18/17 07:00 Intake Total 840 ml Balance 840 ml Intake Oral 840 ml Current Medications: Meds: Current Medications Multi-Ingredient Ointment (Analgesic [place]) 1 cherie PRN QID PRN TP MUSCLE PAIN; Start 10/27/17 at 01:00 Clonazepam (KlonoPIN) 0.5 mg TID PO Last administered on 11/01/17at 14:03; Start 10/27/17 at 09:00; Stop 11/01/17 at 19:14; Status DC Quetiapine Fumarate (SEROquel) 12.5 mg DAILY PO Last administered on 11/05/17at 09:22; Start 10/27/17 at 09:00; Stop 11/05/17 at 20:48; Status DC Citalopram Hydrobromide (CeleXA) 30 mg DAILY PO Last administered on 10/27/17at 10:12; Start 10/27/17 at 09:00; Stop 10/27/17 at 18:35; Status DC Melatonin 3 mg PRN QHS PRN PO INSOMNIA Last administered on 11/18/17at 19:48; Start 10/27/17 at 01:15 Acetaminophen (Tylenol) 650 mg PRN Q4HRS PRN PO PAIN / TEMP Last administered on 11/17/17at 19:49; Start 10/27/17 at 01:15 Carbidopa/Levodopa (Sinemet 25/100) 1 tab TIDAC PO Last administered on at 16:11; Start 10/27/17 at 07:30; Stop 11/10/17 at 18:28; Status DC Carbidopa/Levodopa (Sinemet Cr) 1 tab.sa QHS PO Last administered on 11/09/17 20:22; Start 10/27/17 at 21:00; Stop 11/10/17 at 18:26; Status DC Loperamide HCl (Imodium) 2 mg PRN QID PRN PO DIARRHEA; Start 10/27/17 at 01:15 Ondansetron HCl (Zofran Odt) 4 mg PRN BID PRN PO NAUSEA/VOMITING Last administered on 11/02/17 12:42; Start 10/27/17 at 01:15 Al Hydroxide/Mg Hydroxide (Mylanta Plus Xs) 30 ml PRN Q4HRS PRN PO DYSPEPSIA; Start 10/27/17 at 01:15 Magnesium Hydroxide (Milk Of Magnesia) 2,400 mg PRN DAILY PRN PO CONSTIPATION Last administered on 11/09/17 20:22; Start 10/27/17 at 01:15 Meclizine HCl (Antivert) 25 mg PRN TID PRN PO Dizziness; Start 10/27/17 at 01:15 Duloxetine HCl (Cymbalta) 30 mg DAILY PO Last administered on 10/30/17 07:46; Start 10/28/17 at 09:00; Stop 10/31/17 at 08:59; Status DC Duloxetine HCl (Cymbalta) 60 mg DAILY PO Last administered on 11/18/17 08:26; Start 10/31/17 at 09:00 Amlodipine Besylate (Norvasc) 5 mg 1X ONCE PO Last administered on 10/27/17 19 :58; Start 10/27/17 at 18:45; Stop 10/27/17 at 18:49; Status DC Amlodipine Besylate (Norvasc) 10 mg DAILY PO Last administered on 11/18/17 08: 26; Start 10/28/17 at 09:00 Potassium Chloride (Klor-Con) 20 meq TID PO Last administered on 11/18/17 19: 38; Start 10/27/17 at 21:00 Ropinirole HCl (Requip) 0.5 mg TID PO Last administered on 11/08/17 13:11; Start 10/27/17 at 21:00; Stop 11/08/17 at 18:28; Status DC Clonazepam (KlonoPIN) 0.5 mg BID92 PO Last administered on 11/02/17at 13:21; Start 11/02/17 at 09:00; Stop 11/02/17 at 18:52; Status DC Clonazepam (KlonoPIN) 0.25 mg QHS PO Last administered on 11/08/17at 19:35; Start 11/01/17 at 21:00; Stop 11/09/17 at 07:50; Status DC Clonazepam (KlonoPIN) 0.5 mg DAILY@1400 PO ; Start 11/03/17 at 14:00; Stop at 14:00; Status DC Clonazepam (KlonoPIN) 0.25 mg DAILY PO ; Start 11/03/17 at 09:00; Stop 11/03/17 at 09:00; Status DC Clonazepam (KlonoPIN) 0.25 mg DAILY PO Last administered on 11/08/17at 08:39; Start 11/04/17 at 09:00; Stop 11/09/17 at 07:50; Status DC Clonazepam (KlonoPIN) 0.5 mg BID92 PO Last administered on 11/03/17at 12:26; Start 11/03/17 at 09:00; Stop 11/04/17 at 08:59; Status DC Clonazepam (KlonoPIN) 0.5 mg DAILY@1400 PO ; Start 11/03/17 at 14:00; Stop at 14:00; Status DC Quetiapine Fumarate (SEROquel) 12.5 mg PRN BID PRN PO ANXIETY/MOOD STABILITY Last administered on 11/05/17at 07:57; Start 11/03/17 at 10:15 Clonazepam (KlonoPIN) 0.5 mg DAILY@1400 PO Last administered on 11/08/17at 13:10 ; Start 11/04/17 at 14:00; Stop 11/08/17 at 18:44; Status DC Bisacodyl (Dulcolax Supp) 10 mg PRN DAILY PRN [place] CONSTIPATION Last administered on 11/05/17at 07:58; Start 11/05/17 at 08:00 Quetiapine Fumarate (SEROquel) 12.5 mg BID@0900,1300 PO Last administered on at 13:05; Start 11/06/17 at 09:00; Stop 11/09/17 at 18:22; Status DC Alprazolam (Xanax) 0.25 mg PRN Q2HR PRN PO ANXIETY / AGITATION Last administered on 11/13/17at 09:54; Start 11/07/17 at 09:30 Ropinirole HCl (Requip) 1 mg TID PO Last administered on 11/18/17 19:38; Start 11/08/17 at 21:00 Clonazepam (KlonoPIN) 0.25 mg 1400 PO ; Start 11/09/17 at 14:00; Stop 11/09/17 at 14:00; Status DC Buspirone HCl (Buspar) 5 mg 0900,1300 PO Last administered on 11/18/17 12:20; Start 11/09/17 at 09:00 Clonazepam (KlonoPIN) 0.5 mg TID PO Last administered on 11/18/17at 19:39; Start 11/09/17 at 09:00 Quetiapine Fumarate (SEROquel) 12.5 mg TID@0800,1200,1600 PO Last administered on 11/16/17at 16:06; Start 11/10/17 at 08:00; Stop 11/16/17 at 18:13; Status DC Quetiapine Fumarate (SEROquel) 12.5 mg DAILY@1800 PO Last administered on at 18:00; Start 11/10/17 at 18:00; Stop 11/13/17 at 19:38; Status DC Polyethylene Glycol (miraLAX) 17 gm DAILY PO Last administered on 11/18/17 08: 25; Start 11/10/17 at 11:30 Carbidopa/Levodopa (Sinemet 25/100) 1 tab Q6H PO Last administered on at 08:13; Start 11/11/17 at 06:00; Stop 11/13/17 at 15:51; Status DC Carbidopa/Levodopa (Sinemet 25/100) 1 tab 6XDAY PO Last administered on at 19:38; Start 11/13/17 at 16:00 Quetiapine Fumarate (SEROquel) 12.5 mg HS PO Last administered on 11/15/17at 20: 28; Start 11/14/17 at 21:00; Stop 11/16/17 at 18:13; Status DC Quetiapine Fumarate (SEROquel) 12.5 mg QID PO ; Start 11/16/17 at 21:00; Stop at 21:00; Status DC Quetiapine Fumarate (SEROquel) 12.5 mg 0700,1200,1400,1700 PO Last administered on 11/18/17at 17:08; Start 11/17/17 at 07:00 Active Scripts Active Reported Meclizine Hcl 25 Mg Tablet 25 Mg PO PRN TID PRN Milk Of Magnesia (Magnesium Hydroxide) 2,400 Mg/10 Ml Oral.susp 2,400 Mg PO PRN DAILY PRN Maalox Advanced Suspension (Mag Hydrox/Aluminum Hyd/Simeth) 355 Ml Oral.susp 30 Ml PO PRN Q4HRS PRN Ondansetron Odt (Ondansetron) 4 Mg Tab.rapdis 4 Mg PO PRN BID PRN Imodium A-D (Loperamide HCl) 2 Mg Capsule 2 Mg PO PRN PRN Acetaminophen 325 Mg Tablet 650 Mg PO PRN Q4HRS PRN Sinemet Cr 50-200 Tablet (Carbidopa/Levodopa) 1 Each Tablet.er 1 Tab PO QHS Sinemet 25-100 Mg Tablet (Carbidopa/Levodopa) 1 Each Tablet 1 Tab PO TID AT 05/1700 Seroquel (Quetiapine Fumarate) 25 Mg Tablet 12.5 Mg PO DAILY Melatonin 5 Mg Tablet 5 Mg PO PRN QHS PRN Escitalopram Oxalate 5 Mg Tablet 15 Mg PO DAILY Clonazepam 0.5 Mg Tablet 0.5 Mg PO TID AT 01/07/1900 I have reviewed the current psychotropics carefully including drug interactions. Risk benefit ratio favors no change other than as noted in my dictated progress note. Diagnosis: Problems: (1) Mild cognitive impairment (2) Dementia in Alzheimer's disease with depression (3) Anxiety disorder (4) Major depressive disorder, recurrent episode (5) Impulse control disorder MARIAH SEAMAN MD November 18, 2017 20:48
[2017-11-19] MEDS ORDERED: ALPR0.25 PO (02:03)
[2017-11-19] MEDS ORDERED: BISA10SU55 RC (02:04)
[2017-11-19] MEDS ORDERED: CARB1TAB2 PO (02:05)
[2017-11-19] MEDS ORDERED: DULO60CA6 PO (02:06)
[2017-11-19] MEDS ORDERED: MELA3TAB2 PO (02:09)
[2017-11-19] MEDS ORDERED: METH29OI TP (02:10)
[2017-11-19] MEDS ORDERED: POLY2500 PO (02:12)
[2017-11-19] MEDS ORDERED: POTA20TA4 PO (02:13)
[2017-11-19] MEDS ORDERED: QUET25TA5 PO ×2 (02:16→02:20)
[2017-11-19] MEDS ORDERED: AMLO10TA4 PO (02:20)
[2017-11-19] MEDS ORDERED: BUSP5TAB PO (02:24)
[2017-11-19] MEDS ORDERED: ROPI1TAB PO (02:26)
[2017-11-19 05:48] VITALS: BP 111/62
[2017-11-19] MEDS: QUEtiapine 25 MG TABLET. PO SCH (06:12)
[2017-11-19] MEDS: CARBIDOPA/LEVODOPA 25/100MG TABLET PO SCH ×2 (06:13→10:20)
[2017-11-19] MEDS: rOPINIRole 1 MG TABLET. PO SCH (06:13)
[2017-11-19] MEDS: ACETAMINOPHEN 325 MG TABLET PO PRN (06:13)
[2017-11-19 08:39] VITALS: BP 111/62
[2017-11-19] MEDS: POLYETHYLENE GLYCOL 3350 17 GM PACKET. PO SCH (08:39)
[2017-11-19] MEDS: amLODIPine BESYLATE 10 MG TABLET PO SCH (08:39)
[2017-11-19] MEDS: DULoxetine HCL 60 MG CAPSULE.DR PO SCH (08:39)
[2017-11-19] MEDS: busPIRone 5 MG TABLET. PO SCH (08:39)
[2017-11-19] MEDS: POTASSIUM CHLORIDE 20 MEQ TABLET.ER. PO SCH (08:39)
[2017-11-19] MEDS: clonazePAM 0.5 MG TABLET PO SCH (08:41)
[2017-11-19] MEDS: ALPRAZolam 0.25 MG TABLET PO PRN (10:20)
--- NOTE | 2017-11-19 18:49 | PDOC ---
Exam Note: Mike Note: Please also refer to the separate dictated note~for this date of service dictated separately.~Patient seen individually. Discussed the patient with Nursing staff reviewed the chart.~Reviewed interim history and current functioning. Reviewed vital signs,~Labs/ Radiology~and current medications noted below. Continue current treatment with the changes noted in the dictated addendum note Assessment: Vital Signs: Vital Signs Date Time Temp Pulse Resp B/P (MAP) Pulse Ox O2 Delivery O2 Flow Rate FiO2 11/19/17 08:39 71 111/62 11/19/17 05:48 97.8 16 97 Room Air I&O Intake and Output 11/19/17 07:00 Intake Total 1580 ml Balance 1580 ml Intake Oral 1580 ml Current Medications: Meds: Current Medications Multi-Ingredient Ointment (Analgesic Conifer) 1 kaitlyn PRN QID PRN TP MUSCLE PAIN; Start 10/27/17 at 01:00; Stop 11/19/17 at 11:38; Status DC Clonazepam (KlonoPIN) 0.5 mg TID PO Last administered on 11/01/17 14:03; Start 10/27/17 at 09:00; Stop 11/01/17 at 19:14; Status DC Quetiapine Fumarate (SEROquel) 12.5 mg DAILY PO Last administered on 11/05/17at 09:22; Start 10/27/17 at 09:00; Stop 11/05/17 at 20:48; Status DC Citalopram Hydrobromide (CeleXA) 30 mg DAILY PO Last administered on 10/27/17at 10:12; Start 10/27/17 at 09:00; Stop 10/27/17 at 18:35; Status DC Melatonin 3 mg PRN QHS PRN PO INSOMNIA Last administered on 11/18/17at 19:48; Start 10/27/17 at 01:15; Stop 11/19/17 at 11:38; Status DC Acetaminophen (Tylenol) 650 mg PRN Q4HRS PRN PO PAIN / TEMP Last administered on 11/19/17at 06:13; Start 10/27/17 at 01:15; Stop 11/19/17 at 11:38; Status DC Carbidopa/Levodopa (Sinemet 25/100) 1 tab TIDAC PO Last administered on at 16:11; Start 10/27/17 at 07:30; Stop 11/10/17 at 18:28; Status DC Carbidopa/Levodopa (Sinemet Cr) 1 tab.sa QHS PO Last administered on 11/09/17 20:22; Start 10/27/17 at 21:00; Stop 11/10/17 at 18:26; Status DC Loperamide HCl (Imodium) 2 mg PRN QID PRN PO DIARRHEA; Start 10/27/17 at 01:15; Stop 11/19/17 at 11:38; Status DC Ondansetron HCl (Zofran Odt) 4 mg PRN BID PRN PO NAUSEA/VOMITING Last administered on 11/02/17 12:42; Start 10/27/17 at 01:15; Stop 11/19/17 at 11:38; Status DC Al Hydroxide/Mg Hydroxide (Mylanta Plus Xs) 30 ml PRN Q4HRS PRN PO DYSPEPSIA; Start 10/27/17 at 01:15; Stop 11/19/17 at 11:38; Status DC Magnesium Hydroxide (Milk Of Magnesia) 2,400 mg PRN DAILY PRN PO CONSTIPATION Last administered on 11/09/17 20:22; Start 10/27/17 at 01:15; Stop 11/19/17 at 11:38; Status DC Meclizine HCl (Antivert) 25 mg PRN TID PRN PO Dizziness; Start 10/27/17 at 01:15 ; Stop 11/19/17 at 11:38; Status DC Duloxetine HCl (Cymbalta) 30 mg DAILY PO Last administered on 10/30/17at 07:46; Start 10/28/17 at 09:00; Stop 10/31/17 at 08:59; Status DC Duloxetine HCl (Cymbalta) 60 mg DAILY PO Last administered on 11/19/17at 08:39; Start 10/31/17 at 09:00; Stop 11/19/17 at 11:38; Status DC Amlodipine Besylate (Norvasc) 5 mg 1X ONCE PO Last administered on 10/27/17at 19 :58; Start 10/27/17 at 18:45; Stop 10/27/17 at 18:49; Status DC Amlodipine Besylate (Norvasc) 10 mg DAILY PO Last administered on 11/19/17at 08: 39; Start 10/28/17 at 09:00; Stop 11/19/17 at 11:38; Status DC Potassium Chloride (Klor-Con) 20 meq TID PO Last administered on 11/19/17at 08: 39; Start 10/27/17 at 21:00; Stop 11/19/17 at 11:38; Status DC Ropinirole HCl (Requip) 0.5 mg TID PO Last administered on 11/08/17at 13:11; Start 10/27/17 at 21:00; Stop 11/08/17 at 18:28; Status DC Clonazepam (KlonoPIN) 0.5 mg BID92 PO Last administered on 11/02/17at 13:21; Start 11/02/17 at 09:00; Stop 11/02/17 at 18:52; Status DC Clonazepam (KlonoPIN) 0.25 mg QHS PO Last administered on 11/08/17at 19:35; Start 11/01/17 at 21:00; Stop 11/09/17 at 07:50; Status DC Clonazepam (KlonoPIN) 0.5 mg DAILY@1400 PO ; Start 11/03/17 at 14:00; Stop at 14:00; Status DC Clonazepam (KlonoPIN) 0.25 mg DAILY PO ; Start 11/03/17 at 09:00; Stop 11/03/17 at 09:00; Status DC Clonazepam (KlonoPIN) 0.25 mg DAILY PO Last administered on 11/08/17at 08:39; Start 11/04/17 at 09:00; Stop 11/09/17 at 07:50; Status DC Clonazepam (KlonoPIN) 0.5 mg BID92 PO Last administered on 11/03/17at 12:26; Start 11/03/17 at 09:00; Stop 11/04/17 at 08:59; Status DC Clonazepam (KlonoPIN) 0.5 mg DAILY@1400 PO ; Start 11/03/17 at 14:00; Stop at 14:00; Status DC Quetiapine Fumarate (SEROquel) 12.5 mg PRN BID PRN PO ANXIETY/MOOD STABILITY Last administered on 11/05/17at 07:57; Start 11/03/17 at 10:15; Stop 11/19/17 at 11:38; Status DC Clonazepam (KlonoPIN) 0.5 mg DAILY@1400 PO Last administered on 11/08/17at 13:10 ; Start 11/04/17 at 14:00; Stop 11/08/17 at 18:44; Status DC Bisacodyl (Dulcolax Supp) 10 mg PRN DAILY PRN TX CONSTIPATION Last administered on 11/05/17at 07:58; Start 11/05/17 at 08:00; Stop 11/19/17 at 11:38 ; Status DC Quetiapine Fumarate (SEROquel) 12.5 mg BID@0900,1300 PO Last administered on at 13:05; Start 11/06/17 at 09:00; Stop 11/09/17 at 18:22; Status DC Alprazolam (Xanax) 0.25 mg PRN Q2HR PRN PO ANXIETY / AGITATION Last administered on 11/19/17at 10:20; Start 11/07/17 at 09:30; Stop 11/19/17 at 11:38 ; Status DC Ropinirole HCl (Requip) 1 mg TID PO Last administered on 11/19/17at 06:13; Start 11/08/17 at 21:00; Stop 11/19/17 at 11:38; Status DC Clonazepam (KlonoPIN) 0.25 mg 1400 PO ; Start 11/09/17 at 14:00; Stop 11/09/17 at 14:00; Status DC Buspirone HCl (Buspar) 5 mg 0900,1300 PO Last administered on 11/19/17at 08:39; Start 11/09/17 at 09:00; Stop 11/19/17 at 11:38; Status DC Clonazepam (KlonoPIN) 0.5 mg TID PO Last administered on 11/19/17at 08:41; Start 11/09/17 at 09:00; Stop 11/19/17 at 11:38; Status DC Quetiapine Fumarate (SEROquel) 12.5 mg TID@0800,1200,1600 PO Last administered on 11/16/17at 16:06; Start 11/10/17 at 08:00; Stop 11/16/17 at 18:13; Status DC Quetiapine Fumarate (SEROquel) 12.5 mg DAILY@1800 PO Last administered on at 18:00; Start 11/10/17 at 18:00; Stop 11/13/17 at 19:38; Status DC Polyethylene Glycol (miraLAX) 17 gm DAILY PO Last administered on 11/19/17at 08: 39; Start 11/10/17 at 11:30; Stop 11/19/17 at 11:38; Status DC Carbidopa/Levodopa (Sinemet 25/100) 1 tab Q6H PO Last administered on at 08:13; Start 11/11/17 at 06:00; Stop 11/13/17 at 15:51; Status DC Carbidopa/Levodopa (Sinemet 25/100) 1 tab 6XDAY PO Last administered on at 10:20; Start 11/13/17 at 16:00; Stop 11/19/17 at 11:38; Status DC Quetiapine Fumarate (SEROquel) 12.5 mg HS PO Last administered on 11/15/17at 20: 28; Start 11/14/17 at 21:00; Stop 11/16/17 at 18:13; Status DC Quetiapine Fumarate (SEROquel) 12.5 mg QID PO ; Start 11/16/17 at 21:00; Stop at 21:00; Status DC Quetiapine Fumarate (SEROquel) 12.5 mg 0700,1200,1400,1700 PO Last administered on 11/19/17at 06:12; Start 11/17/17 at 07:00; Stop 11/19/17 at 11:38 ; Status DC Active Scripts Active Reported Requip (Ropinirole Hcl) 1 Mg Tablet 1 Mg PO TID Buspirone Hcl 5 Mg Tablet 5 Mg PO 0900, 1300 Norvasc (Amlodipine Besylate) 10 Mg Tablet 10 Mg PO DAILY Hold for SBP less than 100. After a held dose, reassess in 2 hours. If SBP is above threshold, administer dose as ordered. If SBP is below threshold, contact provider for additional instructions. Seroquel (Quetiapine Fumarate) 25 Mg Tablet 12.5 Mg PO QID Seroquel (Quetiapine Fumarate) 25 Mg Tablet 12.5 Mg PO PRN BID PRN Klor-Con M20 (Potassium Chloride) 20 Meq Tab.er.prt 20 Meq PO TID Give with food. DO NOT CRUSH OR CHEW. Polyethylene Glycol 3350 2,500 Gm Powder 17 Gm PO DAILY Analgesic Conifer (Methyl Salicylate/Menthol) 28 Gm Oint...g. 1 Kaitlyn TP PRN QID PRN Melatonin 3 Mg Tablet 3 Mg PO PRN QHS PRN Cymbalta (Duloxetine Hcl) 60 Mg Capsule.dr 60 Mg PO DAILY do not crush or chew Sinemet 25-100 Mg Tablet (Carbidopa/Levodopa) 1 Each Tablet 1 Each PO 6XDAY Dulcolax (Bisacodyl) 10 Mg Supp.rect 10 Mg RC PRN DAILY PRN Xanax (Alprazolam) 0.25 Mg Tablet 0.25 Mg PO PRN Q2HR PRN Meclizine Hcl 25 Mg Tablet 25 Mg PO PRN TID PRN Milk Of Magnesia (Magnesium Hydroxide) 2,400 Mg/10 Ml Oral.susp 2,400 Mg PO PRN DAILY PRN Maalox Advanced Suspension (Mag Hydrox/Aluminum Hyd/Simeth) 355 Ml Oral.susp 30 Ml PO PRN Q4HRS PRN Ondansetron Odt (Ondansetron) 4 Mg Tab.rapdis 4 Mg PO PRN BID PRN Dissolve on tongue Imodium A-D (Loperamide HCl) 2 Mg Capsule 2 Mg PO PRN QID PRN Not to exceed 8 capsules in 24hrs. Acetaminophen 325 Mg Tablet 650 Mg PO PRN Q4HRS PRN Clonazepam 0.5 Mg Tablet 0.5 Mg PO TID I have reviewed the current psychotropics carefully including drug interactions. Risk benefit ratio favors no change other than as noted in my dictated progress note. Diagnosis: Problems: (1) Impulse control disorder (2) Major depressive disorder, recurrent episode (3) Anxiety disorder (4) Dementia in Alzheimer's disease with depression (5) Mild cognitive impairment MARIAH SEAMAN MD November 19, 2017 18:48
--- NOTE | 2017-11-19 21:21 | PN ---
DATE: 11/18/2017 This is a late entry, 11/18/2017, covers the elements not covered in my initial note, 11/18/2017. SUBJECTIVE: I met with the patient in the evening and staffed at treatment team meeting with the entire team in the morning. The patient remains somewhat anxious, restless at times, preoccupied with the parkinsonian tremors, but these are improved and the anxiety seems better. REVIEW OF SYSTEMS: No CV, , pulmonary, eye system symptoms on review. MENTAL STATUS EXAM: Oriented to herself and situation. Speech has some latency, coherent. Abstraction fair, computation impaired, language function intact, attention span short. Mood and affect showing improvement. LABORATORY DATA: Reviewed. IMPRESSION: Unchanged from initial note. PLAN: Continue psychotropics as mentioned in my initial note. MAN Yeni SEAMAN MD DR: SONALI/giovana JOB#: [id number] / [id number]
--- NOTE | 2017-11-19 21:22 | PN ---
DATE: 11/17/2017 This is a late entry for 11/17/2017 covers elements not covered in my initial note of 11/17/2017. SUBJECTIVE: I met with the patient in the evening. The patient slept 7-3/4 hours, has been anxious, frequently watching the clock to get the next dosage of Sinemet. Does complain of some tremors. REVIEW OF SYSTEMS: Impaired ambulation with walker. No CV, , eye, ENT system symptoms on review. MENTAL STATUS EXAM: Oriented to herself and situation. Speech has some latency, coherent, low in volume. Abstraction fair, computation impaired, language function intact. Mood and affect still somewhat dysphoric, anxious, but showing improvement. IMPRESSION: Unchanged from initial note. PLAN: Continue psychotropics mentioned in my initial note. MAN Yeni SEAMAN MD DR: SONALI/giovana JOB#: [id number] / [id number]
--- NOTE | 2017-11-23 22:48 | DS ---
DATE OF DISCHARGE: 11/19/2017 DISCHARGE SUMMARY/PSYCHIATRIC PROGRESS NOTE REASON FOR ADMISSION: Please refer to the admission history for details. Briefly, the patient is a 71-year-old female referred to us from [facility] by her primary care physician on account of worsening symptoms of depression and suicidal statements. The patient had cut her left forearm with a razor blade, left a suicide note for the family. She had been extremely despondent about her worsening parkinsonian tremors and inadequate response to treatment for this, felt hopeless, helpless, worthless, resulting in this suicide attempt and the referral to us. SIGNIFICANT FINDINGS AND CLINICAL COURSE: Following admission, the patient was seen daily individually by myself, followed medically per Dr. Horner/Dr. Walters/Dr. Camargo. She is extremely withdrawn, depressed, had tremors. Neurology consult for Parkinson was requested with Dr. Crowell and he made changes in her Sinemet from the extended release to the immediate release, which seemed to be more helpful on an every 3-hour basis. Adjustments were made in her psychotropics and she seemed to respond to a combination of Seroquel 12.5 mg 4 times a day for her ongoing psychotic symptoms, mood lability along with Seroquel 12.5 mg b.i.d. p.r.n., Cymbalta 60 mg a day, Klonopin 0.5 mg 3 times a day with a plan to gradually taper it as an outpatient. She was also on BuSpar 5 mg twice a day, melatonin 3 mg at bedtime p.r.n. CONDITION AT DISCHARGE: Improved. REVIEW OF SYSTEMS: Prior to discharge, 11/19/2017, ambulation impaired with walker; some tremors, but improved. No CV, , pulmonary, eye, ENT system symptoms on review. MENTAL STATUS EXAM: Oriented to herself and situation. Speech moderate latency, often responses monosyllabic. Abstraction fair, computation impaired, language function intact. Mood and affect improved. FINAL DIAGNOSES: Major depressive disorder, recurrent, severe with suicide attempt in partial remission. The patient denied any suicidal ideation at discharge. Anxiety disorder, unspecified; cognitive disorder, unspecified; Parkinson disease. Rest unchanged from admission. DISCHARGE MEDICATIONS: Please refer to the [facility]. DISCHARGE INSTRUCTIONS: Outpatient psychiatric and medical followup at [facility]. Time for discharge day management greater than 30 minutes. MAN Yeni SEAMAN MD DR: Jey JOB#: [id number] / [id number]
== END 2017-11-19 11:37 | DRG 885 ==
LOC: GEROPSY 00:28
PROVIDERS: ADMIT Psychiatry & Neurology Psychiatry; ATTEND Psychiatry & Neurology Psychiatry
DX: F33.41 Major depressive disorder, recurrent, in partial remission (principal); G20 Parkinson's disease; R45.851 Suicidal ideations; F02.80 Dementia in other diseases classified elsewhere, unspecified severity, without behavioral disturbance, psychotic disturbance, mood disturbance, and anxiety; G30.9 Alzheimer's disease, unspecified; F41.9 Anxiety disorder, unspecified; F63.9 Impulse disorder, unspecified; F09 Unspecified mental disorder due to known physiological condition; F01.50 Vascular dementia, unspecified severity, without behavioral disturbance, psychotic disturbance, mood disturbance, and anxiety; I10 Essential (primary) hypertension; K59.00 Constipation, unspecified; R29.6 Repeated falls; Z66 Do not resuscitate; Z91.5 Personal history of self-harm
CPT/HCPCS: 36415; 80053; 80061; 81001; 82306; 82607; 83036; 83540; 83550; 83735; 84436; 84443; 84480; 85025; 86593; 87086; 93005; Q0162; 99285-25